=== PATIENT | male | born 1960 | race Hispanic/Latino ===

== ENCOUNTER 2023-10-28 08:37 | Outpatient (CLI) | payer MEDICARE, MEDICAID, SELFPAY ==
--- NOTE | 2023-10-28 09:09 | ECG_ITS ---
Test Date: 2023-10-28 09:46:30 Measurements Intervals [place] Rate: 78 P: 41 KS: 120 QRS: -21 QRSD: 79 T: 11 QT: 345 QTc: 394 Interpretive Statements SINUS RHYTHM BASELINE ARTIFACT- I, III, AVR, AVL, AVF, V1-V6 NORMAL ECG No previous ECG available for comparison Electronically Signed On 10-28-2023 10:49:25 CDT by Zay Stapleton D.O.
[2023-10-28 10:06] LABS: Basophils Percent Auto 0.4 % (0.2-1.2); Eosinophils Absolute Auto 0.1 K/mm3 (0-0.3); Eosinophils Percent Auto 1.7 % (0-4.4); Hemoglobin 12.3 g/dL (14.0-18.0); Immature Granulocyte Absolute 0.01 K/mm3 (0.00-0.031); Immature Granulocyte Percent A 0.2 % (0-0.5); Lymphocytes Absolute Auto 1.09 K/mm3 (0.9-3.2); Lymphocytes Percent Auto 23.2 % (18.3-44.2); Mean Corpuscular HGB Conc 34.2 g/dl (32-36); Mean Corpuscular Hemoglobin 30.4 pg (26-34); Mean Corpuscular Volume 89.1 fl (80-100); Monocytes Absolute Auto 0.5 K/mm3 (0.1-0.6); Monocytes Percent Auto 10.4 % (2.6-8.5); Neutrophils Percent Auto 64.1 % (45.5-73.1); Platelet Count Result 355 k/mm3 (150-375); Red Blood Count 4.04 M/mm3 (4.6-6.20); Red Cell Distribution Width 12.7 % (11.5-14.5); White Blood Count 4.7 K/mm3 (4.5-10.0)
[2023-10-28 10:26] LABS: Alanine Aminotransferase 17 U/L (6-50); Albumin Level 4.3 g/dL (3.5-5.1); Alkaline Phosphatase 93 U/L (38-126); Anion Gap 5 mmol/L (4-12); Aspartate Amino Transferase 23 U/L (17-59); Bilirubin,Total 0.7 mg/dL (0.2-1.3); Blood Urea Nitrogen 6 mg/dL (9-20); CRP < 0.5 mg/dL (<1.0); Calcium 9.5 mg/dL (8.4-10.2); Carbon Dioxide 27 mmol/L (22-30); Chloride 102 mmol/L (98-107); Estimated Glomerular Filt Rate > 60; Glucose 116 mg/dL (65-110); Potassium 4.4 mmol/L (3.4-5.0); Sodium 134 mmol/L (137-145)
[2023-10-28 10:33] LABS: Urine Cotinine NEGATIVE
[2023-10-28 10:36] LABS: Erythrocyte Sedimentation Rate 11 mm/hr (0-20)
[2023-10-28 11:03] LABS: Hemoglobin A1C 5.6 % (<5.7)
== END 2023-10-28 08:38 | disposition home or self-care (01) ==
LOC: ANHSURGERY 08:42
PROVIDERS: PCP Internal Medicine; Visit Provider Orthopaedic Surgery
DX: T84.84XA Pain due to internal orthopedic prosthetic devices, implants and grafts, initial encounter (principal); Z96.659 Presence of unspecified artificial knee joint
CPT/HCPCS: 36415; 80053; 80307; 83036; 85025; 85652; 86140; 86850; 86900; 86901; 87077; 87081; 87181; 93005

== ENCOUNTER 2023-11-10 07:00 | Inpatient (IN) | payer MEDICARE, MEDICAID, SELFPAY ==
[2023-11-03 09:24] VITALS: BMI 27.5
--- NOTE | 2023-11-03 11:55 | PC.NURSE ---
Report to the Outpatient Waiting Room, entrance under the green pavilion located off [facility], at time __6:00AM on date __11/10/23 . Planned Procedure Time: __7:30AM . Time changes happen often and if your time is changed the preop area will call you the afternoon before. - You and your visitor will be asked to self-screen and do not enter if you have any COVID symptoms. - A mask is optional within the hospital at this time. Patients may have clear liquids (water, carbonated beverages, clear teas, apple juice) until 3 hours prior to surgery with a maximum of 20 ounces. - No food from midnight until time of surgery. Take the following medications with a SIP of water the morning of surgery: ___BENZTROPINE, BUPROPION, LEVOTHYROXINE DO NOT STOP ANY OF YOUR OTHER PRESCRIPTION MEDICATIONS PRIOR TO SURGERY ?EXCEPT THE FOLLOWING Medications to discontinue per physician ___HOLD ASPIRIN, NAPROXEN & ALL VITAMINS/SUPPLEMENTS 7 DAYS PRE-OP PER DR LIM Date to take last dose____11/02/23 Please no make-up, nail upper sorbian, hairspray, perfume, deodorant, or body powder the day of surgery. No jewelry (including any body piercings) or valuables the day of surgery, leave them at home. Please take a shower or bath the night before, or the morning of, surgery with an antibacterial soap. Wear comfortable, loose fitting clothing. - Jewelry must be removed prior to entering the operating room. Rings and piercings that are not removed may be cut off. - The hospital will not accept responsibility for valuables. - Please leave all valuables, including medications, at home the day of surgery. If you are going home after surgery, a licensed drivers' cash clerk must drive you home. - NO public transportation without another adult if you receive anesthesia. - We recommend that an adult stay with you for 24 hours following discharge. - We also recommend that you do not drive, make important decision, drink alcoholic beverages, or take any drugs that were not prescribed by your health care provider for at least 24 hours after your discharge time. Follow any additional instructions given to you from your surgeon. HIBICLENS SHOWER PER DR LIM. DON'T REMOVE ANY HAIR FROM LEGS PRE-OP. If you or anyone in your household have experienced Covid symptoms in the past week, please notify your surgeon or the nurse liaison at the phone number below for possible testing. Telephone instructions given to ____PATIENT & CASE WORKER and asked if any additional questions and then verbalized understanding. Patient advised to call surgeon office or pre surgery nurse liaison [phone] if any additional questions.
--- NOTE | 2023-11-09 11:04 | P.HP_ITS ---
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 Barajas who presents today for revision of his left [place] partial knee replacement to total knee replacement. Patient underwent [place] partial knee replacement in October of 2017. He had uneventful recovery. Overall knee was doing well for him. Patient started experiencing pain in the knee that started earlier this year. At this point patient is having rather significant pain in the knee on a daily basis. He has been using a 4 wheeled walker because of the pain. He has developed severe lateral compartment osteoarthritis in the knee. At this point it is bone on bone. Patient has been taking naproxen 500 mg b.i.d. without improvement of his symptoms. Aspiration was done at [place] which was normal and cultures were negative.. He is had a sed rate and CRP blood work done which were both normal as well. This would rule out infection. Patient is having significant pain on a daily basis and feels he would like to proceed with revision his partial knee replacement to total knee replacement. Review of Systems Review of Systems: All systems reviewed & are unremarkable except as noted in HPI and below PMFSH Past Medical History Medical History Pure hypercholesterolemia, unspecified Type 2 diabetes mellitus with hyperglycemia Surgical History Surgical History History of cataract extraction History of hand surgery left History of knee surgery Left Uni- Dr Hinton Social History Social History Smoking packs per day: 1.5 Smoking cigarettes per day: 30.0 Years smoked: 30 Smoking pack-years: 45.00 Smoking status: Former smoker Tobacco type: cigarettes Smoking end date: 10/25/06 Alcohol intake: former Alcohol use details: QUIT 44 YRS AGO Substance use type: does not use Do You Feel Safe in your Home?: Yes Lack of Transportation: No Lack of Food: Never True Current Housing: I Have Housing Concerned About Future Housing: No Difficulty Paying Gas/Electric Bills: No Difficulty Paying for Meds: No Currently Unemployed: No Education: High School Diploma/GED Difficulty w/ Childcare or Family Care: No Living arrangements: alone Additional living arrangements comments: supervised housing Occupation/Education: unemployed Spiritual care concerns: No Meds Home Medications and Allergies Home Medications Medication Instructions Recorded Confirmed Type allopurinol 100 mg tablet 100 mg PO DAILY 05/03/19 11/03/23 History benztropine 1 mg tablet 1 mg PO BID 05/03/19 11/03/23 History bupropion HCl 150 mg 24 hr tablet, See Rx Instructions .Route .COMPLEX 05/03/19 11/03/23 History extended release ezetimibe 10 mg tablet (Zetia) 10 mg PO DAILY 05/03/19 11/03/23 History omeprazole 20 mg capsule,delayed 20 mg PO DAILY 05/03/19 11/03/23 History release risperidone 4 mg tablet 4 mg PO BID 05/03/19 11/03/23 History simvastatin 20 mg tablet 20 mg PO QPM 05/03/19 11/03/23 History mecobalamin (vitamin B12) 1,000 1,000 mcg PO DAILY 11/09/19 11/03/23 History mcg chewable tablet tamsulosin 0.4 mg capsule 0.4 mg PO HS 11/09/19 11/03/23 History vitamin E (dl, acetate) 180 mg 400 mg PO DAILY 11/09/19 11/03/23 History (400 unit) capsule pen needle, diabetic 31 gauge x See Rx Instructions .Route 05/21/21 11/03/23 Rx 5/16 (Easy Touch) .COMPLEX #100 ea blood sugar diagnostic #300 ea 07/02/21 10/28/23 Rx lancets 33 gauge (OneTouch Delica #300 ea 10/30/22 10/28/23 Rx Plus Lancet) acetaminophen 500 mg tablet 1,000 mg PO Q8-10H PRN Pain 11/03/23 11/03/23 History aspirin 81 mg tablet 81 mg PO DAILY 11/03/23 11/03/23 History insulin glargine 100 unit/mL (3 30 unit subcut QAM 11/03/23 11/03/23 History mL) subcutaneous pen (Lantus Solostar U-100 Insulin) levothyroxine 25 mcg tablet 25 mcg PO QAM 11/03/23 11/03/23 History lidocaine 5 % topical patch 1 patch topical BID PRN Pain 11/03/23 11/03/23 History metformin 500 mg tablet 1,000 mg PO QPM 11/03/23 11/03/23 History mupirocin 2 % topical ointment 1 applic topical BID #22 grams 11/03/23 Rx naproxen 500 mg tablet 500 mg PO BID PRN Pain 11/03/23 11/03/23 History Allergies Allergy/AdvReac Type Severity Reaction Status Date / Time sulfamethoxazole Allergy Severe Unknown Verified 11/03/23 09:18 [From Bactrim] trimethoprim [From Bactrim] Allergy Severe Unknown Verified 11/03/23 09:18 Exam Narrative: 63-year-old male alert. BMI is 27.5. H e has a moderate effusion in the left knee. Range of motion is from 0-135 degrees. Zzzi-ki-xumleabi lateral pseudolaxity to varus stress. No medial laxity. No tenderness over the medial aspect of the knee. Moderate pain with patellofemoral grind. Mild lateral joint line tenderness. Hip range of motion is full without discomfort, negative Stinchfield maneuver. He has extensive venous stasis skin changes in his calves. No edema in lower extremities. Resp: Auscultation: clear to auscultation bilaterally Cardio: Rate: regular rate Rhythm: regular rhythm Assessment and Plan Assessment and plan (1) Status post unicompartmental knee replacement, left: Code(s): Z96.652 - Presence of left artificial knee joint Status: Acute Assessment and Plan: 63-year-old male who has developed lateral compartment osteoarthritis in the left knee since his partial knee replacement in 2018. He is having significant symptoms on a daily basis. Anti-inflammatories are not improving his pain level. The option of revision of his left knee from partial knee replacement to total knee replacement was discussed and patient would like to proceed with that. Surgical procedure as well as the risks and complications were discussed in detail and all questions were answered and we will proceed. He will see his primary care doctor pre-surgical clearance. He will stop his naproxen and his baby aspirin 1 week prior to surgery. 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 Hemoglobin is 12.3 and platelets are 355. Chem panel was all within normal limits. Hemoglobin A1c is 5.6.
[2023-11-10] VITALS (14 sets, daily range): BP systolic 133–159; BP diastolic 67–85; PULSE 76–88; RESP 12–20; TEMP 36.1–36.9; O2SAT 94–99; BMI 22.5
--- NOTE | ~2023-11-10 | XR_ITS ---
EXAMINATION: [id number] DATE: 11/10/2023 12:10 CDT INDICATION: Left total knee arthroplasty TECHNIQUE: 2 views left knee FINDINGS: There is a left total knee arthroplasty in expected position. Subcutaneous gas with fluid and air in the joint and overlying skin sarbjit are consistent with recent surgery. No evidence of pe riprosthetic fracture. IMPRESSION: 1. Recent left total knee arthroplasty. Reviewed, dictated and finalized at location B.
[2023-11-10] MEDS: LACTATED RINGERS 1,000 ML 30 ML IV CONT ×2 (06:48→12:07)
[2023-11-10] MEDS: VANCOMYCIN 1,250 MG/NS 250 ML BAG 166.67 MG IVPB (06:49)
[2023-11-10 06:50] LABS: Glucose Point of Care 101 mg/dl (65-105)
[2023-11-10] MEDS: ACETAMINOPHEN 500 MG TABLET 1000 MG PO (06:50)
[2023-11-10] MEDS: TRANEXAMIC ACID 1,000MG/ISO100 1,000 MG/100 ML BAG 200 MG IVPB (06:55)
--- NOTE | 2023-11-10 07:10 | WPDHPUPDATE1 ---
History and Physical Update Update Date/Time: 11/10/23 07:10 History and Physical has been reviewed, including an updated exam of the patient. There are NO changes in the patient's condition. Risks, benefits, and alternatives have been discussed and questions answered. Patient agrees to proceed with procedure.
--- NOTE | 2023-11-10 07:17 | WPDANESEPPF ---
Anes - Initial Pre Proc Eval Procedure: Operation Date: 11/10/23 07:30 Proposed Procedures p Revision Left Total Knee Arthroplasty - Hitesh Hinton MD Date/Time: 11/10/23 07:17 Surgeon: Hitesh Hinton MD Pre Op Diagnosis: failed partial left total knee,valgus deformity Patient Data Age: 63 Gender: M Height: 1.65 m Weight: 73.6 kg Last Vital Signs Temp 98.1 F 11/10/23 06:30 Pulse 79 11/10/23 06:30 Resp 18 11/10/23 06:30 BP 144/76 H 11/10/23 06:30 Pulse Ox 99 11/10/23 06:30 O2 Del Method Room Air 11/10/23 06:30 Allergies Allergy/AdvReac Type Severity Reaction Status Date / Time sulfamethoxazole Allergy Severe Unknown Verified 11/10/23 06:27 [From Bactrim] trimethoprim [From Bactrim] Allergy Severe Unknown Verified 11/10/23 06:27 Home Medications Medication Instructions Recorded Confirmed Type allopurinol 100 mg tablet 100 mg PO DAILY 05/03/19 11/10/23 History benztropine 1 mg tablet 1 mg PO BID 05/03/19 11/10/23 History bupropion HCl 150 mg 24 hr tablet, See Rx Instructions .Route .COMPLEX 05/03/19 11/10/23 History extended release ezetimibe 10 mg tablet (Zetia) 10 mg PO DAILY 05/03/19 11/10/23 History omeprazole 20 mg capsule,delayed 20 mg PO DAILY 05/03/19 11/10/23 History release risperidone 4 mg tablet 4 mg PO BID 05/03/19 11/10/23 History simvastatin 20 mg tablet 20 mg PO QPM 05/03/19 11/10/23 History mecobalamin (vitamin B12) 1,000 1,000 mcg PO DAILY 11/09/19 11/10/23 History mcg chewable tablet tamsulosin 0.4 mg capsule 0.4 mg PO HS 11/09/19 11/10/23 History vitamin E (dl, acetate) 180 mg 400 mg PO DAILY 11/09/19 11/10/23 History (400 unit) capsule pen needle, diabetic 31 gauge x See Rx Instructions .Route 05/21/21 11/10/23 Rx 09/09 (Easy Touch) .COMPLEX #100 ea blood sugar diagnostic #300 ea 07/02/21 11/10/23 Rx lancets 33 gauge (OneTouch Delica #300 ea 10/30/22 11/10/23 Rx Plus Lancet) acetaminophen 500 mg tablet 1,000 mg PO Q8-10H PRN Pain 11/03/23 11/10/23 History aspirin 81 mg tablet 81 mg PO DAILY 11/03/23 11/10/23 History insulin glargine 100 unit/mL (3 30 unit subcut QAM 11/03/23 11/10/23 History mL) subcutaneous pen (Lantus Solostar U-100 Insulin) levothyroxine 25 mcg tablet 25 mcg PO QAM 11/03/23 11/10/23 History lidocaine 5 % topical patch 1 patch topical BID PRN Pain 11/03/23 11/10/23 History metformin 500 mg tablet 1,000 mg PO QPM 11/03/23 11/10/23 History mupirocin 2 % topical ointment 1 applic topical BID #22 grams 11/03/23 11/10/23 Rx naproxen 500 mg tablet 500 mg PO BID PRN Pain 11/03/23 11/10/23 History Laboratory Tests 11/10/23 06:47 POC Capillary Glucose 101 mg/dl (65-105) Patient hx anesthesia problems: none Family hx anesthesia problems: none Results Review: All pre-operative results and documents have been reviewed as part of the pre-operative evaluation. [facility] Past Medical History Medical History Pure hypercholesterolemia, unspecified Type 2 diabetes mellitus with hyperglycemia Surgical History Surgical History History of cataract extraction History of hand surgery left History of knee surgery Left Uni- Dr Hinton Social History Social History Smoking packs per day: 1.5 Smoking cigarettes per day: 30.0 Years smoked: 30 Smoking pack-years: 45.00 Smoking status: Former smoker Tobacco type: cigarettes Smoking end date: 10/25/06 Alcohol intake: former Alcohol use details: QUIT 44 YRS AGO Substance use type: does not use Do You Feel Safe in your Home?: Yes Lack of Transportation: No Lack of Food: Never True Current Housing: I Have Housing Concerned About Future Housing: No Difficulty Paying Gas/Electric Bills: No Difficulty Paying for Meds: No Currently Unemployed: No Education: High School Diploma/GED Difficulty w/ Childcare or Family Care: No Living arrangements: alone Additional living arrangements comments: supervised housing Occupation/Education: unemployed Spiritual care concerns: No Anes - Eval Final PreProcedure Day of Procedure 11/10/23 07:17 Patient weight: normal Heart: regular rate and rhythm Lungs: clear to auscultation Airway: Mallampati scale class III Neurological: alert and oriented Last oral intake: >/= 8 hours ASA classification: III Emergent: no Anesthetic plan: proceed Anesthesia type and monitoring: general ETT and standard monitoring Results Review: All pre-operative results and documents have been reviewed as part of the pre-operative evaluation. Informed Consent: The patient's anesthetic plan and its attendant risks and benefits were discussed with the patient/family/POA. Questions were solicited and answers provided to the satisfaction of the patient/family/POA.
[2023-11-10] MEDS: ceFAZolin 2 GM/D5W 50 ML 2 GM/50 ML BAG IVPB ×3 (07:34→22:16)
[2023-11-10] MEDS: SODIUM CHLORIDE 0.9% IV 37.7 ML, MORPHINE SULFATE INJ (*CRX) 2 MG, ROPivacaine HCL 1% 2... INFILTRATE (07:55)
[2023-11-10] MEDS: ceFAZolin SODIUM 1 GM VIAL 3 GM (08:08)
[2023-11-10] MEDS: KETOROLAC 15 MG/ML VIAL (*BKC) IV PUSH ×3 (11:07→22:15)
[2023-11-10] MEDS: TRANEXAMIC ACID 1,000 MG/10 ML AMPUL 1000 MG IV PUSH (11:09)
[2023-11-10] MEDS: ceFAZolin SODIUM 1 GM VIAL 2 GM IV PUSH (11:09)
--- NOTE | 2023-11-10 12:04 | W.PM.PROC2 ---
Procedure Note - Detailed Date of Procedure 11/10/23 Pre-op Diagnosis failed medial compartment partial knee replacement due to development of advanced lateral compartment osteoarthritis Post-op Diagnosis Same Procedure Performed Revision total knee arthroplasty Surgeon Hitesh Hinton MD Concrete Spreader Gema Anesthesia General Description of Procedure Patient was brought to the operating room and general anesthesia was administered. He received 2 g of Ancef weight based vancomycin 1 g of TXA preoperatively. The left knee was prepped draped usual fashion. He appeared to have full extension preoperatively. There was correct ability of his valgus deformity passively also. Limb was exsanguinated tourniquet elevated to 275 mmHg. The previous anteromedial incision from his [place] partial knee replacement was utilized. Standard parapatellar arthrotomy utilized. Partial excision of scarred infrapatellar fat pad was performed. The joint fluid was clear yellow. He did have quite a bit of hemosiderin stained synovium from previous hemarthrosis and synovectomy was performed. The mobile bearing was removed without difficulty. Which showed no signs of wear. A guide temo was inserted on the femoral canal after aspiration of canal contents using the 5 degree valgus cutting bushing, 9 mm of bone removed the distal femur referencing off the [place] femoral component on the medial femoral condyle. The lateral condyle was eburnated distally and posteriorly. This removed 6 mm laterally. The femoral component was then circumferentially undermined using narrow flexible osteotome circumferentially and the delicate slap hammer from the [place] set was applied and the component extracted cleanly the with the cement mantle still attached to the component for the most part except for in the keel holes in which the cement remained. I did note that the bone was very osteopenic distally. Posteriorly the posterior femoral condylar bone was in excellent condition. At this time we completed the distal femoral cut of the medial femoral condyle. Next the medial tibial plateau tibial component was removed by 1st using a microsagittal saw lateral to the keel till it was buried and freeing the bone away from the vertical wall in the intercondylar region and then using a flexible quarter-inch osteotome to free the cement mantle approximately 2[address] lateral to the keel. We could see this was starting to loosen and a persuader impactor easily tapped out the implant from the anterior edge and again no bone loss except for the central defect from the field and cement mantle. Again the bone was a bit osteoporotic. The rim was intact circumferentially. The tibial cutting guide was then applied. We referenced removal about a mm of bone from the medial tibial plateau as a very conservative clean-up cut and we made this perpendicular to the axis of tibia and the tibial cut was made and alignment confirmed the appropriate. The femoral sizing guide was applied to the tibia set at 5? of external rotation with the posterior footprint set 7 mm posterior to the remaining posterior medial femoral condyle and this matched [place] line exactly and the pin holes were placed. We applied the 67.5 cutting block. I could see it was a little too wide. AP and chamfer cuts were made. We confirmed that the 67.5 was a little too wide. A 14 mm CR trial was placed to assess the mediolateral balance at 90? of flexion and there is about 2.5 mm of play with a Reed elevator bilaterally so it seemed symmetric. Therefore we applied the 65 femoral cutting block additionally stabilized with the spring pins and downsized pre cutting the anterior cut and anterior chamfer and the 65 fit line to line distally. The tibial plateau was then prepared. The quality of the bone laterally was excellent. The lateral cut was just under the area of bone where posterior aspect of the lateral femoral condyle and a cancellous bone here was very dense but the bone medially was soft under the removed medial implant tray and I felt that augmentation with the cemented 80 mm stem would be necessary to prevent late varus collapse into the soft bone in the medial tibial plateau. The appropriate tibial trial was applied to the tibia set at proper rotation and pinned in place after which we applied the tower and reamed and punched for the 80 mm stem a thin. Alignment was confirmed. We then trialed with the 12 and the knee lacked just a few degrees of extension with 2 mm of medial and lateral play with the 12 but was too loose in flexion. We trialed with the 14 and there was appropriate stability at 90? of flexion with few mm of anterior drawer play and at deep flexion with the arthrotomy towel clip there was no anterior drawer play. However the knee lacked extension with a 14. Therefore an additional 2 mm of bone removed the distal femur and this got us down to normal bone medially. Chamfer cuts revisited and we confirmed there was no remaining posterior femoral bone proximal to the posterior aspect of the component and a conservative central posterior capsular release was performed and we trialed with the 10 . This had appropriate stability to anterior posterior wooden shade hardware installer all positions. At 90? there is about a mm or mm half of medial lateral opening with valgus and varus stress. It once again lacked a few degrees of extension with the barely positive bounce. The knee opened up 2-3 mm medially in extension 2 mm laterally. A more thorough posterior capsular release was performed and on read trialing the knee came to full extension with negative bounce even with the arthrotomy towel clipped and with the arthrotomy approximated medial opening was 2 mm and lateral opening 2 mm. Patellar tracking was central throughout range of motion. Lug holes were drilled in the femoral trial. This point the limb was re-exsanguinated and tourniquet elevated to 200 C5 mmHg. It had been put down earlier at 90 minutes. We thoroughly irrigated the bony surfaces. A step drill was used to make perforations in the distal femur and lateral tibial plateau which had good bone density. Bony surfaces were again thoroughly irrigated and dried. Two batches of methylmethacrylate were mixed from the gentamicin powder. Cement applied to the size 71 vanguard tibia with the 80 mm by 10 mm finned stem assembled to the tray. Cement applied to the 65 left CR femoral component. Cement applied the tibial plateau and in the canal pressurized tibial component fully seated cement applied the femur the femoral component fully seated the knee brought into extension with a 14 mm 5 and 1 insert and cement was pressurized. Tourniquet was released total tourniquet time 109 minutes. After cement hardening excess cement was sought for and removed and hemostasis was achieved. Estimated blood loss was 350 cc total. We trialed with a 14 insert which had the same stability findings as above and this was placed without difficulty locked the locking pin range of motion stability patellar tracking reconfirmed. Arthrotomy was closed with 2. Vicryl Plus and 1. Unidirectional barbed Stratafix suture. Skin closed with 2 subcutaneous Vicryl 3-0 subcuticular Monocryl and glue. Two additional g of Ancef and 1 g of TXA given time wound closure. He was transferred postop recovery room in stable condition. No known complications. Keflex Estimated Blood Loss 350 Tourniquet Time Total Tourniquet Time: 109 [facility]G Billing Surgery - Charge Forward: Surgery Billing (Revision left total knee arthroplasty femur and tibial components)
--- NOTE | 2023-11-10 12:25 | PM.OP ---
Procedure Note - Brief Procedure Note - Brief Date of procedure: 11/10/23 failed partial left total knee,valgus deformity Procedure performed: Revision left total knee arthroplasty Surgeon: JCARLOS Schwartz Description of procedure: 63-year-old male who underwent revision of his field partial knee replacement left knee to total knee replacement. I was involved in the procedure including positioning the patient on the OR table and 1st assisting through the time of surgery including wound closure. I assisted in getting patient to recovery room. Total time spent was 41/2 hours
[2023-11-10 12:55] LABS: Glucose Point of Care 174 mg/dl (65-105)
--- NOTE | 2023-11-10 13:40 | ADMGEN ---
This patient, Emiliano Lovelace, was admitted to [facility] Surg Room 328-01. Patient/family oriented to hospital policies and general routines including ID bracelet, bed and alarms, visiting hours, pain management, procedures, bathroom and other care routines, personal items, smoking policy, room service/diet, and visiting hours. Information on how to activate the Rapid Response Team has been discussed. Patient/Family are encouraged to report perceived risks to care and to ask questions if they do not understand what they are told or what they should do.
[2023-11-10] MEDS: oxyCODONE HCL (*CRX) 5 MG TAB IR PO ×3 (13:58→20:22)
[2023-11-10] MEDS: ACETAMINOPHEN 325 MG TABLET 650 MG PO ×3 (13:58→20:22)
[2023-11-10] MEDS: buPROPion HCL XL (24 HR) 150 MG TABCR 300 MG BY MOUTH (14:05)
--- NOTE | 2023-11-10 14:06 | P.CONS_ITS ---
Assessment and Plan Assessment and plan (1) Primary osteoarthritis of left knee: Code(s): M17.12 - Unilateral primary osteoarthritis, left knee Status: Acute Assessment and Plan: Postoperative day 0, status post revision total knee arthroplasty. Wound care, pain control, and DVT prophylaxis deferred to Dr. Hinton. 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 Initiate sliding scale insulin, Accu-Cheks, and hypoglycemic protocol. (3) Hypothyroidism: Code(s): E03.9 - Hypothyroidism, unspecified Status: Acute Assessment and Plan: Continue levothyroxine and check TSH. (4) Dyslipidemia: Code(s): E78.5 - Hyperlipidemia, unspecified Status: Acute Assessment and Plan: Resume ezetimibe and simvastatin. (5) Benign prostatic hyperplasia: Code(s): N40.0 - Benign prostatic hyperplasia without lower urinary tract symptoms Status: Acute Assessment and Plan: No current issues, he reports he is urinating without problems. Continue tamsulosin and bladder scan p.r.n. (6) Schizophrenia: Code(s): F20.9 - Schizophrenia, unspecified Status: Acute Assessment and Plan: Continue risperidone and benztropine. (7) Gastroesophageal reflux disease: Code(s): K21.9 - Gastro-esophageal reflux disease without esophagitis Status: Acute Assessment and Plan: Continue PPI. (8) Gout: Code(s): M10.9 - Gout, unspecified Status: Acute Assessment and Plan: No current issues, continue allopurinol. Plan Thank you for allowing us to participate in this patient's care. Please do not hesitate to contact us with any questions. HPI Data of Consult Date/Time: 11/10/23 14:45 Requesting Physician: Hitesh Hinton MD Consult Narrative Reason for consult: Medical management. Narrative: This is a pleasant 63-year-old male with osteoarthritis, insulin-dependent diabetes, hypothyroidism, dyslipidemia, gastroesophageal reflux disease, benign prostatic hyperplasia, and schizophrenia whom the hospitalist service has been consulted for help managing his medical problems postoperatively. He presented today for revision of left total knee arthroplasty. Surgery was performed under general anesthesia with no immediate complications documented and an estimated blood loss of 350 mL. At the time my evaluation he is resting comfortably and reports that his pain is well controlled. He denies fever, chills, sweats, chest pain, shortness of breath, nausea, and vomiting. He also denies paresthesias, skin color, temperature changes distal to the surgical site. Regarding his chronic medical conditions, he believes they are well controlled on home medications. Upon discharge he will return to his own apartment at [place] and he reports that staff has previously been very helpful when he has had surgery. Review of Systems Review of Systems: 12 systems were reviewed and are negativ e except for as per HPI. [facility] Past Medical History Medical History (Updated 11/10/23 @ 14:14 by Tamie Pagan PA-C) Benign prostatic hyperplasia Dyslipidemia Gastroesophageal reflux disease Gout Hypothyroidism Insulin dependent type 2 diabetes mellitus Schizophrenia Surgical History Surgical History (Updated 11/10/23 @ 14:11 by Tamie Pagan PA-C) History of cataract extraction History of hand surgery left History of left knee replacement Left [place] partial knee replacement per Dr. Hinton with revision on 11/10/2023. Family History Family History (Updated 11/10/23 @ 14:09 by Tamie Pagan PA-C) Other Family history unknown Social History Social History (Updated 11/10/23 @ 14:10 by Tamie Pagan PA-C) Social History: Surrogate medical decision maker: Elisejulia Arias, friend. Code status: Full code. Smoking packs per day: 1.5 Smoking cigarettes per day: 30.0 Years smoked: 30 Smoking pack-years: 45.00 Smoking status: Former smoker Alcohol intake: former Substance use type: does not use Do You Feel Safe in your Home?: Yes Lack of Transportation: No Lack of Food: Never True Current Housing: I Have Housing Concerned About Future Housing: No Difficulty Paying Gas/Electric Bills: No Difficulty Paying for Meds: No Currently Unemployed: No Education: High School Diploma/GED Difficulty w/ Childcare or Family Care: No Living arrangements: alone Additional living arrangements comments: supervised housing Occupation/Education: unemployed Spiritual care concerns: No Meds Home Medications and Allergies Home Medications Medication Instructions Recorded Confirmed Type allopurinol 100 mg tablet 100 mg PO DAILY 05/03/19 11/10/23 History benztropine 1 mg tablet 1 mg PO BID 05/03/19 11/10/23 History bupropion HCl 150 mg 24 hr tablet, See Rx Instructions .Route .COMPLEX 05/03/19 11/10/23 History extended release ezetimibe 10 mg tablet (Zetia) 10 mg PO DAILY 05/03/19 11/10/23 History omeprazole 20 mg capsule,delayed 20 mg PO DAILY 05/03/19 11/10/23 History release risperidone 4 mg tablet 4 mg PO BID 05/03/19 11/10/23 History simvastatin 20 mg tablet 20 mg PO QPM 05/03/19 11/10/23 History mecobalamin (vitamin B12) 1,000 1,000 mcg PO DAILY 11/09/19 11/10/23 History mcg chewable tablet tamsulosin 0.4 mg capsule 0.4 mg PO HS 11/09/19 11/10/23 History vitamin E (dl, acetate) 180 mg 400 mg PO DAILY 11/09/19 11/10/23 History (400 unit) capsule pen needle, diabetic 31 gauge x See Rx Instructions .Route 05/21/21 11/10/23 Rx 16 (Easy Touch) .COMPLEX #100 ea blood sugar diagnostic #300 ea 07/02/21 11/10/23 Rx lancets 33 gauge (OneTouch Delica #300 ea 10/30/22 11/10/23 Rx Plus Lancet) acetaminophen 500 mg tablet 1,000 mg PO Q8-10H PRN Pain 11/03/23 11/10/23 History aspirin 81 mg tablet 81 mg PO DAILY 11/03/23 11/10/23 History insulin glargine 100 unit/mL (3 30 unit subcut QAM 11/03/23 11/10/23 History mL) subcutaneous pen (Lantus Solostar U-100 Insulin) levothyroxine 25 mcg tablet 25 mcg PO QAM 11/03/23 11/10/23 History lidocaine 5 % topical patch 1 patch topical BID PRN Pain 11/03/23 11/10/23 History metformin 500 mg tablet 1,000 mg PO QPM 11/03/23 11/10/23 History mupirocin 2 % topical ointment 1 applic topical BID #22 grams 11/03/23 11/10/23 Rx naproxen 500 mg tablet 500 mg PO BID PRN Pain 11/03/23 11/10/23 History Allergies Allergy/AdvReac Type Severity Reaction Status Date / Time sulfamethoxazole Allergy Severe Unknown Verified 11/10/23 06:27 [From Bactrim] trimethoprim [From Bactrim] Allergy Severe Unknown Verified 11/10/23 06:27 Vital Signs Vital Signs - 24 hr 11/10/23 06:30 11/10/23 12:07 11/10/23 12:20 Temperature 98.1 F 98.3 F Pulse Rate 79 87 82 Respiratory Rate 18 12 12 Blood Pressure 144/76 H 133/68 138/69 Pulse Oximetry 99 97 98 Oxygen Delivery Room Air Simple Face Mask Simple Face Mask Oxygen Flow Rate 6 6 11/10/23 12:50 11/10/23 13:03 11/10/23 13:05 Temperature Pulse Rate 83 85 Respiratory Rate 12 12 Blood Pressure 149/75 H 151/76 H Pulse Oximetry 99 95 Oxygen Delivery Simple Face Mask Room Air Room Air Oxygen Flow Rate 11/10/23 13:20 11/10/23 12:35 11/10/23 13:40 Temperature 97.8 F 97.0 F L Pulse Rate 86 80 85 Respiratory Rate 12 12 18 Blood Pressure 144/81 H 145/71 H 151/77 H Pulse Oximetry 94 98 97 Oxygen Delivery Room Air Simple Face Mask Oxygen Flow Rate 11/10/23 13:55 Temperature 97.0 F L Pulse Rate 80 Respiratory Rate 18 Blood Pressure 150/85 H Pulse Oximetry 98 Oxygen Delivery Oxygen Flow Rate Exam Narrative: General: Well-developed, nontoxic-appearing male in the semi-Collins position in bed. Weight: 79.6 kg. BMI: 22.5. HEENT: Wearing corrective lenses. PERRL, EOMI. Sclera anicteric. Oral mucosa moist. Neck: Supple. Respiratory: Lungs are clear to auscultation bilaterally. Cardiovascular: Regular rate and rhythm with S1-S2. Gastrointestinal: Abdomen is soft, nontender, and nondistended with positive bowel sounds. Skin: Warm and dry. No rash or lesions on limited exam. Extremities: No cyanosis, clubbing, or edema. Radial and pedal pulses intact. Musculoskeletal: Left knee dressing is clean, dry, and intact. He is neurovascularly intact distal to the surgical site. Mild swelling about the upper part of the knee. No bruising or hematoma noted. Neurological: Alert. Cranial nerves 2-12 grossly intact. No gross focal deficits to casual conversation. Psychiatric: Pleasant and cooperative with appropriate mood. He is in good spirits.
[2023-11-10 14:27] LABS: Glucose Point of Care 169 mg/dl (65-105)
[2023-11-10] MEDS: BENZTROPINE MESYLATE 1 MG TABLET PO (16:04)
[2023-11-10] MEDS: SENNA/DOCUSATE SODIUM TABLET 2 TAB PO (16:05)
--- NOTE | 2023-11-10 16:05 | PCPTNOTE ---
On 11/10/23, the student, [Connie Hoyos], provided care and completed [facility] documentation on this patient. I have reviewed the student's documentation and agree with the findings.
[2023-11-10 16:28] LABS: Glucose Point of Care 197 mg/dl (65-105)
[2023-11-10] MEDS: VANCOMYCIN 1,000 MG/NS 250 ML 1,000 MG/250 ML BAG 250 MG IVPB (16:55)
[2023-11-10] MEDS: metFORMIN HCL 500 MG TABLET 1000 MG PO (16:55)
[2023-11-10] MEDS: SIMVASTATIN 20 MG TABLET PO (16:55)
[2023-11-10] MEDS: risperiDONE 1 MG TABLET 4 MG PO (20:21)
[2023-11-10] MEDS: FAMOTIDINE 20 MG TABLET PO (20:22)
[2023-11-10] MEDS: INSULIN ASPART (*BKC) 100 UNITS/ML SUB-Q (20:22)
[2023-11-10] MEDS: TAMSULOSIN HCL 0.4 MG CAPSULE PO (20:22)
[2023-11-10 21:06] LABS: Glucose Point of Care 229 mg/dl (65-105)
[2023-11-11] MEDS: ACETAMINOPHEN 325 MG TABLET 650 MG PO ×4 (01:00→17:11)
[2023-11-11] MEDS: oxyCODONE HCL (*CRX) 5 MG TAB IR PO ×7 (01:00→20:32)
[2023-11-11 03:07] VITALS: BP 139/64; PULSE 80; RESP 18; TEMP 36.7; O2SAT 98
[2023-11-11] MEDS: LEVOTHYROXINE SODIUM 25 MCG TABLET PO (05:24)
[2023-11-11] MEDS: VANCOMYCIN 1,000 MG/NS 250 ML 1,000 MG/250 ML BAG 250 MG IVPB (05:25)
[2023-11-11] MEDS: ceFAZolin 2 GM/D5W 50 ML 2 GM/50 ML BAG IVPB (06:30)
[2023-11-11 06:32] LABS: Basophils Percent Auto 0.2 % (0.2-1.2); Eosinophils Percent Auto 0.4 % (0-4.4); Hematocrit 28.3 % (42.0-52.0); Hemoglobin 9.1 g/dL (14.0-18.0); Immature Granulocyte Absolute 0.05 K/mm3 (0.00-0.031); Immature Granulocyte Percent A 0.6 % (0-0.5); Lymphocytes Absolute Auto 1.38 K/mm3 (0.9-3.2); Lymphocytes Percent Auto 16.4 % (18.3-44.2); Mean Corpuscular HGB Conc 32.2 g/dl (32-36); Mean Corpuscular Hemoglobin 30.3 pg (26-34); Mean Corpuscular Volume 94.3 fl (80-100); Mean Platelet Volume 8.2 fl (7.4-10.4); Monocytes Absolute Auto 1.2 K/mm3 (0.1-0.6); Monocytes Percent Auto 14.5 % (2.6-8.5); Neutrophils Absolute Auto 5.7 K/mm3 (1.3-6.7); Neutrophils Percent Auto 67.9 % (45.5-73.1); Platelet Count Result 297 k/mm3 (150-375); Red Cell Distribution Width 12.9 % (11.5-14.5); White Blood Count 8.4 K/mm3 (4.5-10.0)
[2023-11-11 06:38] LABS: Alanine Aminotransferase 14 U/L (6-50); Albumin Level 3.1 g/dL (3.5-5.1); Alkaline Phosphatase 68 U/L (38-126); Anion Gap 9 mmol/L (4-12); Aspartate Amino Transferase 20 U/L (17-59); Bilirubin,Total 0.6 mg/dL (0.2-1.3); Blood Urea Nitrogen 11 mg/dL (9-20); Calcium 8.2 mg/dL (8.4-10.2); Carbon Dioxide 25 mmol/L (22-30); Chloride 98 mmol/L (98-107); Estimated CRCL calculation 103 ml/min; Estimated Glomerular Filt Rate > 60; Glucose 105 mg/dL (65-110); Magnesium 1.7 mg/dL (1.6-2.3); Potassium 3.6 mmol/L (3.4-5.0); Sodium 132 mmol/L (137-145)
--- NOTE | 2023-11-11 06:55 | P.PNOP_ITS ---
Subjective Subjective Date/Time Seen: 11/11/23 06:55 Interval history: Postop day 1 patient is alert. He is afebrile vital signs are stable. Morning labs are noted. Hemoglobin is that 9.1. His dressing is dry and intact. Neurovascularly he is intact. He has only been up to the restroom for ambulation so far. Pain is well controlled. Care coordination has been consulted for acute rehab placement. Patient has a history of schizophrenia as well as drug abuse. He lives in a fpc house the other people with similar problems. He has lived there for over [address] Hinton does not feel this is a safe environment for the patient to return to at this point. He is going to need care readily available for him. His deputy general counsel who has been with him for over 10 year people to be able to do this for him. Also his medication is going to need to be monitored and administered to him on a regular basis. It is not felt that patient is going to be capable to do this if he goes home. Patient would benefit greatly from a rehab at least for a couple of weeks, this way he will have therapy on says and also have nursing care 24 hours a day. His medications get monitored properly as well. His admit status to admit to rather than 23 hour observation Objective Data Vital Signs Vital Signs: Vital Signs - 24 hr 11/10/23 12:07 11/10/23 12:20 11/10/23 12:50 Temperature 98.3 F Pulse Rate 87 82 83 Respiratory Rate 12 12 12 Blood Pressure 133/68 138/69 149/75 H Pulse Oximetry 97 98 99 Oxygen Delivery Simple Face Mask Simple Face Mask Simple Face Mask Oxygen Flow Rate 6 6 6 11/10/23 13:03 11/10/23 13:05 11/10/23 13:20 Temperature 97.8 F Pulse Rate 85 86 Respiratory Rate 12 12 Blood Pressure 151/76 H 144/81 H Pulse Oximetry 95 94 Oxygen Delivery Room Air Room Air Room Air Oxygen Flow Rate 11/10/23 12:35 11/10/23 14:00 11/10/23 13:40 Temperature 97.0 F L Pulse Rate 80 85 Respiratory Rate 12 18 Blood Pressure 145/71 H 151/77 H Pulse Oximetry 98 98 97 Oxygen Delivery Simple Face Mask Room Air Oxygen Flow Rate 6 11/10/23 13:55 11/10/23 14:25 11/10/23 15:14 Temperature 97.0 F L 97.0 F L Pulse Rate 80 88 Respiratory Rate 18 18 Blood Pressure 150/85 H 159/81 H Pulse Oximetry 98 98 Oxygen Delivery Room Air Oxygen Flow Rate 11/10/23 15:25 11/10/23 19:10 11/10/23 23:00 Temperature 97.0 F L 98.4 F 97.7 F Pulse Rate 84 83 76 Respiratory Rate 18 20 18 Blood Pressure 152/72 H 141/68 H 136/67 Pulse Oximetry 99 98 98 Oxygen Delivery Oxygen Flow Rate 11/11/23 03:07 Temperature 98.1 F Pulse Rate 80 Respiratory Rate 18 Blood Pressure 139/64 Pulse Oximetry 98 Oxygen Delivery Oxygen Flow Rate Intake/Output Intake/Output: Intake & Output 11/08/23 11/09/23 11/10/23 11/11/23 23:59 23:59 23:59 23:59 Intake Total 940 100 Output Total 600 Balance 940 -500 Meds/Results Medications: Active Medications Generic Name Dose Route Start Last Admin Trade Name Freq PRN Reason Stop Dose Admin Acetaminophen 650 mg 11/10/23 14:00 11/11/23 05:24 Acetaminophen 325 Mg Tablet PO 650 mg Q4H [facility]KA Administration Allopurinol 100 mg 11/11/23 09:00 Allopurinol 100 Mg Tablet PO DAILY [facility] Apixaban 2.5 mg 11/11/23 09:00 Apixaban 2.5 Mg Tablet PO 11/22/23 21:01 Q12HR [facility] Benztropine Mesylate 1 mg 11/10/23 17:00 11/10/23 16:04 Benztropine Mesylate 1 Mg Tablet PO 1 mg BID [facility]KA Administration Bupropion HCl 300 mg 11/10/23 09:00 11/10/23 14:05 Bupropion Hcl Xl (24 Hr) 150 Mg Tabcr BY MOUTH 300 mg QAM [facility]USKA Administration Bupropion HCl 150 mg 11/11/23 12:00 Bupropion Hcl Xl (24 Hr) 150 Mg Tabcr BY MOUTH DAILY@1200 [facility] Cephalexin HCl 500 mg 11/11/23 12:00 Cephalexin 500 Mg Capsule PO Q6HR [facility] Dextrose 12.5 gm 11/10/23 14:16 Dextrose 50% 25 Gm/50 Ml Syringe IV PUSH PRN PRN Hypoglycemia Protocol Diphenhydramine HCl 25 mg 11/10/23 13:25 Diphenhydramine Hcl Inj 50 Mg/Ml Vial IV PUSH Q6H PRN Itching Ezetimibe 10 mg 11/11/23 09:00 Ezetimibe 10 Mg Tablet PO DAILY [facility] Famotidine 20 mg 11/10/23 21:00 11/10/23 20:22 Famotidine 20 Mg Tablet PO 20 mg Q12HR [facility] Administration Glucagon 1 mg 11/10/23 14:16 Glucagon For Inj 1 Mg Vial IM PRN PRN Hypoglycemia Protocol Glucose 15 gm 11/10/23 14:16 Glucose Oral Gel 15 Gm Of Glucse In 37.5 Gm Tube PO PRN PRN Hypoglycemia Protocol Cefazolin Sodium 2 gm in 50 mls @ 100 mls/hr 11/10/23 15:00 11/11/23 06:30 Ancef 2 Gm/D5w 50 Ml IVPB 11/11/23 07:29 100 mls/hr Q8H [facility]USKA Administration Vancomycin HCl 1,000 mg in 250 mls @ 250 mls/hr 11/10/23 18:00 11/11/23 05:25 Vancomycin 1,000 Mg/Ns 250 Ml IVPB 11/11/23 06:59 250 mls/hr Q12H [facility] Administration Dextrose 1,000 mls @ 100 mls/hr 11/10/23 14:16 Dextrose 5% 1,000 Ml IVPB PRN PRN Hypoglycemia Protocol Insulin Aspart 3 - 6 units 11/10/23 17:00 11/10/23 16:29 Insulin Aspart (*Bkc) 100 Units/Ml SUB-Q Not Given TIDWM [facility] Protocol Insulin Aspart 1 - 3 units 11/10/23 21:00 11/10/23 20:22 Insulin Aspart (*Bkc) 100 Units/Ml SUB-Q 1 units HS [facility] Administration Protocol Insulin Glargine 30 units 11/11/23 09:00 Insulin Glargine (*Bkc) 100 Units/Ml SUB-Q QAM [facility] Levothyroxine Sodium 25 mcg 11/11/23 06:30 11/11/23 05:24 Levothyroxine Sodium 25 Mcg Tablet PO 25 mcg DAILY@0630 [facility] Administration Meloxicam 7.5 mg 11/11/23 08:00 Meloxicam 7.5 Mg Tablet PO DAILY@0800 [facility] Metformin HCl 1,000 mg 11/10/23 18:00 11/10/23 16:55 Metformin Hcl 500 Mg Tablet PO 1,000 mg QPM [facility] Administration Morphine Sulfate 2 mg 11/10/23 13:25 Morphine Sulfate (*Crx) 2 Mg/Ml Inj IV PUSH Q2H PRN Breakthrough Pain Rated 4-6 or NPO Naloxone HCl 0.1 mg 11/10/23 13:25 Naloxone Hcl 0.4 Mg/Ml Vial IV PUSH Q2M PRN Opiate Reversal Non-Formulary Medication 1,000 mcg 11/11/23 09:00 Mecobalamin (Vitamin B12) PO 12/11/23 08:59 DAILY [facility] Ondansetron HCl 4 mg 11/10/23 13:25 Ondansetron Inj 4 Mg/2 Ml Vial IV PUSH Q4H PRN Nausea And Vomiting Oxycodone HCl 5 mg 11/10/23 13:25 11/11/23 05:25 Oxycodone Hcl (*Crx) 5 Mg Tab Ir PO 5 mg Q4H [facility] Administration Oxycodone HCl 5 mg 11/10/23 13:25 Oxycodone Hcl (*Crx) 5 Mg Tab Ir PO Q4H PRN Pain Rated 7-10 Pantoprazole Sodium 40 mg 11/11/23 09:00 Pantoprazole 40 Mg Tablet PO QAM [facility] Polyethylene Glycol 17 gm 11/11/23 09:00 Polyethylene Glycol 3350 17 Gm Powd.Pack PO QAM [facility] Risperidone 4 mg 11/10/23 21:00 11/10/23 20:21 Risperidone 1 Mg Tablet PO 4 mg Q12HR [facility] Administration Senna/Docusate Sodium 2 tab 11/10/23 17:00 11/10/23 16:05 Senna/Docusate Sodium Tablet PO 2 tab BID [facility] Administration Simvastatin 20 mg 11/10/23 18:00 11/10/23 16:55 Simvastatin 20 Mg Tablet PO 20 mg QPM [facility] Administration Tamsulosin HCl 0.4 mg 11/10/23 21:00 11/10/23 20:22 Tamsulosin Hcl 0.4 Mg Capsule PO 0.4 mg HS [facility] Administration Radiology Results: ITS Impressions Knee X-Ray 11/10/23 12:10 IMPRESSION: 1. Recent left total knee arthroplasty. Labs Labs: Laboratory Results - last 24 hr 11/10/23 11/10/23 11/10/23 12:52 14:22 16:16 WBC RBC Hgb Hct MCV MCH MCHC RDW Plt Count MPV Immature Gran % (Auto) Neut % (Auto) Lymph % (Auto) [place] % (Auto) Eos % (Auto) Baso % (Auto) Lymph # (Auto) [place] # (Auto) Eos # (Auto) Baso # (Auto) Abs Immat Gran (auto) Absolute Neuts (auto) Absolute Nucleated RBC Nucleated RBC % Sodium Potassium Chloride Carbon Dioxide Anion Gap BUN Creatinine Estim Creat Clear Calc Estimated GFR Glucose POC Capillary Glucose 174 H 169 H 197 H Calcium Magnesium Total Bilirubin Direct Bilirubin AST ALT Alkaline Phosphatase Total Protein Albumin 11/10/23 11/11/23 20:13 06:01 WBC 8.4 RBC 3.00 L Hgb 9.1 L D Hct 28.3 L MCV 94.3 MCH 30.3 MCHC 32.2 RDW 12.9 Plt Count 297 MPV 8.2 Immature Gran % (Auto) 0.6 H Neut % (Auto) 67.9 Lymph % (Auto) 16.4 L [place] % (Auto) 14.5 H Eos % (Auto) 0.4 Baso % (Auto) 0.2 Lymph # (Auto) 1.38 [place] # (Auto) 1.2 H Eos # (Auto) 0.0 Baso # (Auto) 0.0 Abs Immat Gran (auto) 0.05 H Absolute Neuts (auto) 5.7 Absolute Nucleated RBC 0.000 Nucleated RBC % 0.0 Sodium 132 L Potassium 3.6 Chloride 98 Carbon Dioxide 25 Anion Gap 9 BUN 11 D Creatinine 0.70 Estim Creat Clear Calc 103 Estimated GFR > 60 Glucose 105 POC Capillary Glucose 229 H Calcium 8.2 L Magnesium 1.7 Total Bilirubin 0.6 Direct Bilirubin 0.0 AST 20 ALT 14 Alkaline Phosphatase 68 Total Protein 5.0 L Albumin 3.1 L
[2023-11-11 07:10] VITALS: BP 108/54; PULSE 82; RESP 20; TEMP 36.5; O2SAT 95
[2023-11-11 07:49] LABS: Glucose Point of Care 108 mg/dl (65-105)
[2023-11-11] MEDS: polyethylene glycoL 3350 17 GM POWD.PACK PO (08:57)
[2023-11-11] MEDS: SENNA/DOCUSATE SODIUM TABLET 2 TAB PO ×2 (08:57→17:06)
[2023-11-11] MEDS: buPROPion HCL XL (24 HR) 150 MG TABCR 300 MG BY MOUTH (08:57)
[2023-11-11] MEDS: EZETIMIBE 10 MG TABLET PO (08:57)
[2023-11-11] MEDS: PANTOPRAZOLE 40 MG TABLET PO (08:57)
[2023-11-11] MEDS: risperiDONE 1 MG TABLET 4 MG PO ×2 (08:57→20:31)
[2023-11-11] MEDS: allopurinoL 100 MG TABLET PO (08:58)
[2023-11-11] MEDS: MELOXICAM 7.5 MG TABLET PO (08:58)
[2023-11-11] MEDS: BENZTROPINE MESYLATE 1 MG TABLET PO ×2 (08:58→17:07)
[2023-11-11] MEDS: APIXABAN 2.5 MG TABLET PO ×2 (08:58→20:32)
[2023-11-11] MEDS: FAMOTIDINE 20 MG TABLET PO ×2 (08:58→20:32)
[2023-11-11] MEDS: INSULIN GLARGINE (*BKC) 100 UNITS/ML 24 UNITS SUB-Q (08:59)
[2023-11-11 09:46] LABS: Total Triiodothyronine (T3) 0.88 NG/ML (0.97-1.69)
[2023-11-11 10:08] VITALS: O2SAT 93
[2023-11-11 11:10] VITALS: BP 131/68; PULSE 81; RESP 18; TEMP 36.7; O2SAT 98
[2023-11-11 11:44] LABS: Glucose Point of Care 115 mg/dl (65-105)
[2023-11-11] MEDS: CEPHALEXIN 500 MG CAPSULE PO ×2 (12:24→17:11)
[2023-11-11] MEDS: CYANOCOBALAMIN 1,000 MCG TABLET 1000 MCG PO (12:24)
[2023-11-11] MEDS: buPROPion HCL XL (24 HR) 150 MG TABCR BY MOUTH (12:25)
--- NOTE | 2023-11-11 14:42 | WPDANESPN ---
Anes - Prog Note Post-Op Date/Time: 11/11/23 14:42 Cardiovascular status: normal Respiratory status: normal Airway patency: baseline Mental status: baseline Post-Op hydration status: normal Vital Signs: Last Vital Signs Temp 36.7 C 11/11/23 11:10 Pulse 81 11/11/23 11:10 Resp 18 11/11/23 11:10 BP 131/68 11/11/23 11:10 Pulse Ox 98 11/11/23 11:10 O2 Del Method Room Air 11/11/23 10:08 O2 Flow Rate 6 11/10/23 12:50 Pain Score (VAS): 06/06 I/O: Intake & Output 11/10/23 11/11/23 11/11/23 23:59 07:59 15:59 Intake Total 540 100 120 Output Total 600 Balance 540 -500 120 Laboratory Tests 11/11/23 06:01 11/11/23 06:01 11/10/23 11/10/23 11/11/23 16:16 20:13 06:01 WBC 8.4 RBC 3.00 L Hgb 9.1 L D Hct 28.3 L MCV 94.3 MCH 30.3 MCHC 32.2 RDW 12.9 Plt Count 297 MPV 8.2 Immature Gran % (Auto) 0.6 H Neut % (Auto) 67.9 Lymph % (Auto) 16.4 L [place] % (Auto) 14.5 H Eos % (Auto) 0.4 Baso % (Auto) 0.2 Lymph # (Auto) 1.38 [place] # (Auto) 1.2 H Eos # (Auto) 0.0 Baso # (Auto) 0.0 Abs Immat Gran (auto) 0.05 H Absolute Neuts (auto) 5.7 Absolute Nucleated RBC 0.000 Nucleated RBC % 0.0 Sodium 132 L Potassium 3.6 Chloride 98 Carbon Dioxide 25 Anion Gap 9 BUN 11 D Creatinine 0.70 Estim Creat Clear Calc 103 Estimated GFR > 60 Glucose 105 POC Capillary Glucose 197 H 229 H Calcium 8.2 L Magnesium 1.7 Total Bilirubin 0.6 Direct Bilirubin 0.0 AST 20 ALT 14 Alkaline Phosphatase 68 Total Protein 5.0 L Albumin 3.1 L TSH (Reflex) 4.360 Free T4 1.30 Total T3 0.88 L 11/11/23 11/11/23 07:44 11:23 WBC RBC Hgb Hct MCV MCH MCHC RDW Plt Count MPV Immature Gran % (Auto) Neut % (Auto) Lymph % (Auto) [place] % (Auto) Eos % (Auto) Baso % (Auto) Lymph # (Auto) [place] # (Auto) Eos # (Auto) Baso # (Auto) Abs Immat Gran (auto) Absolute Neuts (auto) Absolute Nucleated RBC Nucleated RBC % Sodium Potassium Chloride Carbon Dioxide Anion Gap BUN Creatinine Estim Creat Clear Calc Estimated GFR Glucose POC Capillary Glucose 108 H 115 H Calcium Magnesium Total Bilirubin Direct Bilirubin AST ALT Alkaline Phosphatase Total Protein Albumin TSH (Reflex) Free T4 Total T3 Post-procedural complaints: none Patient Feedback: Patient satisfied with anesthetic care. Other Findings: resting quietly
[2023-11-11 16:00] VITALS: BP 114/57; PULSE 95; RESP 20; TEMP 36.8; O2SAT 95
[2023-11-11 16:39] LABS: Glucose Point of Care 114 mg/dl (65-105)
[2023-11-11] MEDS: metFORMIN HCL 500 MG TABLET 1000 MG PO (17:10)
[2023-11-11] MEDS: SIMVASTATIN 20 MG TABLET PO (17:10)
[2023-11-11] MEDS: TAMSULOSIN HCL 0.4 MG CAPSULE PO (20:32)
--- NOTE | 2023-11-11 20:44 | P.PNIM_ITS ---
Progress Note: A&P Assessment and Plan (1) Primary osteoarthritis of left knee: Code(s): M17.12 - Unilateral primary osteoarthritis, left knee Status: Acute Assessment and Plan: Postoperative day 1, status post revision total knee arthroplasty. Patient recovering as expected. Wound care, pain control, and DVT prophylaxis deferred to Dr. Hinton. 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 Continue sliding scale insulin, Accu-Cheks, and hypoglycemic protocol. (3) Hypothyroidism: Code(s): E03.9 - Hypothyroidism, unspecified Status: Acute Assessment and Plan: TSH normal. Continue levothyroxine. (4) Dyslipidemia: Code(s): E78.5 - Hyperlipidemia, unspecified Status: Acute Assessment and Plan: Stable. Continue ezetimibe and simvastatin. (5) Benign prostatic hyperplasia: Code(s): N40.0 - Benign prostatic hyperplasia without lower urinary tract symptoms Status: Acute Assessment and Plan: No current issues. Continue tamsulosin and bladder scan p.r.n. (6) Schizophrenia: Code(s): F20.9 - Schizophrenia, unspecified Status: Acute Assessment and Plan: Mood stable. Continue risperidone and benztropine. (7) Gastroesophageal reflux disease: Code(s): K21.9 - Gastro-esophageal reflux disease without esophagitis Status: Acute Assessment and Plan: Continue PPI. (8) Gout: Code(s): M10.9 - Gout, unspecified Status: Acute Assessment and Plan: No current issues, continue allopurinol. Subjective Date/time seen: 11/11/23 20:44 Interval history: 63yo male with osteoarthritis, insulin-dependent diabetes, hypothyroidism, dyslipidemia, gastroesophageal reflux disease, benign prostatic hyperplasia, and schizophrenia whom the hospitalist service has been consulted for help managing his medical problems postoperatively. Assuming care. Chart reviewed. No issues overnight. He slept well. No chest pain. No shortness of breath. Pain is well tolerated. Exam Narrative: AF 98.3 114/57 95 20 95% ra Gen - NARD Chest - CTA bilaterally, nml RR CV - RRR S1/S2 Abd - Soft, NT/ND, Positive BS Ext - No pedal edema. Left knee dressing is clean, dry and intact. 2+ PT pulses bilaterally Psych - Nml mood and affect Skin - Warm and dry Objective Data Vital Signs Vital Signs: Vital Signs - 24 hr 11/10/23 23:00 11/11/23 03:07 11/11/23 07:10 Temperature 97.7 F 98.1 F 97.7 F Pulse Rate 76 80 82 Respiratory Rate 18 18 20 Blood Pressure 136/67 139/64 108/54 L Pulse Oximetry 98 98 95 Oxygen Delivery 11/11/23 10:08 11/11/23 11:10 11/11/23 16:00 Temperature 98.1 F 98.3 F Pulse Rate 81 95 Respiratory Rate 18 20 Blood Pressure 131/68 114/57 L Pulse Oximetry 93 98 95 Oxygen Delivery Room Air Intake/Output Intake/Output: Intake & Output 11/08/23 11/09/23 11/10/23 11/11/23 23:59 23:59 23:59 23:59 Intake Total 940 740 Output Total 600 Balance 940 140 Meds/Results Medications: Active Medications Generic Name Dose Route Start Last Admin Trade Name Freq PRN Reason Stop Dose Admin Acetaminophen 650 mg 11/10/23 14:00 11/11/23 17:11 Acetaminophen 325 Mg Tablet PO 650 mg Q4H KATIUSKA Administration Allopurinol 100 mg 11/11/23 09:00 11/11/23 08:58 Allopurinol 100 Mg Tablet PO 100 mg DAILY [facility] Administration Apixaban 2.5 mg 11/11/23 09:00 11/11/23 20:32 Apixaban 2.5 Mg Tablet PO 11/22/23 21:01 2.5 mg Q12HR [facility] Administration Benztropine Mesylate 1 mg 11/10/23 17:00 11/11/23 17:07 Benztropine Mesylate 1 Mg Tablet PO 1 mg BID [facility]KA Administration Bupropion HCl 300 mg 11/10/23 09:00 11/11/23 08:57 Bupropion Hcl Xl (24 Hr) 150 Mg Tabcr BY MOUTH 300 mg QAM [facility]KA Administration Bupropion HCl 150 mg 11/11/23 12:00 11/11/23 12:25 Bupropion Hcl Xl (24 Hr) 150 Mg Tabcr BY MOUTH 150 mg DAILY@1200 [facility]KA Administration Cephalexin HCl 500 mg 11/11/23 12:00 11/11/23 17:11 Cephalexin 500 Mg Capsule PO 500 mg Q6HR [facility] Administration Cyanocobalamin 1,000 mcg 11/11/23 09:35 11/11/23 12:24 Cyanocobalamin 1,000 Mcg Tablet PO 12/12/23 09:34 1,000 mcg DAILY [facility] Administration Dextrose 12.5 gm 11/10/23 14:16 Dextrose 50% 25 Gm/50 Ml Syringe IV PUSH PRN PRN Hypoglycemia Protocol Diphenhydramine HCl 25 mg 11/10/23 13:25 Diphenhydramine Hcl Inj 50 Mg/Ml Vial IV PUSH Q6H PRN Itching Ezetimibe 10 mg 11/11/23 09:00 11/11/23 08:57 Ezetimibe 10 Mg Tablet PO 10 mg DAILY [facility] Administration Famotidine 20 mg 11/10/23 21:00 11/11/23 20:32 Famotidine 20 Mg Tablet PO 20 mg Q12HR [facility] Administration Glucagon 1 mg 11/10/23 14:16 Glucagon For Inj 1 Mg Vial IM PRN PRN Hypoglycemia Protocol Glucose 15 gm 11/10/23 14:16 Glucose Oral Gel 15 Gm Of Glucse In 37.5 Gm Tube PO PRN PRN Hypoglycemia Protocol Dextrose 1,000 mls @ 100 mls/hr 11/10/23 14:16 Dextrose 5% 1,000 Ml IVPB PRN PRN Hypoglycemia Protocol Insulin Aspart 3 - 6 units 11/10/23 17:00 11/11/23 18:00 Insulin Aspart (*Bkc) 100 Units/Ml SUB-Q Not Given TIDWM [facility] Protocol Insulin Aspart 1 - 3 units 11/10/23 21:00 11/11/23 20:34 Insulin Aspart (*Bkc) 100 Units/Ml SUB-Q Not Given HS [facility] Protocol Insulin Glargine 24 units 11/11/23 09:00 11/11/23 08:59 Insulin Glargine (*Bkc) 100 Units/Ml SUB-Q 24 units QAM [facility]KA Administration Levothyroxine Sodium 25 mcg 11/11/23 06:30 11/11/23 05:24 Levothyroxine Sodium 25 Mcg Tablet PO 25 mcg DAILY@0630 [facility] Administration Meloxicam 7.5 mg 11/11/23 08:00 11/11/23 08:58 Meloxicam 7.5 Mg Tablet PO 7.5 mg DAILY@0800 [facility] Administration Metformin HCl 1,000 mg 11/10/23 18:00 11/11/23 17:10 Metformin Hcl 500 Mg Tablet PO 1,000 mg QPM [facility] Administration Morphine Sulfate 2 mg 11/10/23 13:25 Morphine Sulfate (*Crx) 2 Mg/Ml Inj IV PUSH Q2H PRN Breakthrough Pain Rated 4-6 or NPO Naloxone HCl 0.1 mg 11/10/23 13:25 Naloxone Hcl 0.4 Mg/Ml Vial IV PUSH Q2M PRN Opiate Reversal Non-Formulary Medication 1,000 mcg 11/11/23 09:00 11/11/23 17:10 Mecobalamin (Vitamin B12) PO 12/11/23 08:59 1,000 mcg DAILY [facility] Administration Ondansetron HCl 4 mg 11/10/23 13:25 Ondansetron Inj 4 Mg/2 Ml Vial IV PUSH Q4H PRN Nausea And Vomiting Oxycodone HCl 5 mg 11/10/23 13:25 11/11/23 20:32 Oxycodone Hcl (*Crx) 5 Mg Tab Ir PO 5 mg Q4H [facility] Administration Oxycodone HCl 5 mg 11/10/23 13:25 11/11/23 08:56 Oxycodone Hcl (*Crx) 5 Mg Tab Ir PO 5 mg Q4H PRN Administration Pain Rated 7-10 Pantoprazole Sodium 40 mg 11/11/23 09:00 11/11/23 08:57 Pantoprazole 40 Mg Tablet PO 40 mg QAM [facility] Administration Polyethylene Glycol 17 gm 11/11/23 09:00 11/11/23 08:57 Polyethylene Glycol 3350 17 Gm Powd.Pack PO 17 gm QAM [facility]KA Administration Risperidone 4 mg 11/10/23 21:00 11/11/23 20:31 Risperidone 1 Mg Tablet PO 4 mg Q12HR [facility] Administration Senna/Docusate Sodium 2 tab 11/10/23 17:00 11/11/23 17:06 Senna/Docusate Sodium Tablet PO 2 tab BID [facility] Administration Simvastatin 20 mg 11/10/23 18:00 11/11/23 17:10 Simvastatin 20 Mg Tablet PO 20 mg QPM [facility] Administration Tamsulosin HCl 0.4 mg 11/10/23 21:00 11/11/23 20:32 Tamsulosin Hcl 0.4 Mg Capsule PO 0.4 mg HS [facility]KA Administration Radiology Results: ITS Impressions Knee X-Ray 11/10/23 12:10 IMPRESSION: 1. Recent left total knee arthroplasty. Labs Labs: Laboratory Results - last 24 hr 11/10/23 11/11/23 11/11/23 20:13 06:01 07:44 WBC 8.4 RBC 3.00 L Hgb 9.1 L D Hct 28.3 L MCV 94.3 MCH 30.3 MCHC 32.2 RDW 12.9 Plt Count 297 MPV 8.2 Immature Gran % (Auto) 0.6 H Neut % (Auto) 67.9 Lymph % (Auto) 16.4 L [place] % (Auto) 14.5 H Eos % (Auto) 0.4 Baso % (Auto) 0.2 Lymph # (Auto) 1.38 [place] # (Auto) 1.2 H Eos # (Auto) 0.0 Baso # (Auto) 0.0 Abs Immat Gran (auto) 0.05 H Absolute Neuts (auto) 5.7 Absolute Nucleated RBC 0.000 Nucleated RBC % 0.0 Sodium 132 L Potassium 3.6 Chloride 98 Carbon Dioxide 25 Anion Gap 9 BUN 11 D Creatinine 0.70 Estim Creat Clear Calc 103 Estimated GFR > 60 Glucose 105 POC Capillary Glucose 229 H 108 H Calcium 8.2 L Magnesium 1.7 Total Bilirubin 0.6 Direct Bilirubin 0.0 AST 20 ALT 14 Alkaline Phosphatase 68 Total Protein 5.0 L Albumin 3.1 L TSH (Reflex) 4.360 Free T4 1.30 Total T3 0.88 L 11/11/23 11/11/23 11:23 16:27 WBC RBC Hgb Hct MCV MCH MCHC RDW Plt Count MPV Immature Gran % (Auto) Neut % (Auto) Lymph % (Auto) [place] % (Auto) Eos % (Auto) Baso % (Auto) Lymph # (Auto) [place] # (Auto) Eos # (Auto) Baso # (Auto) Abs Immat Gran (auto) Absolute Neuts (auto) Absolute Nucleated RBC Nucleated RBC % Sodium Potassium Chloride Carbon Dioxide Anion Gap BUN Creatinine Estim Creat Clear Calc Estimated GFR Glucose POC Capillary Glucose 115 H 114 H Calcium Magnesium Total Bilirubin Direct Bilirubin AST ALT Alkaline Phosphatase Total Protein Albumin TSH (Reflex) Free T4 Total T3
[2023-11-11 21:31] LABS: Glucose Point of Care 131 mg/dl (65-105)
[2023-11-11 21:59] VITALS: BP 141/68; PULSE 92; RESP 18; TEMP 37.1; O2SAT 96
[2023-11-12] MEDS: CEPHALEXIN 500 MG CAPSULE PO ×3 (01:09→11:36)
[2023-11-12] MEDS: oxyCODONE HCL (*CRX) 5 MG TAB IR PO ×4 (01:09→16:23)
[2023-11-12] MEDS: ACETAMINOPHEN 325 MG TABLET 650 MG PO ×3 (01:14→11:36)
[2023-11-12 05:17] LABS: Glucose Point of Care 87 mg/dl (65-105)
[2023-11-12 05:35] VITALS: BP 139/69; PULSE 89; RESP 18; TEMP 36.6; O2SAT 93
[2023-11-12] MEDS: LEVOTHYROXINE SODIUM 25 MCG TABLET PO (05:38)
--- NOTE | 2023-11-12 06:48 | PM.PNORT ---
Subjective Subjective Date/Time Seen: 11/12/23 06:48 Interval history: POD 2 pt is alert, AVSS dressing is dry and intact, pain is well controlled, pt has been up walking with PT, morning labs are not yet done. CC is working on rehab placement- pt will be transferred when accepted to rehab Objective Data Vital Signs Vital Signs: Vital Signs - 24 hr 11/11/23 07:10 11/11/23 10:08 11/11/23 11:10 Temperature 97.7 F 98.1 F Pulse Rate 82 81 Respiratory Rate 20 18 Blood Pressure 108/54 L 131/68 Pulse Oximetry 95 93 98 Oxygen Delivery Room Air 11/11/23 16:00 11/11/23 21:59 11/11/23 20:00 Temperature 98.3 F 98.8 F Pulse Rate 95 92 Respiratory Rate 20 18 Blood Pressure 114/57 L 141/68 H Pulse Oximetry 95 96 Oxygen Delivery Room Air 11/12/23 05:35 Temperature 97.9 F Pulse Rate 89 Respiratory Rate 18 Blood Pressure 139/69 Pulse Oximetry 93 Oxygen Delivery Intake/Output Intake/Output: Intake & Output 11/09/23 11/10/23 11/11/23 11/12/23 23:59 23:59 23:59 23:59 Intake Total 940 740 260 Output Total 600 500 Balance 940 140 -240 Meds/Results Medications: Active Medications Generic Name Dose Route Start Last Admin Trade Name Rafaq PRN Reason Stop Dose Admin Acetaminophen 650 mg 11/10/23 14:00 11/12/23 05:37 Acetaminophen 325 Mg Tablet PO 650 mg Q4H KATIUSKA Administration Allopurinol 100 mg 11/11/23 09:00 11/11/23 08:58 Allopurinol 100 Mg Tablet PO 100 mg DAILY KATIUSKA Administration Apixaban 2.5 mg 11/11/23 09:00 11/11/23 20:32 Apixaban 2.5 Mg Tablet PO 11/22/23 21:01 2.5 mg Q12HR KATIUSKA Administration Benztropine Mesylate 1 mg 11/10/23 17:00 11/11/23 17:07 Benztropine Mesylate 1 Mg Tablet PO 1 mg BID KATIUSKA Administration Bupropion HCl 300 mg 11/10/23 09:00 11/11/23 08:57 Bupropion Hcl Xl (24 Hr) 150 Mg Tabcr BY MOUTH 300 mg QAM KATIUSKA Administration Bupropion HCl 150 mg 11/11/23 12:00 11/11/23 12:25 Bupropion Hcl Xl (24 Hr) 150 Mg Tabcr BY MOUTH 150 mg DAILY@1200 KATIUSKA Administration Cephalexin HCl 500 mg 11/11/23 12:00 11/12/23 05:38 Cephalexin 500 Mg Capsule PO 500 mg Q6HR KATIUSKA Administration Cyanocobalamin 1,000 mcg 11/11/23 09:35 11/11/23 12:24 Cyanocobalamin 1,000 Mcg Tablet PO 12/12/23 09:34 1,000 mcg DAILY KATIUSKA Administration Dextrose 12.5 gm 11/10/23 14:16 Dextrose 50% 25 Gm/50 Ml Syringe IV PUSH PRN PRN Hypoglycemia Protocol Diphenhydramine HCl 25 mg 11/10/23 13:25 Diphenhydramine Hcl Inj 50 Mg/Ml Vial IV PUSH Q6H PRN Itching Ezetimibe 10 mg 11/11/23 09:00 11/11/23 08:57 Ezetimibe 10 Mg Tablet PO 10 mg DAILY KATIUSKA Administration Famotidine 20 mg 11/10/23 21:00 11/11/23 20:32 Famotidine 20 Mg Tablet PO 20 mg Q12HR KATIUSKA Administration Glucagon 1 mg 11/10/23 14:16 Glucagon For Inj 1 Mg Vial IM PRN PRN Hypoglycemia Protocol Glucose 15 gm 11/10/23 14:16 Glucose Oral Gel 15 Gm Of Glucse In 37.5 Gm Tube PO PRN PRN Hypoglycemia Protocol Dextrose 1,000 mls @ 100 mls/hr 11/10/23 14:16 Dextrose 5% 1,000 Ml IVPB PRN PRN Hypoglycemia Protocol Insulin Aspart 3 - 6 units 11/10/23 17:00 11/11/23 18:00 Insulin Aspart (*Bkc) 100 Units/Ml SUB-Q Not Given TIDWM [facility] Protocol Insulin Aspart 1 - 3 units 11/10/23 21:00 11/11/23 20:34 Insulin Aspart (*Bkc) 100 Units/Ml SUB-Q Not Given HS [facility] Protocol Insulin Glargine 24 units 11/11/23 09:00 11/11/23 08:59 Insulin Glargine (*Bkc) 100 Units/Ml SUB-Q 24 units QAM KATIUSKA Administration Levothyroxine Sodium 25 mcg 11/11/23 06:30 11/12/23 05:38 Levothyroxine Sodium 25 Mcg Tablet PO 25 mcg DAILY@0630 KATIUSKA Administration Meloxicam 7.5 mg 11/11/23 08:00 11/11/23 08:58 Meloxicam 7.5 Mg Tablet PO 7.5 mg DAILY@0800 KATIUSKA Administration Metformin HCl 1,000 mg 11/10/23 18:00 11/11/23 17:10 Metformin Hcl 500 Mg Tablet PO 1,000 mg QPM KATIUSKA Administration Morphine Sulfate 2 mg 11/10/23 13:25 Morphine Sulfate (*Crx) 2 Mg/Ml Inj IV PUSH Q2H PRN Breakthrough Pain Rated 4-6 or NPO Naloxone HCl 0.1 mg 11/10/23 13:25 Naloxone Hcl 0.4 Mg/Ml Vial IV PUSH Q2M PRN Opiate Reversal Non-Formulary Medication 1,000 mcg 11/11/23 09:00 11/11/23 17:10 Mecobalamin (Vitamin B12) PO 12/11/23 08:59 1,000 mcg DAILY KATIUSKA Administration Ondansetron HCl 4 mg 11/10/23 13:25 Ondansetron Inj 4 Mg/2 Ml Vial IV PUSH Q4H PRN Nausea And Vomiting Oxycodone HCl 5 mg 11/10/23 13:25 11/12/23 05:38 Oxycodone Hcl (*Crx) 5 Mg Tab Ir PO 5 mg Q4H KATIUSKA Administration Oxycodone HCl 5 mg 11/10/23 13:25 11/11/23 08:56 Oxycodone Hcl (*Crx) 5 Mg Tab Ir PO 5 mg Q4H PRN Administration Pain Rated 7-10 Pantoprazole Sodium 40 mg 11/11/23 09:00 11/11/23 08:57 Pantoprazole 40 Mg Tablet PO 40 mg QAM KATIUSKA Administration Polyethylene Glycol 17 gm 11/11/23 09:00 11/11/23 08:57 Polyethylene Glycol 3350 17 Gm Powd.Pack PO 17 gm QAM KATIUSKA Administration Risperidone 4 mg 11/10/23 21:00 11/11/23 20:31 Risperidone 1 Mg Tablet PO 4 mg Q12HR KATIUSKA Administration Senna/Docusate Sodium 2 tab 11/10/23 17:00 11/11/23 17:06 Senna/Docusate Sodium Tablet PO 2 tab BID KATIUSKA Administration Simvastatin 20 mg 11/10/23 18:00 11/11/23 17:10 Simvastatin 20 Mg Tablet PO 20 mg QPM KATIUSKA Administration Tamsulosin HCl 0.4 mg 11/10/23 21:00 11/11/23 20:32 Tamsulosin Hcl 0.4 Mg Capsule PO 0.4 mg HS KATIUSKA Administration Radiology Results: ITS Impressions Knee X-Ray 11/10/23 12:10 IMPRESSION: 1. Recent left total knee arthroplasty. Labs Labs: Laboratory Results - last 24 hr 11/11/23 11/11/23 11/11/23 06:01 07:44 11:23 POC Capillary Glucose 108 H 115 H TSH (Reflex) 4.360 Free T4 1.30 Total T3 0.88 L 11/11/23 11/11/23 11/12/23 16:27 20:34 05:12 POC Capillary Glucose 114 H 131 H 87 TSH (Reflex) Free T4 Total T3
[2023-11-12 07:34] LABS: Glucose Point of Care 98 mg/dl (65-105)
[2023-11-12 08:03] LABS: Hematocrit 27.5 % (42.0-52.0); Hemoglobin 9.3 g/dL (14.0-18.0); Mean Corpuscular HGB Conc 33.8 g/dl (32-36); Mean Corpuscular Hemoglobin 31.5 pg (26-34); Mean Corpuscular Volume 93.2 fl (80-100); Platelet Count Result 269 k/mm3 (150-375); Red Blood Count 2.95 M/mm3 (4.6-6.20); Red Cell Distribution Width 13.2 % (11.5-14.5); White Blood Count 5.5 K/mm3 (4.5-10.0)
[2023-11-12 08:11] LABS: Anion Gap 7 mmol/L (4-12); Blood Urea Nitrogen 11 mg/dL (9-20); Calcium 8.4 mg/dL (8.4-10.2); Carbon Dioxide 27 mmol/L (22-30); Chloride 98 mmol/L (98-107); Estimated CRCL calculation 123 ml/min; Estimated Glomerular Filt Rate > 60; Glucose 116 mg/dL (65-110); Potassium 3.6 mmol/L (3.4-5.0); Sodium 132 mmol/L (137-145)
[2023-11-12] MEDS: SENNA/DOCUSATE SODIUM TABLET 2 TAB PO (08:44)
[2023-11-12] MEDS: EZETIMIBE 10 MG TABLET PO (08:45)
[2023-11-12] MEDS: INSULIN GLARGINE (*BKC) 100 UNITS/ML 24 UNITS SUB-Q (08:45)
[2023-11-12] MEDS: risperiDONE 1 MG TABLET 4 MG PO (08:45)
[2023-11-12] MEDS: APIXABAN 2.5 MG TABLET PO (08:45)
[2023-11-12] MEDS: MELOXICAM 7.5 MG TABLET PO (08:45)
[2023-11-12] MEDS: buPROPion HCL XL (24 HR) 150 MG TABCR 300 MG BY MOUTH (08:45)
[2023-11-12] MEDS: PANTOPRAZOLE 40 MG TABLET PO (08:45)
[2023-11-12] MEDS: allopurinoL 100 MG TABLET PO (08:46)
[2023-11-12] MEDS: polyethylene glycoL 3350 17 GM POWD.PACK PO (08:46)
[2023-11-12] MEDS: BENZTROPINE MESYLATE 1 MG TABLET PO (08:46)
[2023-11-12] MEDS: FAMOTIDINE 20 MG TABLET PO (08:46)
--- NOTE | 2023-11-12 10:59 | PCOTNOTE ---
Therapist attempted to see Patient for A.M. treatment session at this time. Patient declined all activities until his ex- is sitting in the chair next to him. Patient educated on the importance of practicing increased movement and self abilities. Therapist educated Patient on teaching of some additional AE that can help him with task completion. Patient aggravated, stating, I will do nothing, until she arrives . Will check back at a later time.
[2023-11-12] MEDS: buPROPion HCL XL (24 HR) 150 MG TABCR BY MOUTH (11:36)
--- NOTE | 2023-11-12 11:36 | P.DS_ITS ---
DS: Admitting Diagnosis Discharge Date 11/11 Admitting Diagnosis left knee DJD DS: Discharge Diagnosis Discharge Diagnosis (1) History of total left knee replacement: Code(s): Z96.652 - Presence of left artificial knee joint Status: Acute DS: Summary Hospital Course Hospital Course: 63-year-old male who underwent left total knee arthroplasty on 11/09. Underwent the procedure without complications. Postoperatively he has been afebrile vital signs are stable. He is weight-bearing as tolerated. He is on Eliquis for 2 weeks for DVT prophylaxis. He is also on meloxicam 7.5 mg daily while he is on the Eliquis. This pain is well controlled with scheduled Tylenol every 4 hours as well as oxycodone 5 mg. Patient is going to be transferred to rehab facility. He lives and a half way of it was felt that he would not be a safe situation for him to go home at this point. Patient has been accepted to rehab facility and will continue to stay there until he is improving. He is on Keflex 500 mg q.6 hours for 2 weeks. He had MEHDI on his nasal swab. Patient's dressing has been dry intact postoperatively. He has been neurovascularly intact well. Patient will follow-up in the office week and a half Time Spent with Patient Time attestation: Total time spent providing and/or coordinating discharge services: DS: Data Data Completed and Pending Labs on day of discharge: Labs from last 24 hours 11/12/23 11/12/23 11/12/23 07:57 07:20 05:12 WBC 5.5 RBC 2.95 L Hgb 9.3 L Hct 27.5 L MCV 93.2 MCH 31.5 MCHC 33.8 RDW 13.2 Plt Count 269 MPV 8.0 Sodium 132 L Potassium 3.6 Chloride 98 Carbon Dioxide 27 Anion Gap 7 BUN 11 Creatinine 0.60 L Estim Creat Clear Calc 123 Estimated GFR > 60 Glucose 116 H POC Capillary Glucose 98 87 Calcium 8.4 11/11/23 11/11/23 11/11/23 20:34 16:27 11:23 WBC RBC Hgb Hct MCV MCH MCHC RDW Plt Count MPV Sodium Potassium Chloride Carbon Dioxide Anion Gap BUN Creatinine Estim Creat Clear Calc Estimated GFR Glucose POC Capillary Glucose 131 H 114 H 115 H Calcium Discharge Plan Discharge Attending physician on discharge: Hitesh Lim Consulting providers: Héctor Weaver Discharging Clinician: Abhi Ribeiro Patient Disposition: Inpatient Rehab Facility Activity: may shower Diet: as tolerated Wound Care Instructions: follow printed instructions Discharge Instructions: HITESH LIM M.D [facility] [address] [place] [address] POST-OPERATIVE DISCHARGE INSTRUCTIONS TOTAL KNEE ARTHROPLASTY 1. When resting, do not rest in the chair.When resting, lie on your back, with back flat on the couch or bed, with leg elevated above heart to minimize swelling. You may put a pillow under your head. . Significant swelling could indicate a blood clot and if this occurs call the office (or go to the ER) to have a venous ultrasound. Therefore, do not rest in a chair. 2. At least five times a day spend several minutes stretching your knee into flexion while sitting in the chair and also stretching your knee out straight The abilities to bend your knee fully and straighten your knee fully are two most important knee functions to focus on during your recovery. 3. It is ok to sit in chair to eat, use the toilet and receive a guest and to do your stretching exercises, but, sitting in a chair will cause your leg to swell. Therefore, avoid additional time sitting in the chair. and don't rest in the chair. 4. Wound Care: Nursing will give you an additional Mepilex dressing at the time of discharge. Patient to remove the dressing and apply a new Mepilex dressing at home 7 days after surgery and leave the dressing on until seen in office. It is normal to see a small amount of blood on the silver pad of the Mepilex dressing. Its designed to hold small spots of blood. However, if the blood reaches the edge of the pad up to the boarder of the clear membrane that surrounds the pad, the pad is saturated and the Mepilex dressing should be removed and a new Mepilex dressing should be applied. 5. May shower with a Mepilex dressing in place.The water will run off the dressing. 6. Unless you are told otherwise, you may put full weight on your operated leg. Use a walker for balance and practice walking as normally as you can, ideally for a few minutes every hour while you are awake. 7. I would advise against putting ice packs on your knee incision. Ice constricts blood flow which can impar healing of the knee incision. IMPORTANT: Remember not to sit in the chair for more than 30 minutes at a time. As a rule, during the first 14 days after surgery, only sit in the chair to work on the chair knee bending stretch exercise, for meals or for use of the restroom. Sitting in the chair promotes significant swelling in the knee and leg which will make your knee stiff and more painful and which simulates having a blood clot in the veins of the leg. If this type of significant diffuse swelling occurs, an ultrasound at the hospital will be necessary to rule out a blood clot. Be up walking around with the walker for a few minutes every hour while awake and then rest laying on your back on the couch or in bed with your leg elevated on cushions or pillows. Do not rest in the chair. Patient Instructions: Apixaban (By mouth) Stand Alone Forms: General Discharge Information Follow-up/Referrals: Hitesh Lim MD [Physician] - Keep Reg. Scheduled Appt. Discharge Medications: New oxycodone 5 mg Tablet 5 mg PO Q4H Qty: 40 0RF acetaminophen 325 mg Tablet 650 mg PO Q4H Qty: 90 0RF Eliquis 2.5 mg Tablet 2.5 mg PO Q12HR Qty: 26 0RF cephalexin 500 mg Capsule 500 mg PO Q6HR Qty: 50 0RF sennosides-docusate sodium [Senokot-S] 8.6-50 mg Tablet 2 tab-cap PO BID Qty: 60 0RF polyethylene glycol 3350 [Miralax] 17 gram Powder In Packet 17 g PO QAM Qty: 30 0RF meloxicam 7.5 mg tablet 7.5 mg PO DAILY Qty: 60 0RF Continued benztropine 1 mg tablet 1 mg PO BID risperidone 4 mg tablet 4 mg PO BID omeprazole 20 mg capsule,delayed release(DR/EC) 20 mg PO DAILY simvastatin 20 mg tablet 20 mg PO QPM bupropion HCl 150 mg tablet extended release 24 hr See Rx Instructions .ROUTE .COMPLEX Rx Instructions: 300mg in am and 150mg at noon allopurinol 100 mg tablet 100 mg PO DAILY ezetimibe [Zetia] 10 mg tablet 10 mg PO DAILY mecobalamin (vitamin B12) 1,000 mcg tablet,chewable 1,000 mcg PO DAILY tamsulosin 0.4 mg capsule 0.4 mg PO HS metformin 500 mg tablet 1,000 mg PO QPM levothyroxine 25 mcg tablet 25 mcg PO QAM insulin glargine [Lantus Solostar U-100 Insulin] 100 unit/mL (3 mL) insulin pen 30 unit SUBCUT QAM Discontinued vitamin E (dl, acetate) 400 unit capsule 400 mg PO DAILY Adult Low Dose Aspirin 81 mg Tablet 81 mg PO DAILY acetaminophen 500 mg Tablet 1,000 mg PO Q8-10H PRN (Reason: Pain) naproxen 500 mg tablet 500 mg PO BID PRN (Reason: Pain) lidocaine 5 % adhesive patch,medicated 1 patch topical BID PRN (Reason: Pain) pen needle, diabetic [Easy Touch] 31 gauge x 5/16 needle See Rx Instructions .ROUTE .COMPLEX Qty: 100 0RF Dose Instruction: USE WITH INSULIN INJECTIONS DAILY Rx Instructions: USE WITH INSULIN INJECTIONS DAILY mupirocin 2 % ointment 1 applic topical BID Qty: 22 0RF Rx Instructions: apply to both nares (nostrils) twice daily starting 11-05-23 No Action (DME) OneTouch Ultra Blue Test Strip Strip See Rx Instructions .ROUTE .MEDSUPPLY Qty: 300 3RF Rx Instructions: Use to check BS 3 times daily (DME) lancets [OneTouch Delica Plus Lancet] 33 gauge misc See Rx Instructions .ROUTE .MEDSUPPLY Qty: 300 3RF Rx Instructions: Use to check BS 3 times daily Date of admission: 11/10/23 07:00 Primary Care Provider: Carlin Barajas Admitting Provider: Hitesh Lim Attending physician on admission: Hitesh Lim Condition: Stable
[2023-11-12 11:39] LABS: Glucose Point of Care 171 mg/dl (65-105)
--- NOTE | 2023-11-12 13:37 | PM.IMPN ---
Progress Note: A&P Assessment and Plan (1) Primary osteoarthritis of left knee: Code(s): M17.12 - Unilateral primary osteoarthritis, left knee Status: Acute Assessment and Plan: Postoperative day 2, status post revision total knee arthroplasty. Patient recovering as expected. hgb stable. Wound care, pain control, and DVT prophylaxis deferred to Dr. Hinton. (2) Insulin dependent type 2 diabetes mellitus: Code(s): E11.9 - Type 2 diabetes mellitus without complications; Z79.4 - senior living (current) use of insulin Status: Acute Assessment and Plan: Continue basal insulin; recent hemoglobin A1c was 5.6%. Continue sliding scale insulin, Accu-Cheks, and hypoglycemic protocol. (3) Hypothyroidism: Code(s): E03.9 - Hypothyroidism, unspecified Status: Acute Assessment and Plan: TSH normal. Continue levothyroxine. (4) Dyslipidemia: Code(s): E78.5 - Hyperlipidemia, unspecified Status: Acute Assessment and Plan: Stable. Continue ezetimibe and simvastatin. (5) Benign prostatic hyperplasia: Code(s): N40.0 - Benign prostatic hyperplasia without lower urinary tract symptoms Status: Acute Assessment and Plan: No current issues. Continue tamsulosin and bladder scan p.r.n. (6) Schizophrenia: Code(s): F20.9 - Schizophrenia, unspecified Status: Acute Assessment and Plan: Mood stable. Continue risperidone and benztropine. (7) Gastroesophageal reflux disease: Code(s): K21.9 - Gastro-esophageal reflux disease without esophagitis Status: Acute Assessment and Plan: Continue PPI. (8) Gout: Code(s): M10.9 - Gout, unspecified Status: Acute Assessment and Plan: No current issues, continue allopurinol. Subjective Date/time seen: 11/12/23 13:37 Interval history: 63yo male with osteoarthritis, insulin-dependent diabetes, hypothyroidism, dyslipidemia, gastroesophageal reflux disease, benign prostatic hyperplasia, and schizophrenia whom the hospitalist service has been consulted for help managing his medical problems postoperatively. No problems overnight. Pain controlled. Exam Narrative: AF 97.9 139/69 89 18 93% ra Gen - NARD Chest - CTA bilaterally, nml RR CV - RRR S1/S2 Abd - Soft, NT/ND, Positive BS Ext - No pedal edema. Left knee dressing is clean, dry and intact Psych - Nml mood and affect. Aox4 Skin - Warm and dry Objective Data Vital Signs Vital Signs: Vital Signs - 24 hr 11/11/23 16:00 11/11/23 21:59 11/11/23 20:00 Temperature 98.3 F 98.8 F Pulse Rate 95 92 Respiratory Rate 20 18 Blood Pressure 114/57 L 141/68 H Pulse Oximetry 95 96 Oxygen Delivery Room Air 11/12/23 05:35 Temperature 97.9 F Pulse Rate 89 Respiratory Rate 18 Blood Pressure 139/69 Pulse Oximetry 93 Oxygen Delivery Intake/Output Intake/Output: Intake & Output 11/09/23 11/10/23 11/11/23 11/12/23 23:59 23:59 23:59 23:59 Intake Total 940 740 620 Output Total 600 500 Balance 940 140 120 Meds/Results Medications: Active Medications Generic Name Dose Route Start Last Admin Trade Name Freq PRN Reason Stop Dose Admin Acetaminophen 650 mg 11/10/23 14:00 11/12/23 11:36 Acetaminophen 325 Mg Tablet PO 650 mg Q4H KATIUSKA Administration Allopurinol 100 mg 11/11/23 09:00 11/12/23 08:46 Allopurinol 100 Mg Tablet PO 100 mg DAILY KATIUSKA Administration Apixaban 2.5 mg 11/11/23 09:00 11/12/23 08:45 Apixaban 2.5 Mg Tablet PO 11/22/23 21:01 2.5 mg Q12HR KATIUSKA Administration Benztropine Mesylate 1 mg 11/10/23 17:00 11/12/23 08:46 Benztropine Mesylate 1 Mg Tablet PO 1 mg BID KATIUSKA Administration Bupropion HCl 300 mg 11/10/23 09:00 11/12/23 08:45 Bupropion Hcl Xl (24 Hr) 150 Mg Tabcr BY MOUTH 300 mg QAM KATIUSKA Administration Bupropion HCl 150 mg 11/11/23 12:00 11/12/23 11:36 Bupropion Hcl Xl (24 Hr) 150 Mg Tabcr BY MOUTH 150 mg DAILY@1200 KATIUSKA Administration Cephalexin HCl 500 mg 11/11/23 12:00 11/12/23 11:36 Cephalexin 500 Mg Capsule PO 500 mg Q6HR KATIUSKA Administration Cyanocobalamin 1,000 mcg 11/11/23 09:35 11/11/23 12:24 Cyanocobalamin 1,000 Mcg Tablet PO 12/12/23 09:34 1,000 mcg DAILY KATIUSKA Administration Dextrose 12.5 gm 11/10/23 14:16 Dextrose 50% 25 Gm/50 Ml Syringe IV PUSH PRN PRN Hypoglycemia Protocol Diphenhydramine HCl 25 mg 11/10/23 13:25 Diphenhydramine Hcl Inj 50 Mg/Ml Vial IV PUSH Q6H PRN Itching Ezetimibe 10 mg 11/11/23 09:00 11/12/23 08:45 Ezetimibe 10 Mg Tablet PO 10 mg DAILY KATIUSKA Administration Famotidine 20 mg 11/10/23 21:00 11/12/23 08:46 Famotidine 20 Mg Tablet PO 20 mg Q12HR KATIUSKA Administration Glucagon 1 mg 11/10/23 14:16 Glucagon For Inj 1 Mg Vial IM PRN PRN Hypoglycemia Protocol Glucose 15 gm 11/10/23 14:16 Glucose Oral Gel 15 Gm Of Glucse In 37.5 Gm Tube PO PRN PRN Hypoglycemia Protocol Dextrose 1,000 mls @ 100 mls/hr 11/10/23 14:16 Dextrose 5% 1,000 Ml IVPB PRN PRN Hypoglycemia Protocol Insulin Aspart 3 - 6 units 11/10/23 17:00 11/11/23 18:00 Insulin Aspart (*Bkc) 100 Units/Ml SUB-Q Not Given TIDWM [facility] Protocol Insulin Aspart 1 - 3 units 11/10/23 21:00 11/11/23 20:34 Insulin Aspart (*Bkc) 100 Units/Ml SUB-Q Not Given HS [facility] Protocol Insulin Glargine 24 units 11/11/23 09:00 11/12/23 08:45 Insulin Glargine (*Bkc) 100 Units/Ml SUB-Q 24 units QAM KATIUSKA Administration Levothyroxine Sodium 25 mcg 11/11/23 06:30 11/12/23 05:38 Levothyroxine Sodium 25 Mcg Tablet PO 25 mcg DAILY@0630 KATIUSKA Administration Meloxicam 7.5 mg 11/11/23 08:00 11/12/23 08:45 Meloxicam 7.5 Mg Tablet PO 7.5 mg DAILY@0800 KATIUSKA Administration Metformin HCl 1,000 mg 11/10/23 18:00 11/11/23 17:10 Metformin Hcl 500 Mg Tablet PO 1,000 mg QPM KATIUSKA Administration Morphine Sulfate 2 mg 11/10/23 13:25 Morphine Sulfate (*Crx) 2 Mg/Ml Inj IV PUSH Q2H PRN Breakthrough Pain Rated 4-6 or NPO Naloxone HCl 0.1 mg 11/10/23 13:25 Naloxone Hcl 0.4 Mg/Ml Vial IV PUSH Q2M PRN Opiate Reversal Ondansetron HCl 4 mg 11/10/23 13:25 Ondansetron Inj 4 Mg/2 Ml Vial IV PUSH Q4H PRN Nausea And Vomiting Oxycodone HCl 5 mg 11/10/23 13:25 11/12/23 11:36 Oxycodone Hcl (*Crx) 5 Mg Tab Ir PO 5 mg Q4H KATIUSKA Administration Oxycodone HCl 5 mg 11/10/23 13:25 11/11/23 08:56 Oxycodone Hcl (*Crx) 5 Mg Tab Ir PO 5 mg Q4H PRN Administration Pain Rated 7-10 Pantoprazole Sodium 40 mg 11/11/23 09:00 11/12/23 08:45 Pantoprazole 40 Mg Tablet PO 40 mg QAM KATIUSKA Administration Polyethylene Glycol 17 gm 11/11/23 09:00 11/12/23 08:46 Polyethylene Glycol 3350 17 Gm Powd.Pack PO 17 gm QAM KATIUSKA Administration Risperidone 4 mg 11/10/23 21:00 11/12/23 08:45 Risperidone 1 Mg Tablet PO 4 mg Q12HR KATIUSKA Administration Senna/Docusate Sodium 2 tab 11/10/23 17:00 11/12/23 08:44 Senna/Docusate Sodium Tablet PO 2 tab BID KATIUSKA Administration Simvastatin 20 mg 11/10/23 18:00 11/11/23 17:10 Simvastatin 20 Mg Tablet PO 20 mg QPM KATIUSKA Administration Tamsulosin HCl 0.4 mg 11/10/23 21:00 11/11/23 20:32 Tamsulosin Hcl 0.4 Mg Capsule PO 0.4 mg HS KATIUSKA Administration Radiology Results: ITS Impressions Knee X-Ray 11/10/23 12:10 IMPRESSION: 1. Recent left total knee arthroplasty. Labs Labs: Laboratory Results - last 24 hr 11/11/23 11/11/23 11/12/23 16:27 20:34 05:12 WBC RBC Hgb Hct MCV MCH MCHC RDW Plt Count MPV Sodium Potassium Chloride Carbon Dioxide Anion Gap BUN Creatinine Estim Creat Clear Calc Estimated GFR Glucose POC Capillary Glucose 114 H 131 H 87 Calcium 11/12/23 11/12/23 11/12/23 07:20 07:57 11:24 WBC 5.5 RBC 2.95 L Hgb 9.3 L Hct 27.5 L MCV 93.2 MCH 31.5 MCHC 33.8 RDW 13.2 Plt Count 269 MPV 8.0 Sodium 132 L Potassium 3.6 Chloride 98 Carbon Dioxide 27 Anion Gap 7 BUN 11 Creatinine 0.60 L Estim Creat Clear Calc 123 Estimated GFR > 60 Glucose 116 H POC Capillary Glucose 98 171 H Calcium 8.4
[2023-11-12 14:00] VITALS: BP 132/64; PULSE 83; RESP 18; TEMP 36.8; O2SAT 100
[2023-11-12 16:42] LABS: SARS-CoV-2 RNA PCR Negative (Negative)
[2023-11-12 17:09] LABS: Glucose Point of Care 91 mg/dl (65-105)
== END 2023-11-12 17:15 | DRG 468 ==
LOC: ANH3MEDSUR 11-11 10:58
PROVIDERS: Physician Assistant; Admitting Provider Orthopaedic Surgery; PCP Internal Medicine; Visit Provider Physician Assistant Surgical
PROC: 0SRD0J9 Replacement of Left Knee Joint with Synthetic Substitute, Cemented, Open Approach (ICD-10-PCS; CPT 27487; principal; 2023-11-10 07:30)
DX: T84.093A Other mechanical complication of internal left knee prosthesis, initial encounter (principal); E11.9 Type 2 diabetes mellitus without complications; E78.00 Pure hypercholesterolemia, unspecified; M17.12 Unilateral primary osteoarthritis, left knee; N40.0 Benign prostatic hyperplasia without lower urinary tract symptoms; K21.9 Gastro-esophageal reflux disease without esophagitis; F20.9 Schizophrenia, unspecified; E03.9 Hypothyroidism, unspecified; M10.9 Gout, unspecified; Z98.42 Cataract extraction status, left eye; Z98.41 Cataract extraction status, right eye; Z87.891 Personal history of nicotine dependence
CPT/HCPCS: 36415; 73560; 80048; 80076; 82948; 83735; 84439; 84443; 84480; 85025; 85027; 87635; 97110; 97116; 97161; 97166; 97530; 97535; A9270; C1713; C1776; J0171; J0690; J1100; J1170; J1815; J1885; J2250; J2270; J2405; J2704; J2795; J3010; J3370; J7120

== ENCOUNTER 2023-11-30 17:28 | Emergency (ER) | payer MEDICARE, MEDICAID, SELFPAY ==
[2023-11-30 17:41] VITALS: BP 140/63; PULSE 87; RESP 20; TEMP 36.7; O2SAT 100
[2023-11-30 21:38] VITALS: BP 146/76; PULSE 78; RESP 18; TEMP 36.4; O2SAT 100
--- NOTE | 2023-11-30 21:47 | ED.EXTPRO ---
HPI - Extremity Problem General Chief complaint: Extremity Problem,Nontraumatic Stated complaint: TX FROM [facility] FOR US TO R/O DVT Time Seen by Provider: 11/30/23 21:02 Source: patient Mode of arrival: ambulatory Limitations: no limitations History of Present Illness HPI Narrative: this is a 63-year-old male who presents to the ED for chief complaint of left lower extremity swelling for the past several days. Patient is 3 week s/p left TKA with Dr. Hinton. patient was seen at another facility today and referred here for ultrasound to rule out DVT. Patient states that the calf is painful and the left side is certainly more swollen than right. Denies fevers, chills, fall, injury, numbness, weakness, chest pain, shortness of breath. Related Data Home Medications Medication Instructions Recorded Confirmed allopurinol 100 mg tablet 100 mg PO DAILY 05/03/19 11/25/23 benztropine 1 mg tablet 1 mg PO BID 05/03/19 11/25/23 bupropion HCl 150 mg 24 hr tablet, See Rx Instructions .Route .COMPLEX 05/03/19 11/25/23 extended release ezetimibe 10 mg tablet (Zetia) 10 mg PO DAILY 05/03/19 11/25/23 omeprazole 20 mg capsule,delayed 20 mg PO DAILY 05/03/19 11/25/23 release risperidone 4 mg tablet 4 mg PO BID 05/03/19 11/25/23 simvastatin 20 mg tablet 20 mg PO QPM 05/03/19 11/25/23 mecobalamin (vitamin B12) 1,000 1,000 mcg PO DAILY 11/09/19 11/25/23 mcg chewable tablet tamsulosin 0.4 mg capsule 0.4 mg PO HS 11/09/19 11/25/23 insulin glargine 100 unit/mL (3 30 unit subcut QAM 11/03/23 11/25/23 mL) subcutaneous pen (Lantus Solostar U-100 Insulin) levothyroxine 25 mcg tablet 25 mcg PO QAM 11/03/23 11/25/23 metformin 500 mg tablet 1,000 mg PO QPM 11/03/23 11/25/23 Allergies Allergy/AdvReac Type Severity Reaction Status Date / Time sulfamethoxazole Allergy Severe Unknown Verified 11/25/23 12:47 [From Bactrim] trimethoprim [From Bactrim] Allergy Severe Unknown Verified 11/25/23 12:47 Review of Systems Review of Systems: All systems as dictated in [facility] Past Medical History Medical History Benign prostatic hyperplasia Dyslipidemia Gastroesophageal reflux disease Gout Hypothyroidism Insulin dependent type 2 diabetes mellitus Schizophrenia Surgical History Surgical History History of cataract extraction History of hand surgery left History of left knee replacement Left [place] partial knee replacement per Dr. Hinton with revision on 11/10/2023. Family History Family History Other Family history unknown Social History Social History Social History: Surrogate medical decision maker: Elise Hugo, friend. Code status: Full code. Smoking packs per day: 1.5 Smoking cigarettes per day: 30.0 Years smoked: 30 Smoking pack-years: 45.00 Smoking status: Former smoker Alcohol intake: former Substance use type: does not use Do You Feel Safe in your Home?: Yes Lack of Transportation: No Lack of Food: Never True Current Housing: I Have Housing Concerned About Future Housing: No Difficulty Paying Gas/Electric Bills: No Difficulty Paying for Meds: No Currently Unemployed: No Education: High School Diploma/GED Difficulty w/ Childcare or Family Care: No Living arrangements: alone Additional living arrangements comments: supervised housing Occupation/Education: unemployed Spiritual care concerns: No Exam Narrative: GENERAL: Well-appearing, well-nourished, and in no acute distress. HEAD: Normocephalic, atraumatic. EYES: PERRLA and EOMI. ENT: Nares clear, no rhinorrhea or epistaxis. Mucous membranes moist. Oropharynx without tonsillar hypertrophy exudate or other lesions. NECK: Supple. No adenopathy or masses. CHEST:
[2023-11-30 22:19] LABS: Basophils Percent Auto 0.7 % (0.2-1.2); Eosinophils Absolute Auto 0.2 K/mm3 (0-0.3); Eosinophils Percent Auto 3.3 % (0-4.4); Hematocrit 32.7 % (42.0-52.0); Hemoglobin 10.5 g/dL (14.0-18.0); Immature Granulocyte Absolute 0.01 K/mm3 (0.00-0.031); Immature Granulocyte Percent A 0.2 % (0-0.5); Lymphocytes Absolute Auto 1.48 K/mm3 (0.9-3.2); Lymphocytes Percent Auto 32.5 % (18.3-44.2); Mean Corpuscular HGB Conc 32.1 g/dl (32-36); Mean Corpuscular Hemoglobin 30.1 pg (26-34); Mean Corpuscular Volume 93.7 fl (80-100); Mean Platelet Volume 7.8 fl (7.4-10.4); Monocytes Absolute Auto 0.6 K/mm3 (0.1-0.6); Monocytes Percent Auto 13.6 % (2.6-8.5); Neutrophils Absolute Auto 2.3 K/mm3 (1.3-6.7); Neutrophils Percent Auto 49.7 % (45.5-73.1); Platelet Count Result 421 k/mm3 (150-375); Red Blood Count 3.49 M/mm3 (4.6-6.20); Red Cell Distribution Width 13.2 % (11.5-14.5); White Blood Count 4.6 K/mm3 (4.5-10.0)
[2023-11-30 22:34] LABS: Alanine Aminotransferase 16 U/L (6-50); Albumin Level 3.8 g/dL (3.5-5.1); Alkaline Phosphatase 121 U/L (38-126); Anion Gap 9 mmol/L (4-12); Aspartate Amino Transferase 24 U/L (17-59); Bilirubin,Total 0.6 mg/dL (0.2-1.3); Blood Urea Nitrogen 4 mg/dL (9-20); Calcium 8.7 mg/dL (8.4-10.2); Carbon Dioxide 24 mmol/L (22-30); Chloride 100 mmol/L (98-107); Estimated CRCL calculation 92 ml/min; Estimated Glomerular Filt Rate > 60; Glucose 89 mg/dL (65-110); Potassium 3.6 mmol/L (3.4-5.0); Sodium 133 mmol/L (137-145)
[2023-11-30 22:53] LABS: INR 1.2; Prothrombin Time 15.4 Seconds (11.1-14.7)
[2023-11-30 22:54] LABS: Partial Thromboplastin Time 34.1 Seconds (22.3-36.8)
[2023-11-30 23:01] LABS: D Dimer 2.57 ug/mL (<0.48)
[2023-12-01] MEDS: ENOXAPARIN 80 MG/0.8 ML SYRINGE 73 MG SUB-Q
[2023-12-01 00:02] VITALS: BP 140/74; PULSE 83; RESP 13; O2SAT 100
== END 2023-12-01 00:05 | disposition home or self-care (01) ==
PROVIDERS: Emergency Provider Physician Assistant; PCP Internal Medicine
DX: R22.43 Localized swelling, mass and lump, lower limb, bilateral (principal); M79.605 Pain in left leg; N40.0 Benign prostatic hyperplasia without lower urinary tract symptoms; E78.5 Hyperlipidemia, unspecified; K21.9 Gastro-esophageal reflux disease without esophagitis; E03.9 Hypothyroidism, unspecified; E11.9 Type 2 diabetes mellitus without complications; F20.9 Schizophrenia, unspecified; Z79.4 Long term (current) use of insulin
CPT/HCPCS: 36415; 80053; 85025; 85380; 85610; 85730; 93971; 96372; 99283; J1650

== ENCOUNTER 2023-12-01 07:18 | Outpatient (CLI) | payer MEDICARE, MEDICAID, SELFPAY ==
--- NOTE | ~2023-12-01 | US_ITS ---
Duplex Sonography of the left extremity: Indication: Pain Findings: Sagittal and transverse B-mode images as well as color-flow imaging were performed on the l eft femoral and popliteal veins. B-mode examination was done without and with compression in the tra nsverse plane. There is good visualization of the common femoral, proximal profunda femoral, superfi cial femoral, greater saphenous, and popliteal veins. Normal flow was seen on color-flow imaging. No rmal compressibility was demonstrated. Visualized calf veins are also patent. Impression: No evidence of deep vein thrombosis involving the left lower extremity. Reviewed, dictated and finalized at location M. Impression: No evidence of deep vein thrombosis involving the left lower extremity.
== END 2023-12-01 07:19 | disposition home or self-care (01) ==
PROVIDERS: PCP Internal Medicine; Visit Provider Physician Assistant
DX: M79.605 Pain in left leg (principal)
CPT/HCPCS: 93971

== ENCOUNTER 2024-07-05 01:11 | Day surgery (SDC) | payer MEDICARE, MEDICAID, SELFPAY ==
[2024-06-27 13:48] VITALS: BMI 27.3
--- OUTSIDE RECORDS SUMMARY | 2024-07-05 01:14 | XMS_ITS | Clinical Summary ---
Author Organization [facility] Address [address] [place] [id number] Care Team Providers Care Sequins Spooler Name Role Phone Unavailable Primary Care Provider Unavailabl e Social History Tobacco Use Types Packs/Day Years Used Date Smoking Tobacco: Never Assessed Sex and Gender Information Value Date Recorded Sex Assigned at Not on file Legal Sex Male 8:18 PM CDT Gender Identity Not on file Sexual Orientation Not on file Plan of Treatment Health Maintenance Due Date Last Done Comments Colorectal Cancer Screening Colonoscopy (10 Years) 1959 Annual Physical 1962 Hepatitis C 1977 DTaP, Tdap and Td Vaccines ( 1 - Tdap) 1978 Zoster Vaccines (1 of 2) 2009 COVID-19 Vaccine ( - 2023-2 5 season) 2023 Influenza Adult (#1) 2024 Pneumococcal Vaccine: 65+ Ye ars (1 of 1 - PCV) 2024 RSV Immunization or 60+ Years (1 - 1-dose 75+ series) 2034 Meningococcal B Vaccine Aged Out No l onger eligible based on patient's age to complete this topic Meningococcal Vaccine Aged Out No raven jolene eligible based on patient's age to complete this topic Pneumococcal Vaccine: Pediat rics (0 to 5 Years) and At-Risk Patients (6 to 64 Years) Aged Out No longer eligible b ased on patient's age to complete this topic RSV Immunizations Under 20 Months Aged Out No longer eligible based on patient's age to complete this topic
--- OUTSIDE RECORDS SUMMARY | 2024-07-05 01:14 | XMS_ITS | CONTINUITY OF CARE DOCUMENT ---
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 Robert Grover MD Schizophrenia active David Meza EMPHYSEMA-09/05 [place] active ? Tucker Sanabria Hypercholesterolemia, mixed active Shanthi chen MYOCARDIAL PERFUSION SCAN, W ITH STRESS TEST, ABNORMAL active - Robert Grover MD Bilateral Lower Extremity Edema active Andreas Grover MD Obesity active Robert Grover MD Tobacco use, quit active David Meza Shortness of breath active Robert Kim ENCOUNTERS Date Type Provider Location Encounter Diag nosis - In-person encounter Office Visit Robert Grover MD [facility] - In-person encounter Office Visit Robert Grover MD [facility] Shortness of breath - In-person encounter Office Visit Robert Grover MD [facility] - In-person encounter Office Visit Robert Grover MD [facility] CHEST PAIN - ANGIOGRAPHICALLY NORMAL CORONARIES 2012SchizophreniaObesity Tobacco use, quit - In-person encounter Office Visit Robert Grover MD [facility] - In-person encounter Office Visit Robert Grover MD [facility] Bilateral Lower Extremity Edema - In-person encounter Office Visit Robert Grover MD [facility] CHEST PAIN - ANGIOGRAPHICALLY NORMAL CORONARIES 2012EDEMAMYOCARDIAL PERFUSION SCAN, WITH STRESS TEST, ABNORMAL - In-person encounter Office Visit Robert Grover MD [facility] - In-person encounter Office Visit Robert Grover MD [facility] - In-person encounter Office Visit Robert Grover MD [facility] - In-person encounter Office Visit Robert Grover MD [facility] - In-person encounter Office Visit Robert Grover MD [facility] CHEST PAIN - ANGIOGRAPHICALLY NORMAL CORONARIES 2012DIABETES MELLITUSSchizophreniaEMP HYSEMA-09/05 [place] NLHypercholesterolemia, mixed VITAL SIGNS Date Observation Value Provider Body Mass Index (Ratio) 31.95 kg/m2 Rito santiago Camargo respiratory rate E&M 16 /min [facility] pressure, diastolic 70 mm[Hg] [facility], [facility] 124 mm[Hg] Edda stity Mirta oxygen saturation, oximetry 98 % [facility] pulse [facility] 95 /min [facility] weight E&M 192 [lb_av] [facility] [in_i] [facility] Body Mass Index (Ratio) 31.28 kg/m2 [facility] oxygen saturation, oximetry 98 % Chastity Mirta respiratory rate E&M 16 /min Chastit y Mirta pulse rate 74 /min Chastity Mirta weight E&M 188 [lb_av] Chastity Mirta blood pressure, diastolic 60 mm[Hg] Ch astity Mirta blood pressure, systolic 120 mm[Hg] Edda stity Mirta height E&M 65 [in_i] [facility] Mirta Body Mass Index (Ratio) 30.78 kg/m2 [facility] respiratory rate E&M 18 /min Yanelis Maradiaga blood pressure, cuff size regular Cy mckinley Maradiaga blood pressure, diastolic 60 mm[Hg] Cy mckinley Maradiaga blood pressure, systolic 105 mm[Hg] Amada chrissy Maradiaga oxygen saturation, oximetry 98 % Yanelis Maradiaga pulse rate 86 /min Yanelis Augustebel l weight E&M 185 [lb_av] Yanelis Campbel l height E&M 65 [in_i] Yanelis Campbel l blood pressure, resting No Joo naseem Meza Body Mass Index (Ratio) 31.95 kg/m2 Andreas Grover MD blood pressure, cuff size regular Ke rri Eliane blood pressure, diastolic 71 mm[Hg] Ke rri Eliane blood pressure, systolic 107 mm[Hg] Teresa Del Rio oxygen saturation, oximetry 95 % Shanthi Del Rio respiratory rate E&M 18 /min Shanthi desai pulse rate 84 /min Shanthi kwon weight E&M 192 [lb_av] Shanthi Tate lder height E&M 65 [in_i] Shanthi Fredchidiholgertanvir joie blood pressure, diastolic 74 mm[Hg] Laurita Dahl Martins blood pressure, systolic 116 mm[Hg] Argenis Parkinson Martins pulse rate 89 /min Nyasia saldivar oxygen saturation, oximetry 97 % Nyasia Martins respiratory rate E&M 16 /min Patti Martins Body Mass Index (Ratio) 30.35 kg/m2 Alina Martins weight E&M 182.4 [lb_av] Nyasia lukeon Body Mass Index (Ratio) 30.62 kg/m2 Anea amparo Leon blood pressure, diastolic 86 mm[Hg] An eatris Edward blood pressure, systolic 129 mm[Hg] Ane atris Brown pulse rate 92 /min Aneatris Brown oxygen saturation, oximetry 97 % Aneatris Brown respiratory rate E&M 18 /min Aneatri s Brown weight E&M 184 [lb_av] Aneatrtawny Leon blood pressure, diastolic, left arm 63 mm [Hg] Tucker Zelaya RN blood pressure, systolic, left arm 106 mm [Hg] Tucker Zelaya RN blood pressure, diastolic, right arm 70 m m[Hg] Tucker Zelaya RN blood pressure, systolic, right arm 106 m m[Hg] Tucker Zelaya RN blood pressure, diastolic 63 mm[Hg] Sanya Zelaya RN blood pressure, systolic 106 mm[Hg] Tucker Zelaya RN pulse rate 82 /min Tucker Zelaya RN oxygen saturation, oximetry 98 % Tucker Zelaya RN respiratory rate E&M 16 /min Tucker hodges RN Body Mass Index (Ratio) 30.23 kg/m2 Tucker Zelaya RN weight E&M 181 [lb_av] Tucker Zelaya RN blood pressure, diastolic, left arm 60 mm [Hg] Caitlin Stue blood pressure, systolic, left arm 84 mm[ Hg] Caitlin Stue blood pressure, diastolic, right arm 58 m m[Hg] Caitlin St blood pressure, systolic, right arm 98 mm [Hg] Caitlin Costello Body Mass Index (Ratio) 31.90 kg/m2 Alejandrina Nixue blood pressure, diastolic 60 mm[Hg] Wicho Nix blood pressure, systolic 84 mm[Hg] Heriberto Nix pulse rate 84 /min Caitlin Costello oxygen saturation, oximetry 98 % Caitlin Costello respiratory rate E&M 16 /min Caitlin Yang tyrone weight E&M 191.0 [lb_av] Caitlin Costello height E&M 65 [in_i] Caitlinuma Costello pulse rate #2 84 Maame George blood pressure, calloway tolic, second observation 50 mm[Hg] Maame George blood pressure, syst olic, second observation 74 mm[Hg] Maame George oxygen saturation, oximetry 97 % Maame George pulse rate 80 /min Maame George blood pressure, diastolic 69 mm[Hg] Angela George blood pressure, systolic 113 mm[Hg] Renetta George pulse rate #2 106 Maame George blood pressure, calloway tolic, second observation 68 mm[Hg] Kneecy Ariel blood pressure, syst olic, second observation 91 mm[Hg] Maame George oxygen saturation, oximetry 97 % Maame George pulse rate 77 /min Maame George blood pressure, diastolic 57 mm[Hg] Angela George blood pressure, systolic 87 mm[Hg] Renetta George pulse rate #2 80 Maame George blood pressure, calloway tolic, second observation 57 mm[Hg] [facility] blood pressure, syst olic, second observation 87 mm[Hg] [facility] Ariel oxygen saturation, oximetry 97 % [facility]el pulse rate 67 /min [facility] blood pressure, diastolic 61 mm[Hg] Angela zapata Ariel blood pressure, systolic 93 mm[Hg] Renetta guerrero Ariel pulse rate #2 84 [facility] blood pressure, calloway tolic, second observation 76 mm[Hg] [facility] blood pressure, syst olic, second observation 111 mm[Hg] [facility] oxygen saturation, oximetry 97 % [facility] pulse rate 80 /min [facility] blood pressure, diastolic 75 mm[Hg] Angela zapata Ariel blood pressure, systolic 126 mm[Hg] Renetta guerrero Ariel pulse rate #2 80 [facility] blood pressure, calloway tolic, second observation 66 mm[Hg] [facility] blood pressure, syst olic, second observation 104 mm[Hg] [facility] oxygen saturation, oximetry 97 % [facility] pulse rate 84 /min [facility] blood pressure, diastolic 66 mm[Hg] Angela zapata Ariel blood pressure, systolic 109 mm[Hg] Renetta janayfelton Ariel pulse rate #2 88 Saud Manacoandrew blood pressure, calloway tolic, second observation 64 mm[Hg] Saud Man[place] blood pressure, syst olic, second observation 97 mm[Hg] Saud [place] oxygen saturation, oximetry 99 % Saud [place] pulse rate 68 /min Saud [place] blood pressure, diastolic 73 mm[Hg] Yareli singleton [place] blood pressure, systolic 116 mm[Hg] Moo olmedo [place] pulse rate #2 79 Saud [place] blood pressure, calloway tolic, second observation 63 mm[Hg] Saud [place] blood pressure, syst olic, second observation 109 mm[Hg] Saud [place] oxygen saturation, oximetry 99 % Saud [place] pulse rate 75 /min Saud [place] blood pressure, diastolic 66 mm[Hg] Yareli seph [place] blood pressure, systolic 125 mm[Hg] Moo eph [place] pulse rate #2 86 Saud [place] blood pressure, calloway tolic, second observation 66 mm[Hg] Saud [place] blood pressure, syst olic, second observation 104 mm[Hg] Saud [place] oxygen saturation, oximetry 99 % Saud [place] pulse rate 69 /min Saud [place] blood pressure, diastolic 69 mm[Hg] Yareli seph [place] blood pressure, systolic 113 mm[Hg] Moo eph [place] pulse rate #2 87 Saud [place] blood pressure, calloway tolic, second observation 62 mm[Hg] Saud [place] blood pressure, syst olic, second observation 103 mm[Hg] Saud [place] oxygen saturation, oximetry 99 % Saud [place] pulse rate 78 /min Saud [place] blood pressure, diastolic 73 mm[Hg] Yareli seph [place] blood pressure, systolic 109 mm[Hg] Moo eph [place] pulse rate #2 90 Saud [place] blood pressure, calloway tolic, second observation 61 mm[Hg] Saud [place] blood pressure, syst olic, second observation 106 mm[Hg] Saud [place] oxygen saturation, oximetry 99 % Saud [place] pulse rate 80 /min Saud [place] blood pressure, diastolic 68 mm[Hg] Yareli seph [place] blood pressure, systolic 115 mm[Hg] Moo eph [place] pulse rate #2 83 Saud [place] blood pressure, calloway tolic, second observation 61 mm[Hg] Saud [place] blood pressure, syst olic, second observation 107 mm[Hg] Saud [place] oxygen saturation, oximetry 99 % Saud [place] pulse rate 77 /min Saud [place] blood pressure, diastolic 73 mm[Hg] Yareli seph [place] blood pressure, systolic 118 mm[Hg] Moo eph [place] pulse rate #2 73 Saud [place] blood pressure, calloway tolic, second observation 68 mm[Hg] Saud [place] blood pressure, syst olic, second observation 104 mm[Hg] Saud [place] oxygen saturation, oximetry 99 % Saud [place] pulse rate 63 /min Saud [place] blood pressure, diastolic 78 mm[Hg] Yareli seph [place] blood pressure, systolic 117 mm[Hg] Moo eph [place] pulse rate #2 61 Saud [place] blood pressure, calloway tolic, second observation 81 mm[Hg] Saud [place] blood pressure, syst olic, second observation 122 mm[Hg] Saud [place] oxygen saturation, oximetry 99 % Saud [place] pulse rate 63 /min Saud [place] blood pressure, diastolic 81 mm[Hg] Yareli seph [place] blood pressure, systolic 133 mm[Hg] Moo eph [place] pulse rate #2 77 Saud [place] blood pressure, calloway tolic, second observation 63 mm[Hg] Saud [place] blood pressure, syst olic, second observation 112 mm[Hg] Saud [place] oxygen saturation, oximetry 99 % Saud [place] pulse rate 72 /min Saud [place] blood pressure, diastolic 71 mm[Hg] Yareli seph [place] blood pressure, systolic 114 mm[Hg] Moo eph [place] pulse rate #2 80 Saud [place] blood pressure, calloway tolic, second observation 64 mm[Hg] Saud [place] blood pressure, syst olic, second observation 105 mm[Hg] Saud [place] oxygen saturation, oximetry 99 % Saud [place] pulse rate 68 /min Saud [place] blood pressure, diastolic 73 mm[Hg] Yareli seph [place] blood pressure, systolic 119 mm[Hg] Moo eph [place] respiratory rate E&M 71 /min Saud Man[place] pulse rate #2 74 Saud [place] blood pressure, calloway tolic, second observation 67 mm[Hg] Saud Man[place] blood pressure, syst olic, second observation 109 mm[Hg] Saud Man[place] oxygen saturation, oximetry 99 % Saud [place] pulse rate 70 /min Saud Man[place] blood pressure, diastolic 65 mm[Hg] Yareli seph [place] blood pressure, systolic 104 mm[Hg] Moo eph [place] pulse rate #2 76 Saud [place] blood pressure, calloway tolic, second observation 67 mm[Hg] Saud Man[place] blood pressure, syst olic, second observation 116 mm[Hg] Saud Man[place] oxygen saturation, oximetry 99 % Saud [place] pulse rate 68 /min Saud [place] blood pressure, diastolic 80 mm[Hg] Yareli seph [place] blood pressure, systolic 121 mm[Hg] Moo eph [place] pulse rate #2 76 Saud [place] blood pressure, calloway tolic, second observation 63 mm[Hg] Saud Man[place] blood pressure, syst olic, second observation 97 mm[Hg] Saud Man[place] oxygen saturation, oximetry 99 % Saud [place] pulse rate 70 /min Saud Man[place] blood pressure, diastolic 75 mm[Hg] Yareli seph [place] blood pressure, systolic 117 mm[Hg] Moo eph [place] pulse rate #2 85 Saud Man[place] blood pressure, calloway tolic, second observation 64 mm[Hg] Saud [place] blood pressure, syst olic, second observation 95 mm[Hg] Saud Man[place]op oxygen saturation, oximetry 99 % Saud [place] pulse rate 71 /min Saud Man[place] blood pressure, diastolic 75 mm[Hg] Yareli seph [place] blood pressure, systolic 119 mm[Hg] Moo eph [place] pulse rate #2 74 Saud [place] blood pressure, calloway tolic, second observation 67 mm[Hg] Saud Man[place] blood pressure, syst olic, second observation 103 mm[Hg] Saud Man[place]op oxygen saturation, oximetry 99 % Saud [place] pulse rate 61 /min Saud Man[place]op blood pressure, diastolic 76 mm[Hg] Yareli seph [place] blood pressure, systolic 113 mm[Hg] Moo eph [place] pulse rate #2 75 Saud [place] blood pressure, calloway tolic, second observation 73 mm[Hg] Saud [place] blood pressure, syst olic, second observation 126 mm[Hg] Saud [place] oxygen saturation, oximetry 99 % Suad [place] pulse rate 68 /min Saud [place] blood pressure, diastolic 71 mm[Hg] Yareli seph [place] blood pressure, systolic 118 mm[Hg] Moo eph [place] pulse rate #2 83 Saud [place] blood pressure, calloway tolic, second observation 70 mm[Hg] Saud [place] blood pressure, syst olic, second observation 114 mm[Hg] Saud Man[place] oxygen saturation, oximetry 99 % Saud [place] pulse rate 72 /min Saud [place] blood pressure, diastolic 79 mm[Hg] Yareli seph [place] blood pressure, systolic 129 mm[Hg] Moo eph [place] pulse rate #2 80 Saud Man[place]op blood pressure, calloway tolic, second observation 72 mm[Hg] Saud Man[place] blood pressure, syst olic, second observation 116 mm[Hg] Saud Man[place]op oxygen saturation, oximetry 99 % Saud [place] pulse rate 71 /min Saud Man[place]op blood pressure, diastolic 79 mm[Hg] Yareli seph [place] blood pressure, systolic 113 mm[Hg] Moo eph [place] pulse rate #2 82 Saud [place] blood pressure, calloway tolic, second observation 64 mm[Hg] Saud Man[place] blood pressure, syst olic, second observation 115 mm[Hg] Saud Man[place] oxygen saturation, oximetry 99 % Saud [place] pulse rate 77 /min Saud Man[place] blood pressure, diastolic 59 mm[Hg] Yareli seph [place] blood pressure, systolic 102 mm[Hg] Moo eph [place] pulse rate #2 88 Saud [place] blood pressure, calloway tolic, second observation 74 mm[Hg] Saud [place] blood pressure, syst olic, second observation 113 mm[Hg] Saud [place] oxygen saturation, oximetry 99 % Saud [place] pulse rate 69 /min Saud [place] blood pressure, diastolic 78 mm[Hg] Yareli seph [place] blood pressure, systolic 121 mm[Hg] Moo eph [place] pulse rate #2 68 Saud [place] blood pressure, calloway tolic, second observation 73 mm[Hg] Saud [place] blood pressure, syst olic, second observation 110 mm[Hg] Saud [place] oxygen saturation, oximetry 99 % Saud [place] pulse rate 65 /min Saud [place] blood pressure, diastolic 71 mm[Hg] Yareli seph [place] blood pressure, systolic 113 mm[Hg] Moo eph [place] pulse rate #2 84 Saud [place] blood pressure, calloway tolic, second observation 96 mm[Hg] Saud [place] blood pressure, syst olic, second observation 151 mm[Hg] Saud Man[place] oxygen saturation, oximetry 99 % Saud [place] pulse rate 78 /min Saud [place] blood pressure, diastolic 62 mm[Hg] Yareli seph [place] blood pressure, systolic 102 mm[Hg] Moo eph [place] pulse rate #2 93 Saud [place] blood pressure, calloway tolic, second observation 66 mm[Hg] Saud Man[place] blood pressure, syst olic, second observation 109 mm[Hg] Saud Man[place] oxygen saturation, oximetry 99 % Saud [place] pulse rate 85 /min Saud Man[place] blood pressure, diastolic 70 mm[Hg] Yareli seph [place] blood pressure, systolic 123 mm[Hg] Moo eph [place] pulse rate #2 82 Saud [place] blood pressure, calloway tolic, second observation 71 mm[Hg] Saud Man[place] blood pressure, syst olic, second observation 111 mm[Hg] Saud Man[place] oxygen saturation, oximetry 99 % Saud [place] pulse rate 74 /min Saud Man[place] blood pressure, diastolic 70 mm[Hg] Yareli seph [place] blood pressure, systolic 117 mm[Hg] Moo eph [place] oxygen saturation, oximetry 99 % Saud [place] pulse rate 78 /min Saud Man[place] blood pressure, diastolic 72 mm[Hg] Yareli seph [place] blood pressure, systolic 118 mm[Hg] Moo eph [place] pulse rate #2 77 Saud [place] blood pressure, calloway tolic, second observation 68 mm[Hg] Saud Man[place] blood pressure, syst olic, second observation 110 mm[Hg] Saud Man[place]op oxygen saturation, oximetry 99 % Saud Man[place] pulse rate 77 /min Saud Man[place] blood pressure, diastolic 70 mm[Hg] Yareli seph [place] blood pressure, systolic 116 mm[Hg] Moo eph [place] pulse rate #2 76 Saud Man[place] blood pressure, calloway tolic, second observation 67 mm[Hg] Saud Man[place]op blood pressure, syst olic, second observation 107 mm[Hg] Saud Manacop oxygen saturation, oximetry 99 % Saud Man[place] pulse rate 79 /min Saud Man[place] blood pressure, diastolic 69 mm[Hg] Yareli seph [place] blood pressure, systolic 105 mm[Hg] Moo eph [place] pulse rate #2 82 Saud [place] blood pressure, calloway tolic, second observation 68 mm[Hg] Saud Man[place] blood pressure, syst olic, second observation 102 mm[Hg] Saud Man[place] oxygen saturation, oximetry 99 % Saud Man[place] pulse rate 70 /min Saud Man[place] blood pressure, diastolic 71 mm[Hg] Yareli seph [place] blood pressure, systolic 112 mm[Hg] Moo eph [place] pulse rate #2 75 Saud Man[place] blood pressure, calloway tolic, second observation 63 mm[Hg] Saud Man[place] blood pressure, syst olic, second observation 93 mm[Hg] Saud Man[place] oxygen saturation, oximetry 99 % Saud [place] pulse rate 77 /min Saud Man[place] blood pressure, diastolic 66 mm[Hg] Yareli seph [place] blood pressure, systolic 104 mm[Hg] Moo eph [place] pulse rate #2 80 Saud [place] blood pressure, calloway tolic, second observation 68 mm[Hg] Saud Man[place] blood pressure, syst olic, second observation 107 mm[Hg] Saud Man[place] oxygen saturation, oximetry 99 % Saud [place] pulse rate 88 /min Saud [place] blood pressure, diastolic 68 mm[Hg] Yareli seph [place] blood pressure, systolic 120 mm[Hg] Moo eph [place] blood pressure, diastolic 63 mm[Hg] Sanya Zelaya RN blood pressure, systolic 100 mm[Hg] Tucker Zelaya RN pulse rate 83 /min Tucker Zelaya RN oxygen saturation, oximetry 99 % Tucker Zelaya RN respiratory rate E&M 18 /min Tucker hodges RN Body Mass Index (Ratio) 32.24 kg/m2 Tucker Zelaya RN weight E&M 199 [lb_av] Tucker Zelaya RN height E&M 66 [in_i] Tucker Zelaya RN blood pressure, diastolic, left arm 69 mm [Hg] Saud Manacop blood pressure, systolic, left arm 114 mm [Hg] Saud [place] blood pressure, diastolic, right arm 71 m m[Hg] Saud Man[place] blood pressure, systolic, right arm 104 m m[Hg] Saud Man[place] blood pressure, diastolic 71 mm[Hg] Yareli seph [place] blood pressure, systolic 104 mm[Hg] Moo eph [place] pulse rate 83 /min Saud [place] oxygen saturation, oximetry 98 % Saud Man[place] respiratory rate E&M 16 /min Saud [place] weight E&M 198.2 [lb_av] Saud Man[place] blood pressure, diastolic, left arm 65 mm [Hg] Saud Man[place] blood pressure, systolic, left arm 100 mm [Hg] Saud Man[place] blood pressure, diastolic, right arm 58 m m[Hg] Saud Man[place] blood pressure, systolic, right arm 106 m m[Hg] Saud Man[place] blood pressure, diastolic 58 mm[Hg] Yareli seph [place] blood pressure, systolic 106 mm[Hg] Moo eph [place] pulse rate 89 /min Saud [place] oxygen saturation, oximetry 97 % Saud [place] respiratory rate E&M 16 /min Saud Man[place] weight E&M 203 [lb_av] Saud Man[place] blood pressure, diastolic, left arm 74 mm [Hg] Saud [place] blood pressure, systolic, left arm 110 mm [Hg] Saud [place] blood pressure, diastolic, right arm 66 m m[Hg] Saud [place] blood pressure, systolic, right arm 100 m m[Hg] Saud [place] blood pressure, diastolic 66 mm[Hg] Yareli seph [place] blood pressure, systolic 100 mm[Hg] Moo eph [place] pulse rate 84 /min Saud [place] oxygen saturation, oximetry 98 % Saud [place] respiratory rate E&M 16 /min Saud [place] weight E&M 202 [lb_av] [place] ALLERGIES No Known Drug Allergies RESULTS Date Observation Value Provider Reference Range Interpretation Location 2 nitrate usage None Maame George 1 nitrate usage None Maame George 8 nitrate usage None Maame George 7 nitrate usage None Maame George 6 nitrate usage None Maame George 1 nitrate usage None [facility] 0 nitrate usage None [facility] 9 nitrate usage None [facility] 8 nitrate usage None [facility] 7 nitrate usage None [facility] 4 nitrate usage None [facility] 3 nitrate usage None [facility] 2 nitrate usage None [facility] 1 nitrate usage None [facility] 0 nitrate usage None [facility] 7 nitrate usage None [facility] 3 nitrate usage None [facility] 1 nitrate usage None [facility] 0 nitrate usage None [facility] 9 nitrate usage None [facility] 8 nitrate usage None [facility] 4 nitrate usage None [facility] 2 nitrate usage None [facility] 1 nitrate usage None [facility] 0 nitrate usage None [facility] 7 nitrate usage None [facility] 5 nitrate usage None [facility] 4 nitrate usage None [facility] 0 nitrate usage None [facility] 8 nitrate usage None [facility] 7 nitrate usage None [facility] 3 nitrate usage Note [facility] 2 nitrate usage None [facility] 1 nitrate usage None [facility] 0 nitrate usage None [facility] 1 international normalized ratio (INR) 1.0 [facility] 1 platelet count 313 10*3/mm3 [facility] 1 hematocrit, blood 40.6 % [facility] 1 creatinine, serum 0.84 mg/dL [facility] 1 potassium, serum 4.7 mmol/L [facility] 1 sodium, serum 134 mmol/L Sebas Tierney HISTORY OF MEDICATION USE Medication Status Instructions Dates Provider Indications Com ments ALLOPURINOL 100 MG ORAL TABLET active one tab once daily Chanoam Kirby PROAIR HFA 108 (90 BASE) MCG/ACT INHALATION AEROSOL SOLUTION active as needed Chastfeliciano Calderónue EC-NAPROXEN 500 MG ORAL TABLET DELAYED RELEASE active as needed [facility] MET[facility] 500 MG ORAL TABLET active take one pill a day Shanthi Del Rio ANUCORT-HC 25 MG RECTAL SUPPOSITORY active as needed Shanthi Del Rio CVS STOOL SOFTENER 100 MG ORAL CAPSULE active as needed up to 3 times a day Shanthi Del Rio WELLBUTRIN SR 150 MG ORAL TABLET EXTENDED RELEASE 12 HOUR active take one pill at night Shanthi Del Rio HUMALOG 100 UNIT/ML SUBCUTANEOUS SOLUTION active 15 units twice a day David Meza IBUPROFEN 800 MG ORAL TABLET active as needed for pain Shanthi Del Rio VITAMIN B-12 1000 MCG ORAL TABLET active One tablet daily Nyasia [facility] SEROQUEL 100 MG ORAL TABLET active 1 tab daily Aneatris Brown IBUPROFEN CAPSULE completed as needed - Shanthi Del Rio TRAMADOL HCL 50 MG ORAL TABLET completed daily - Aneatris Brown PROAIR HFA 108 (90 Base) MCG/ACT INHALATION AEROSOL SOLUTION completed 2 puffs bid - Aneatris Brown TRAMADOL HCL 50 MG ORAL TABLET completed 1 tab daily - Aneatris Brown IBUPROFEN TABLET completed 1 tab as needed - Shanthi Del Rio WELLBUTRIN TABLET completed daily - Shanthi Del Rio AMLODIPINE BESYLATE 2.5 MG ORAL TABLET completed one tab daily (replaces Ranexa) - Robert Grover MD RANEXA 500 MG ORAL TABLET EXTENDED RELEASE 12 HOUR completed ONE TAB. TWICE DAILY for chronic angina - Alina West RN NOVOLIN 70/30 (70-30) 100 UNIT/ML SUBCUTANEOUS SUSPENSION completed 100uts/ml 15 u in am and10 u pm - Shanthi Del Rio SAPHRIS 10 MG SUBLINGUAL TABLET SUBLINGUAL completed twice daily - Shanthi Del Rio RISPERDAL 4 MG ORAL TABLET active take one pill twice a day Shanthi Del Rio [facility] OMEPRAZOLE 20 MG ORAL TABLET DELAYED RELEASE active daily Tucker Zelaya RN NITROSTAT 0.4 MG SUBLINGUAL TABLET SUBLINGUAL active One tab. under tongue as needed. May repeat twice in 10 minutes. Robert Grover MD PROAIR HFA 108 (90 Base) MCG/ACT INHALATION AEROSOL SOLUTION completed 2 puffs by mouth 3 times daily as needed - Tucker Zelaya RN AMOXICILLIN 500 MG ORAL CAPSULE completed 1 capsule by mouth 3 times daily - Tucker Zelaya RN LANTUS 100 UNIT/ML SUBCUTANEOUS SOLUTION completed 30 units at bedtime - Tucker Zelaya RN VITAMIN E 400 UNIT ORAL CAPSULE active 1 capsule by mouth daily Saud López ASPIRIN 81 MG ORAL TABLET active 1 tablet by mouth daily Saud López POTASSIUM CHLORIDE ER 10 MEQ ORAL TABLET EXTENDED RELEASE active 1 tablet by mouth daily Saud López BENZTROPINE MESYLATE 1 MG ORAL TABLET active 1 tablet by mouth twice daily Saud López RISPERDAL 4 MG ORAL TABLET completed 1 tablet by mouth every evening - Tucker Zelaya RN RISPERDAL 2 MG ORAL TABLET completed 1 tablet by mouth in the morning - Tucker Zelaya RN CLONAZEPAM 0.5 MG ORAL TABLET active 1 tablet by mouth 3 times daily Saud López BUDEPRION XL 300 MG [id number] active 1 tablet by mouth daily Saud López JANUVIA 100 MG ORAL TABLET completed 1 tablet by mouth daily - Tucker Zelaya RN AMARYL 1 MG ORAL TABLET active one tab once daily Afsaneh Kirby ONGLYZA 5 MG ORAL TABLET completed 1 tablet by mouth daily - Aneatris Brown NIASPAN 1000 MG ORAL TABLET EXTENDED RELEASE active 1 tablet by mouth daily Saud López FUROSEMIDE 40 MG ORAL TABLET active 1 tablet by mouth daily Saud López SPIRONOLACTONE 50 MG ORAL TABLET active ONE TAB. DAILY Shanthi Eliane TAMSULOSIN HCL 0.4 MG ORAL CAPSULE active 1 capsule by mouth at bedtime Saud López NABUMETONE 500 MG ORAL TABLET completed 1 tablet by mouth daily for back pain - Tucker Zelaya RN ZETIA 10 MG ORAL TABLET active 1 tablet by mouth daily Saud López SIMVASTATIN 20 MG ORAL TABLET active 1 tablet by mouth daily Saud López SOCIAL HISTORY Date Observation Value Provider social history E&M Marital Statu s: Single Smoking History: Andrew cerda is a former smoker. Robert Grover MD social history reviewed E&M revi ewed - no changes required Robert Grover MD physical exercise, f requency, days per week yes Eddastity Mirta caffeine use, averag e drinks per day 1+ Chastity Mirta passive cigarette sm dominik exposure no Chastity Mirta smoking status Former smoker Eddastity Hog ue social history E&M Marital Statu s: Single Smoking History: Andrew cerda is a former smoker. Robert Grover MD social history reviewed E&M revi ewed - no changes required Robert Grover MD physical exercise, f requency, days per week yes Eddafeliciano Mirta caffeine use, averag e drinks per day 1+ Chastity Mirta passive cigarette sm dominik exposure no Chastity Mirta smoking status Former smoker Chastity Hog ue number of grandchildren Robert Grover MD social history E&M Marital Statu s: Single Smoking History: Andrew cerda is a former smoker. Robert Grover MD social history reviewed E&M revi ewed - no changes required Robert Grover MD physical exercise, f requency, days per week yes Yanelis Maradiaga alcohol use, average drinks per day none Yanelis Maradiaga alcohol use no Yanelis fritz caffeine use, averag e drinks per day 1+ Yanelis Maradiaga drug use no Yanelis fritz passive cigarette sm dominik exposure no Yanelis Maradiaga smoking status Former smoker Yanelis brown social history E&M Marital Statu s: Single Smoking History: Andrew cerda is a former smoker. Robert Grover MD social history reviewed E&M revi ewed - no changes required Robert Grover MD physical exercise, f requency, days per week yes Shanthi Del Rio alcohol use, average drinks per day none Shanthi Del Rio alcohol use no Shanthipayton kwon caffeine use, averag e drinks per day 1+ David Meza drug use no Shanthi Lea salterer passive cigarette sm dominik exposure no Shanthipayton Del Rio smoking status Former smoker Shanthi Gertrudis becerra social history reviewed E&M revi ewed - no changes required Robert Grover MD physical exercise, f requency, days per week yes Nyasia Martins alcohol use, average drinks per day none Nyasia Martins alcohol use no Nyasia saldivar caffeine use, averag e drinks per day yes Nyasia Martins drug use no Nyasia Lovee danielon passive cigarette sm dominik exposure no Nyasia Martins smoking status Former smoker Nyasia St rivera social history E&M Marital Statu s: Single Smoking History: Andrew cerda is a former smoker. Robert Grover MD smoking/tobacco cess ation, patient education and counseling No Robert Grover MD physical exercise, f requency, days per week yes Robert Grover MD alcohol use, average drinks per day none Robert Grover MD caffeine use, averag e drinks per day yes Robert Grover MD drug use no Robert Grover MD passive cigarette sm dominik exposure no Robert Grover MD smoking status Former smoker Robert garcia MD social history reviewed E&M revi ewed - no changes required Robert Grover MD social history reviewed E&M reviewed Tucker Zelaya RN social history reviewed E&M reviewed Tucker Zelaya RN drug use no Tucker Zelaya RN passive cigarette sm dominik exposure no uTcker Zelaya RN smoking history, tot al pack/year 39 Tucker Zelaya RN smoking, year quit 2009 Tucker yang RN social history reviewed E&M reviewed Tucker Zelaya RN smoking status former smoker Tucker Sanabria drug use none Robert Grover MD social history reviewed E&M reviewed Robert Grover MD social history reviewed E&M reviewed Tucker Zelaya RN social history E&M Marital Status: Single Tucker Zelaya RN social history reviewed E&M reviewed Tucker Zelaya RN physical exercise, f requency, days per week yes [employer] caffeine use, averag e drinks per day yes [employer] alcohol use, average drinks per day none [employer] smoking status [facility] MENTAL STATUS Date Observation Value Provider assessment of judgme nt and insight E&M Alert and oriented to time, place and person. Mood and affect are normal. Appears alittle mentally challenged Tucker Zelaya RN assessment of judgme nt and insight E&M Alert and oriented to time, place and person. Mood and affect are normal. Appears alittle mentally challenged Tucker Zelaya RN energy level yes Maame George energy level yes Kneemoises Ariel energy level yes Kneemoises Ariel energy level yes Kneemoises Ariel energy level yes Kneemoises George energy level yes Saud Manacop energy level yes Saud Manacop energy level yes Saud Man[place] energy level yes Saud Manacop energy level yes Saud Manacop energy level yes Saud Manacop energy level yes Saud Manac[place] energy level yes Saud Manacop energy level yes Saud [place] energy level yes Saud [place] energy level yes Saud Manac[place] energy level yes Saud [place] energy level yes Saud [place] energy level yes Saud [place]ac[place] energy level yes Saud Manac[place] energy level yes Saud Manac[place] energy level yes Saud [place] energy level yes Saud Manac[place] energy level yes Saud Manac[place] energy level yes Saud Manacop energy level yes Saud Manacop energy level yes Saud Manac[place] energy level no Saud [place]ac[place] energy level yes Saud [place] energy level yes Saud [place] energy level yes Saud [place] energy level yes Saud [place] energy level yes Saud [place] energy level no Saud [place] energy level no Saud Manacop assessment of judgme nt and insight E&M Alert and oriented to time, place and person. Mood and affect are normal. Appears alittle mentally challenged Tucker Zelaya RN assessment of judgme nt and insight E&M Alert and oriented to time, place and person. Mood and affect are normal. Appears alittle mentally challenged Robert Grover MD assessment of judgme nt and insight E&M Alert and oriented to time, place and person. Mood and affect are normal. Appears alittle mentally challenged Tucker Zelaya RN assessment of judgme nt and insight E&M Alert and oriented to time, place and person. Mood and affect are normal. 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 COMPLETE PPO) Other [id number] [facility] Medicaid 1 [id number] ADVANCE DIRECTIVES Name Date DISCUSSED - NO DECISION MADE TREATMENT PLAN Date Name Performer Cardiology:Weight lo ss advised. Effort tolerance limited by knee pain. Cardiology:Continues on multiple medications. Cardiology:Continues on oral agents and insulin. Reduced intake of carbohydrates and sugars advised. Cardiology:Continues on Simvastatin, Zetia, and Niaspan. Most recent LDL 42 which is satisfactory. Cardiology:No recurr ence. His stress test was normal and he has been reassured. He continues on Aspirin. No nitro since last seen. Cardiology :Continues on multipl e medications. Cardiology :Weight loss advised. Cardiology :Continue s on Metformin, Humalog, and Glimepiride. Cardiology :Continue s on Simvastatin, Zetia, and Niaspan. Will request labs from your office. Cardiology :Effort r elated shortness of breath in a patient with risk factors for CAD. His last cardiac workup was in 2011. Will arrange echocardiogram and stress test. Cardiology follow up :Weight los s advised. Robert Grover MD Cardiology follow up :Continues on Glimepiride, Humalog and Metformin. Robert Grover MD Cardiology follow up :Continues on Simvastatin and Zetia. Robert Grover MD Cardiology follow up :No recurrence. Continues on Aspirin. Robert Grover MD Cardiology Follow up:Weight loss advised. David Meza Cardiology Follow up :Continues on Simvastatin, Zetia and Niaspan. David Meza Cardiology Follow up :Well controlled and compliant with a diet. David Derrick Cardiology Follow up :Since his last visit, he has had no recurrence of chest pain and his effort tolerance remains stable. David Meza Cardiology:Resolved. Robert saldana MD Cardiology:Well cont rolled as per pt. On Novolin insulin and Glimepiride. Robert Grover MD Cardiology:No recurrence of ches t pain. Robert Grover MD Cardiology:On simvastatin, Zetia , and Niaspan. Robert Grover MD follow up: T he following medications were removed from the medication list: Onglyza 5 Mg Tabs (Saxagliptin hcl) ..... 1 tablet by mouth daily His updated medication list for this problem includes: Glimepiride 2 Mg Tabs (Glimepiride) ..... 1 tablet by mouth daily Aspirin 81 Mg Tabs (Aspirin) ..... 1 tablet by mouth daily Novolin 70/30 (70-30) 100 Unit/ml Susp (Insulin isophane & regular) ..... 100uts/ml 15 u in am and10 u pm Robert Grover MD follow up Robert Kim follow up: H is updated medication list for this problem includes: Aspirin 81 Mg Tabs (Aspirin) ..... 1 tablet by mouth daily Nitrostat 0.4 Mg Subl (Nitroglycerin) ..... One tab. under tongue as needed. may repeat twice in 10 minutes. Orders: E KG ([id number]) Robert Grover MD follow up: H is updated medication list for this problem includes: Simvastatin 20 Mg Tabs (Simvastatin) ..... 1 tablet by mouth daily Zetia 10 Mg Tabs (Ezetimibe) ..... 1 tablet by mouth daily Niaspan 1000 Mg Cr-tabs (Niacin (antihyperlipidemic)) ..... 1 tablet by mouth daily Robert Grover MD Date Name Complete Echo Stress Regadenoson ECP - Medicare Cardiac Cath - Left - GC X-Ray, Chest, PA & L ateral Cardiopulmonary Stre ss Test Spirometry Stress Test - Nuclea r Complete Echo HISTORY OF PROCEDURES Procedure Date Procedure Name Provider Procedure Notes S tatus EKG Robert Grover MD complet ed Regadenoson, 4 units Robert Grover MD completed Cardiolite, 2 units Robert Grover MD completed SPECT Images Robert Grover MD compl eted Stress EKG Robert Grover MD complet ed EKG Robert Grover MD complet ed EKG Robert Grover MD complet ed SNOMED-CT: [id number] Physical Exam, Performed: Pulse Exam of Foot Robert Grover MD completed EKG Robert Grover MD complet ed SNOMED-CT: [id number] Current Medications Documented Robert Grover MD completed SNOMED-CT: 289137007 Smoking Cessation Counseling Robert Grover MD completed SNOMED-CT: [id number] Physical Exam, Performed: Pulse Exam of Foot Robert Grover MD completed EKG Robert Grover MD complet ed SNOMED-CT: [id number] Current Medications Documented Robert Grover MD completed EKG Robert Grover MD complet ed ePrescribe - Check t his box if eRx is used Robert Grover MD completed EKG Robert Grover MD complet ed EKG Robert Grover MD complet ed
--- OUTSIDE RECORDS SUMMARY | 2024-07-05 01:14 | XMS_ITS | Data Portability ---
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 Plan of Treatment Reminders Order Date Submit Date Provider Last Modified By Organization Details Last Modified Time Details Appointments None recorded . Lab HbA1c (hemoglo bin A1c), blood 2020 021 [facility] In-Office Order, Internal Use Only DO Not Attach Compendium DO Not Attach Compendium, Do Not Delete/merge, [id number] 11:25:33 Referral neurolog ist referral 2020 021 CHRISTIE Trevizo, [address] [address], [address], [place], [address], 10:50:07 Procedures None recorded . Surgeries None recorded . Imaging None recorded . Medication Orders omeprazo le 20 mg capsule, delayed release 2021 [facility], [address] [place], [place] [address], [place], [place], [id number], 13:01:20 metformi n 500 mg tablet 2021 [facility], [address], [place], [place], [id number], 13:01:19 glimepir mohamud 1 mg tablet 2021 [facility], [address], [place], [place], [id number], 13:01:21 Humalog Mix 75-25 KwikPen U-100 insulin 100 unit/mL subcutan eous pen 2021 [facility], [address] [place] [address] [address], [place], [place], [id number], 13:01:21 spironol actone 50 mg tablet 2021 [facility], [address] [place] [address] , [address], [place], [place], [id number], 13:01:16 tamsulos in 0.4 mg capsule 2021 [facility], [address] [place] [address] , [address], [place], [place], [id number], 13:01:15 ezetimib e 10 mg tablet 2021 [facility], [address] [place] [address] , [address], [place], [place], [id number], 2 13:01:17 simvasta tin 20 mg tablet 2021 [facility], [address] [place] [address] , [address], [place], [place], [id number], 2 13:01:21 furosemi de 40 mg tablet 2021 [facility], [address] [place] [address] , [address], [place], [place], [id number], 13:01:19 levothyr oxine 25 mcg tablet 2021 [facility], [address] [place] [address] , [address], [place], [place], [id number], 13:01:15 Vitamin B-12 1,000 mcg tablet 2021 022 [facility], [address] [place] [address] , [address], [place], [place], [id number], 13:01:20 Bactrim DS 800 mg-160 mg tablet 2020 [email or web address], [address] [place] [address] , [address], [place], [place], [id number], 10:04:20 Patient TargetsNo targets recorded. Patient Instructions Encounter Date Encounter Id Patient Instructions Last Modified By Organization Details Last Modified Time 12/11/2020 [id number] dementia: care instructions [facility] Not available 12/11/2020 16:02:55 helping A person with dementia: care instructions [facility] Not available 12/11/2020 16:02:56 schizophrenia: care instructions [facility] Not available 12/11/2020 16:02:55 learning about high blood pressure [facility] Not available 12/11/2020 16:02:56 high cholesterol : care instructions [facility] Not available 12/11/2020 16:02:56 03/18/2021 [id number] leg and ankle edema: care instructions si Not available 03/18/2021 11:33:56 schizophrenia: care instructions [facility] Not available 03/18/2021 11:33:56 learning about high blood pressure [facility] Not available 03/18/2021 11:33:57 hypothyroidism: care instructions [facility] Not available 03/18/2021 11:33:56 high cholesterol : care instructions [facility] Not available 03/18/2021 11:33:56 06/13/2021 [id number] schizophrenia: care instructions sieh Not available 06/13/2021 13:00:35 learning about high blood pressure j[facility]ie[facility] Not available 06/13/2021 13:00:35 high cholesterol : care instructions sieh Not available 06/13/2021 13:00:36 07/23/2021 [id number] schizophrenia: care instructions si Not available 07/23/2021 16:06:50 high cholesterol : care instructions sieh Not available 07/23/2021 16:06:49 Reason for Referral Neurologist Referral for On examination - disorientated Referring Physician: Dagoberto Rico, Internal Medicine, Encounter Date: 12/11/2020 Results Created Date Observation Date Name Description Value Unit Range Abnormal Flag Note LastModifiedBy Organization Detail LastModifiedTime 12/12/19 21 12/11/2020 HbA1c (hemo globi n A1c), blood HbA1c 6.1% Not Available In-Office Order Internal Use Only DO Not Attach Compendium DO Not Attach Compendium, Do Not Delete/merge, [id number] 12/11/2020 15:53:49 11/06/19 21 11/05/2020 XR, hip + pelvi s, unila teral No observ ation record ed. [facility] (One Call Scheduling) [address] [place], [address], 11/23/2020 13:03:23 11/06/19 21 11/05/2020 XR, knee No observ ation record ed. [facility] (One Call Scheduling) [address] [place], [address], 11/23/2020 13:03:23 11/06/19 21 11/05/2020 CT, hip, w/o contr ast No observ ation record ed. [facility] (One Call Scheduling) [address] [place], [address], 11/23/2020 13:03:24 11/06/19 21 11/05/2020 XR, knee No observ ation record ed. [email or web address] [address] [place], [address], 11/23/2020 13:03:24 11/07/19 21 11/05/2020 MRI, knee, w/o contr ast No observ [facility] [address] [place], [address], 11/08/2020 12:54:48 12/09/19 21 12/08/2020 XR, knee, 3 view No observ ation record ed. [facility] (One Call Scheduling) [address] [place], [address], 12/10/2020 14:33:59 12/09/19 21 12/08/2020 CT, head, w/o contr ast No observ ation record ed. [facility] (One Call Scheduling) [address] [place], [address], 12/10/2020 14:33:38 11/16/19 22 11/15/2021 CT, head + brain , w/o contr ast No observ ation record ed. [facility] On Lab Orders [address] [place], [address], 11/18/2021 09:39:17 11/26/19 22 11/25/2021 XR, knee, 3 view No observ ation record ed. [facility] On Lab Orders [address] [place], [address], 11/25/2021 10:32:38 12/16/19 22 12/15/2021 XR, knee, 1 or 2 view No observ ation record ed. [facility] On Lab Orders [address] [place], [address], 12/16/2021 19:09:08 12/27/19 22 12/26/2021 imagi ng/di agnos tic resul t No observ ation record ed. [facility] Orders [address] [place], [address], 12/27/2021 18:41:44 08/30/19 23 08/29/2022 CT, head, w/o contr ast No observ ation record ed. [address] [place], [address], 08/29/2022 17:46:00 08/30/19 23 08/29/2022 XR, pelvi s No observ ation record ed. [address] [place], [address], 08/29/2022 17:46:23 08/30/19 23 08/29/2022 XR, lumba r spine No observ ation record ed. [address] [place], [address], 08/29/2022 17:46:59 08/30/19 23 08/29/2022 MRI, lumba r spine , w/o contr ast No observ ation record ed. [address] [place], [address], 08/29/2022 17:47:18 06/26/19 24 06/26/2023 XR, elbow , 2 view No observ ation record ed. [email or web address] [facility] [address] [place], [address], 06/30/2023 16:32:57 09/08/19 24 09/08/2023 XR, knee No observ ation record ed. [email or web address] [facility] [address] [place], [address], 09/14/2023 16:46:58 11/01/19 24 10/31/2023 CT, abdom en + pelvi s, w/ contr ast No observ ation record ed. [email or web address] [facility] [address] [place], [address], 05/04/2024 17:57:34 Result Notes None recorded. Problems Name Problem SNOMED Code Status Onset Date Resolution Date Notes Provider Name and Address Organization Details Recorded Time Dissociative confusion 365780520 Active Not Available [facility] 2 15:38:17 Dementia 91183518 Active Not Available [facility] 2 15:38:17 Essential hypertension 47891877 Active Not Available [facility] 2 15:38:17 Edema of lower extremity 648496486 Active Not Available [facility] 2 15:38:17 Mucous membrane dryness 812152388 Active Not Available [facility] 2 15:38:17 Diabetes mellitus 39021430 Active Not Available [facility] 2 15:38:17 Schizophrenia 67876560 Active Not Available [facility] 2 15:38:17 Hyperlipidemi a 55183056 Active Not Available [facility] 2 15:38:17 Cobalamin deficiency 996565444 Active Not Available [facility] 2 15:38:17 Ankle edema 20659949 Active Not Available [facility] 2 15:38:17 Notes:Some problems listed i n Documents: #[id number], #[id number], #[id number] could not be added to this patient's chart. Please review these documents and add these problems to the patient's chart manually as needed. Problem Notes None recorded. Procedures Surgical History None recorded. Imaging Results Imaging Date Name Status LastModified by [facility] Details LastModified Time 11/05/2020 XR, hip + pelvis, unilateral completed [facility] ([facility] Call Scheduling) [address] [place], [address], 11/23/2020 13:03:23 11/05/2020 XR, knee completed [facility] (One Call Scheduling) [address] [place], [address], 11/23/2020 13:03:23 11/05/2020 CT, hip, w/o contrast completed [facility] (One Call Scheduling) [address] [place], [address], 11/23/2020 13:03:24 11/05/2020 XR, knee completed [facility] (One Call Scheduling) [address] [place], [address], 11/23/2020 13:03:24 11/05/2020 MRI, knee, w/o contrast completed [facility] (Radiology) [address] [place], [address], 11/08/2020 12:54:48 12/08/2020 XR, knee, 3 view completed [facility] (One Call Scheduling) [address] [place], [address], 12/10/2020 14:33:59 12/08/2020 CT, head, w/o contrast completed [facility] (One Call Scheduling) [address] [place], [address], 12/10/2020 14:33:38 11/15/2021 CT, head + brain, w/o contrast completed [facility] [address] [place], [address], 11/18/2021 09:39:17 11/25/2021 XR, knee, 3 view completed [facility] [address] [place], [address], 11/25/2021 10:32:38 12/15/2021 XR, knee, 1 or 2 view completed [facility] [address] [place], [address], 12/16/2021 19:09:08 12/26/2021 imaging/diagnos tic result completed [facility] [address] [place], [address], 12/27/2021 18:41:44 08/29/2022 CT, head, w/o contrast completed [address] [place], [address], 08/29/2022 17:46:00 08/29/2022 XR, pelvis completed [address] [place], [address], 08/29/2022 17:46:23 08/29/2022 XR, lumbar spine completed [address] [place], [address], 08/29/2022 17:46:59 08/29/2022 MRI, lumbar spine, w/o contrast completed [address] [place], [address], 08/29/2022 17:47:18 06/26/2023 XR, elbow, 2 view completed [email or web address] [facility] [address] [place], [address], 06/30/2023 16:32:57 09/08/2023 XR, knee completed [email or web address] [facility] [address] [place], [address], 09/14/2023 16:46:58 10/31/2023 CT, abdomen + pelvis, w/ contrast completed [email or web address] [facility] [address] [place], [address], 05/04/2024 17:57:34 Procedure Notes None recorded. Medical Equipment None Reported. Allergies Allergen ID Allergen Name Allergen Category Reaction Reaction Severity Criticality Documentation Date Start Date Code Code System Note Provider Name and Address Organization Details Recorded Time 622597 Substance with sulfonami de structure and antibacte rial mechanism of action (substanc e) medicatio n confusion severe Not available 01/02/20212020 21462 8003 SNOMED Not Available Not Available Not Available Medications Name Sig Start Date Stop Date Status Note LastModified by Organization Details LastModified Time Prescript ion - Prior Authorshanona tibharti Request 06/17 completed Not Available Not Available Not Available celecoxib 200 mg capsule 03/12 completed Not Available Not Available Not Available fluoxetin e 40 mg capsule active Not Available Not Available Not Available cyclobenz aprine 10 mg tablet TAKE 1 TABLET BY MOUTH THREE TIMES A DAY NEEDED active Not Available Not Available No t Available furosemid e 40 mg tablet TAKE 1 TABLET BY MOUTH DAILY NEEDED FOR WATER RETENTIO N IN LEGS active Not Available Not Available No t Available metformin 500 mg tablet TAKE 1 TABLET BY MOUTH EVERY MORNING WITH BREAKFAS T AND 2 TABLET DAILY WITH SUPPER active Not Available Not Available No t Available bupropion HCl SR 150 mg tablet,12 hr sustained -release active Not Available Not Available Not Available Vitamin B-12 1,000 mcg/mL injection solution Inject 1 mL as needed by intramus cular route for 1 day. 04/03 completed Not Available Not Available Not Available niacin ER 1,000 mg tablet,ex tended release 24 hr TAKE 1 TABLET BY MOUTH DAILY 2021 active Not Available Not Available Not Avai lable azithromy steve 250 mg tablet 06/17 completed Not Available Not Available Not Available ibuprofen 800 mg tablet TAKE 1 TABLET BY MOUTH EVERY 8 HOURS NEEDED FOR PAIN CONTROL WITH FOOD 06/29 completed Not Available Not Available Not Available risperido ne 4 mg tablet active Not Available Not Available Not Available hydrocodo ne 5 mg-acetam inophen 325 mg tablet TAKE 1 TABLET BY MOUTH EVERY 6 HOURS NEEDED 03/18 completed Not Available Not Available Not Available clonazepa m 0.5 mg tablet 06/13 completed Not Available Not Available Not Available potassium chloride ER 10 mEq tablet,ex tended release TAKE 1 TABLET BY MOUTH DAILY 04/03 completed Not Available Not Available Not Available acetamino phen 300 mg-codein e 30 mg tablet 03/12 completed Not Available Not Available Not Available allopurin ol 100 mg tablet TAKE 1 TABLET BY MOUTH DAILY DIRECTED active Not Available Not Available No t Available tramadol 50 mg tablet active Not Available Not Available Not Available quetiapin e 100 mg tablet Take 1 tablet every day by oral route for 30 days. active Not Available Not Available No t Available risperido ne 3 mg tablet active Not Available Not Available Not Available triamcino lone acetonide 0.1 % topical cream APPLY A THIN LAYER TO THE AFFECTED AREA(S) BY TOPICAL ROUTE 2 TIMES PER DAY for itching. 01/22 completed Not Available Not Available Not Available spironola ctone 25 mg tablet active Not Available Not Available No t Available glimepiri de 2 mg tablet TAKE 1 TABLET BY MOUTH DAILY 06/17 completed Not Available Not Available Not Available levothyro xine 25 mcg tablet TAKE 1 TABLET BY MOUTH DAILY active Not Available Not Available No t Available glimepiri de 1 mg tablet Take 1 tablet every day by oral route as directed for 30 days. active Not Available Not Available No t Available pantopraz ole 20 mg tablet,de layed release TAKE 1 TABLET BY MOUTH DAILY 12/25 completed Not Available Not Available Not Available meloxicam 7.5 mg tablet 08/26 completed Not Available Not Available Not Available oxycodone -acetamin ophen 5 mg-325 mg tablet 03/12 completed Not Available Not Available Not Available tamsulosi n 0.4 mg capsule TAKE 1 CAPSULE BY MOUTH EVERY NIGHT AT BEDTIME active Not Available Not Available No t Available Triple Antibioti c 3.5 mg-400 unit-5,00 0 unit/gram topical ointment Apply 1 applicat ion every day by topical route as directed for 10 days. 03/12 completed Not Available Not Available Not Available Humalog U-100 Insulin 100 unit/mL subcutane ous solution Inject 16 units every day by subcutan eous route in the morning for 30 days. 06/17 completed Not Available Not Available Not Available meclizine 25 mg tablet 03/18 completed Not Available Not Available Not Available hydrocodo ne 7.5 mg-acetam inophen 325 mg tablet TAKE 1 TABLET BY MOUTH EVERY 6 HOURS NEEDED FOR PAIN 03/18 completed Not Available Not Available Not Available cephalexi n 500 mg capsule TAKE 1 CAPSULE BY MOUTH EVERY 6 HOURS FOR 7 DAYS 03/18 completed Not Available Not Available Not Available simvastat in 20 mg tablet TAKE 1 TABLET BY MOUTH DAILY AFTER DINNER active Not Available Not Available No t Available nystatin 100,000 unit/gram topical cream APPLY TO THE AFFECTED AREA(S) BY TOPICAL ROUTE 2 TIMES PER DAY 01/22 completed Not Available Not Available Not Available lidocaine 5 % topical patch active Not Available Not Available Not Available benztropi ne 1 mg tablet active Not Available Not Available Not Available omeprazol e 20 mg capsule,d elayed release TAKE 1 CAPSULE BY MOUTH DAILY BEFORE A MEAL active Not Available Not Available No t Available thiothixe ne 2 mg capsule active Not Available Not Available Not Available aspirin 81 mg tablet Take 1 tablet every day by oral route in the morning. active Not Available Not Available No t Available mupirocin 2 % topical ointment active Not Available Not Available Not Available furosemid e 20 mg tablet Take 1 tablet every day by oral route as directed for 30 days. 02/25 completed Not Available Not Available Not Available ibuprofen 600 mg tablet active Not Available Not Available Not Available polyethyl sandra glycol 3350 17 gram/dose oral powder Take 1 g as needed by oral route as directed for 30 days. 08/26 completed Not Available Not Available Not Available clotrimaz ole 1 % topical cream 06/29 completed Not Available Not Available Not Available naproxen 500 mg tablet TAKE 1 TABLET BY MOUTH DAILY needed. active Not Available Not Available No t Available spironola ctone 50 mg tablet TAKE 1 TABLET BY MOUTH DAILY active Not Available Not Available No t Available Vitamin B-12 1,000 mcg tablet Take 1 tablet every day by oral route as directed for 90 days. 2021 active Not Available Not Available Not Avai lable amoxicill in 500 mg-potass ium clavulana te 125 mg tablet Take 1 tablet every 12 hours by oral route with meals for 7 days. 05/31 completed Not Available Not Available Not Available Bactrim DS 800 mg-160 mg tablet Take 1 tablet every 12 hours by oral route after meals for 10 days. 03/18 completed Not Available Not Available Not Available enoxapari n 30 mg/0.3 mL subcutane ous syringe 01/22 completed Not Available Not Available Not Available Novolog Mix 70-30 FlexPen U-100 Insulin 100 unit/mL subcutane ous pen 03/18 completed Not Available Not Available Not Available ezetimibe 10 mg tablet TAKE 1 TABLET BY MOUTH EVERY EVENING AFTER DINNER active Not Available Not Available No t Available bupropion HCl XL 300 mg 24 hr tablet, extended release active Not Available Not Available Not Available Alcohol Prep Pads USE BEFORE TESTING BLOOD SUGAR AND BEFORE GIVING INSULIN active Not Available Not Available No t Available Novofine Autocover 30 gauge x 1/3 needle active Not Available Not Available Not Available ProAir HFA 90 mcg/actua tion aerosol inhaler 06/17 completed Not Available Not Available Not Available UltiCare Pen Needle 31 gauge x 16 USE WITH INSULIN INJECTIO NS TWICE A DAY 2021 active Not Available Not Available Not Avai lable Lantus Solostar U-100 Insulin 100 unit/mL (3 mL) subcutane ous pen active Not Available Not Available Not Available Humalog Mix 75-25 KwikPen U-100 insulin 100 unit/mL subcutane ous pen INJECT 20 UNITS SUBCUTAN EOUSLY TWICE A DAY WITH FOOD active Not Available Not Available No t Available Humalog KwikPen (U-100) Insulin 100 unit/mL subcutane ous Inject 15 units twice a day by subcutan eous route for 30 days. 08/26 completed Not Available Not Available Not Available Onglyza 5 mg tablet Take 1 tablet every day by oral route for 30 days. 04/03 completed D/C'd. Not covered by pts insuranc e. Not Available Not Available Not Available niacin ER 1,000 mg tablet,ex tended release one tablet daily 2014 active Not Available Not Available Not Avai lable OneTouch Verio test strips USE TO CHECK BLOOS SUGAR THREE TIMES DAILY active Not Available Not Available No t Available Saphris (black may) 10 mg sublingua l tablet active Not Available Not Available Not Available potassium chloride ER 20 mEq tablet,ex tended release 11/06 completed Not Available Not Available Not Available OneTouch Verio Flex Meter active Not Available Not Available Not Available OneTouch Ultra Blue Test Strip USE TO TEST THREE TIMES DAILY. active Not Available Not Available No t Available OneTouch Delica Plus Lancet 33 gauge USE TO TEST BLOOD SUGAR THREE TIMES DAILY active Not Available Not Available No t Available OneTouch Delica Plus Lancing Device kit active Not Available Not Available Not Available OneTouch Delica Plus Lancet 30 gauge USE TO CHECK BLOOD SUGAR THREE TIMES DAILY active Not Available Not Available No t Available Flucelvax Quad (PF) 60 mcg (15 mcg x 4)/0.5 mL IM syringe ADM 0.5ML IM UTD active Not Available Not Available No t Available Vitals Date Recorded Body height Body mass index (BMI) Body weight Body temperature Heart rate Oxygen saturation Oxygen saturation in Arterial blood by Pulse oximetry Systolic blood pressure Diastolic blood pressure Provider Name and Address Organization Details Last Updated DateTime 1 164.47 cm 28 kg/m2 56753.9 3 g 97.2 [degF] 78 /min 97 % 97 % 104 mm[Hg] 60 mm[Hg] Minerva Arteaga MA [facility] 1 15:45:39 Date Recorded Body height Oxygen saturation Oxygen saturation in Arterial blood by Pulse oximetry Heart rate Body mass index (BMI) Body weight Body temperature Provider Name and Address Organization Details Last Updated DateTime 1 164.47 cm 97 % 97 % 93 /min 27.5 kg/m2 67883.1 5 g 99.8 [degF] Eric Cedeño MA [facility] 1 15:32:06 Date Recorded Body height Body mass index (BMI) Body weight Body temperature Oxygen saturation Oxygen saturation in Arterial blood by Pulse oximetry Heart rate Systolic blood pressure Diastolic blood pressure Provider Name and Address Organization Details Last Updated DateTime 1 164.47 cm 27.7 kg/m2 02504.7 4 g 97.8 [degF] 97 % 97 % 75 /min 94 mm[Hg] 58 mm[Hg] Eric Cedeño MA [facility] 1 10:15:17 Date Recorded Body height Body mass index (BMI) Body weight Body temperature Oxygen saturation Oxygen saturation in Arterial blood by Pulse oximetry Heart rate Systolic blood pressure Diastolic blood pressure Provider Name and Address Organization Details Last Updated DateTime 2 164.47 cm 28.5 kg/m2 30579.9 8 g 97.6 [degF] 95 % 95 % 81 /min 110 mm[Hg] 64 mm[Hg] Eric Cedeño MA [facility] 2 12:30:40 Date Recorded Body height Body mass index (BMI) Body weight Heart rate Oxygen saturation Oxygen saturation in Arterial blood by Pulse oximetry Systolic blood pressure Diastolic blood pressure Provider Name and Address Organization Details Last Updated DateTime 2 164.47 cm 28.7 kg/m2 38853.3 g 88 /min 96 % 96 % 110 mm[Hg] 68 mm[Hg] Francine Souza [facility] 2 15:42:18 Social History Question Answer Notes LastModified by Organizat ion Details LastModified Time Tobacco Smoking Status [facility] 10:13:19 What Is Your Level Of Alcohol Consumption? None [email or web address] Information not available 12/11/2020 What Was The Date Of Your Most Recent Tobacco Screening? 07/23/2021 [email or web address] Information not available 07/23/2021 How Many Years Have You Smoked Tobacco? 35 [email or web address] Information not available 04/04/2014 Sex: Unknown Functional Status None recorded. Mental Status None recorded. Family History Nothing Reported. Medical History Condition Response Coronary Artery Disease N Other N Atrial Fibrillation N High Blood Pressure N Thyroid Problems N Kidney or Bladder Problems N Depression Y COPD N Blood Clots N GI Problems N Skin Problems N Anemia N Heart Attack ([place]) N Diabetes Y Anxiety Disorder N Muscle, Joint, or Bone Problems N Seizures/Epilepsy N Acid Reflux (GERD) N Cancer N Stroke N Allergies N Asthma N High Cholesterol N Hepatitis N Liver Disease N Headaches N Osteoporosis N Heart Failure N Immunizations Vaccine Type Date Status Note Provider Nam e and Address Organization Details Recorded Time COVID-19, mRNA, LNP-S, PF, 100 mcg/0.5mL dose or 50 mcg/0.25mL dose 1 completed Not Available [facility] 09/01/2022 18:39:34 Influenza, split virus, quadrivalent, preservative 7 completed Not Available [facility] 05/14/2019 02:34:25 Past Encounters Encounter ID Performer Location Encounter Start Date Encounter Closed Date Diagnosis/Indication Diagnosis SNOMED-CT Code Diagnosis ICD10 Code Diagnosis Note [id number] MD Adi Nolan (Adult Med) [facility] [place] [address] 04/04/2014 09:45:33 04/04/2014 11:19:05 Mucous membrane dryness [id number] Diabetes mellitus 59854510 Schizophrenia 57626378 Hyperlipidemia 73466597 [id number] BETHEL Gomez (Adult Med) [address] [place] [address] [phone] 0 05/16/2014 12:05:34 05/16/2014 13:57:26 Ankle edema 19636404 Diabetes mellitus 99140084 Hyperlipidemia 72246190 Schizophrenia 54629613 [id number] JOSE A Kenney (Adult Med) [address] [place] [address] 78655-620 0 09/05/2014 15:43:23 09/05/2014 18:05:50 Dissociative confusion 529391334 Dementia 18754033 Diabetes mellitus 36806914 Essential hypertension 85644451 Patient is no longer hypertensi ve. Schizophrenia 21771050 Edema of l ower extremity 427739064 [id number] MD Adi Nolan (Adult Med) [address] [place] [address] 65159-705 0 02/20/2015 11:38:30 02/20/2015 17:55:50 Diabetes mellitus 05873481 E13.65 Hyperlipidemia 72399587 E78.5 Ankle edema 47477778 R60 .0 Dissociati ve confusion 518878028 F44.89 Schizophrenia 92008198 F 20.9 Ex-smoker 8623636 Z87.89 1 Cobalamin deficiency 190 510869 E53.8 Administra tion of influenza vaccine 22021485 Z23 Screening for malignant neoplasm of colon 172964416 Z12.11 [id number] MD Adi Nolan (Adult Med) [address] [place] [address] 66584-987 0 05/21/2015 12:17:54 05/21/2015 12:54:24 Diabetes mellitus 68494265 E13.65 Ankle edema 65741957 R60 .0 Cobalamin deficiency 190 385362 E53.8 Ex-smoker 0631543 Z87.89 1 Hyperlipidemia 75428868 E78.5 Schizophrenia 02780763 F 20.9 [id number] Aaron Joshi (Adult Med) [address] [place] [address] 31519-965 0 08/20/2015 10:23:17 08/20/2015 11:36:57 Diabetes mellitus 62202048 E13.65 Ankle edema 41500383 R60 .0 Cobalamin deficiency 190 374096 E53.8 D51.1 Essential hypertension 66632754 I10 Patient is no longer hypertensi ve. Ex-smoker 3053463 Z87.89 1 Hyperlipidemia 70443248 E78.5 Schizophrenia 12422648 F 20.9 [id number] Aaron Joshi (Adult Med) [address] [place] [address] 50640-151 0 11/29/2015 10:13:31 11/29/2015 11:49:46 Diabetes mellitus 36566615 E13.65 Cobalamin deficiency 190 042775 E53.8 D51.1 [id number] MD Adi Nolan (Adult Med) [address] [place] [address] 83365-490 0 04/03/2016 12:20:01 04/03/2016 13:13:33 Diabetes mellitus 58705939 E13.65 Essential hypertension 40758878 I10 Patient is no longer hypertensi ve. Hyperlipidemia 77303758 E78.5 Edema of l ower extremity 049761051 R60.0 Dissociati ve confusion 298375552 F44.89 Cobalamin deficiency 190 721695 E53.8 D51.1 Acid reflux 286189415 K2 1.9 Benign pro static hyperplasia 330229051 N40.0 [id number] MD Adi Nolan (Adult Med) [address] [place] [address] 65432-527 0 04/14/2016 11:31:57 04/14/2016 12:14:08 Diabetes mellitus 94161659 E13.65 Contact dermatitis 92425 004 L25.9 Essential hypertension 63530301 I10 Patient is no longer hypertensi ve. Schizophrenia 77215381 F 20.9 [id number] MD Adi Nolan (Adult Med) [address] [place] [address] 23528-317 0 07/07/2016 11:42:33 07/07/2016 15:49:07 Diabetes mellitus 10049967 E13.65 Essential hypertension 41188319 I10 Patient is no longer hypertensi ve. Schizophrenia 78905599 F 20.9 He has been treated bt psychiatri st on the regular basis. Hyperlipidemia 95826719 E78.5 Dissociati ve confusion 224254502 F44.89 Edema of l ower extremity 925512197 R60.0 Benign pro static hyperplasia 099629016 N40.0 [id number] MD Adi Nolan (Adult Med) [address] [place] [address] [phone] 0 10/10/2016 09:52:53 10/10/2016 18:11:17 Diabetes mellitus 80336241 E13.65 Diabetic diet, exercise, lose weight. He has had annual eye ex. Essential hypertension 06751620 I10 Patient is no longer hypertensi ve. Schizophrenia 91350734 F 20.9 He has been treated bt psychiatri st on the regular basis. Hyperlipidemia 83102239 E78.5 Diabetic , low saturated fat diet, exercise and lose weight. Dementia 10622535 F03.90 Under the care of his psychiatri st. Dissociati ve confusion 468494184 F44.89 Under the care of his psychiatri st. Cobalamin deficiency 190 500967 E53.8 D51.1 On B 12 pill daily. Edema of l ower extremity 371297430 R60.0 No edema today. Acid reflux 051439243 K2 1.9 Stable. Benign pro static hyperplasia 786939774 N40.0 No symptoms. [id number] MD Adi Nolan (Adult Med) [address] [place] [address] 52814-930 0 01/27/2017 10:37:28 01/27/2017 12:39:12 Cellulitis of lower limb 509114067 L03.119 On cephalexin 500mg every 6 hours. Edema of l ower extremity 715134325 R60.0 Right leg edematous. Cobalamin deficiency 190 986001 E53.8 D51.1 On B 12 pill daily. Hyperlipidemia 08627958 E78.5 Diabetic , low saturated fat diet, exercise and lose weight. Schizophrenia 15179002 F 20.9 He has been treated bt psychiatri st on the regular basis. Diabetes mellitus 381129 09 E13.620 On lispro 75/25 100 unit/ml 15 units subcutaneo us twice/day. [id number] MD Adi Nolan (Adult Med) [address] [place] [address] [phone] 0 02/19/2017 10:24:05 02/24/2017 12:07:52 Diabetes mellitus 50217701 E11.9 postprandi al blood sugar today 02-19-2017 is 171 mg% , HgA1C is 7.3% in office. Cobalamin deficiency 190 510205 E53.8 D51.1 On B 12 pill daily. Hyperlipidemia 93271752 E78.5 Diabetic , low saturated fat diet, exercise and lose weight. Schizophrenia 88777484 F 20.9 [facility]. Essential hypertension 38127915 I10 Patient is no longer hypertensi ve. Administra tion of influenza vaccine 52757811 Z23 [id number] Dagoberto Rico MD [facility] (Adult Med) [address] [place] [address] [phone] 0 2017 10:23:00 2017 11:42:34 Diabetes mellitus 56114951 E11.9 postprandi al blood sugar today 02-19-2017 is 171 mg% , HgA1C is 7.3% in office. Cobalamin deficiency 190 773488 E53.8 D51.1 On B 12 pill daily. Hyperlipidemia 71873497 E78.5 Diabetic , low saturated fat diet, exercise and lose weight. Schizophrenia 96243578 F 20.9 [facility]. Essential hypertension 03612608 I10 Patient is no longer hypertensi ve. [id number] CLAIRE Méndez (Adult Med) [address] [place] [address] 91585-976 0 06/29/2017 16:24:45 06/30/2017 10:50:22 On examination - gynecomastia 555326222 N62 Lump on the left breast than the right, ? drug-induc ed? Diabetes mellitus 688806 09 E11.9 postprandi al blood sugar today 02-19-2017 is 171 mg% , HgA1C is 7.3% in office. [id number] MD Adi Nolan (Adult Med) [address] [place] [address] [phone] 0 08/14/2017 16:28:49 08/17/2017 11:07:42 Cobalamin deficiency 057250874 E53.8 D51.1 On B 12 pill daily. Dementia 41387493 F03.90 Under the care of his psychiatri . Hyperlipidemia 61609036 E78.5 Diabetic , low saturated fat diet, exercise and lose weight. On simvastati n. and Zetia. Schizophrenia 16131096 F 20.9 He has been treated by psychiatrestephanie ramirez on the regular basis. Essential hypertension 99569498 I10 Patient is no longer hypertensi ve. Diabetes mellitus 995574 09 E11.9 postprandi al blood sugar today 02-19-2017 is 171 mg% , HgA1C is 7.3% in office. On insulin shot and metformin. Ankle edema 58109178 R60 .0 On furosemide and spironolac tone. [id number] MD Adi Nolan (Adult Med) [address] [place] [address] [phone] 0 10/05/2017 11:55:28 10/06/2017 10:05:33 Type 2 diabetes mellitus 51702242 E11.9 Diabetic diet, well controlled , his random blood sugar today is 122 mg%. his HgA1C was 6.7 % on 06-29-2017 , he is on his DM medication s and insulin shots faithfully . Under the care of his endocrinol ogist. Diabetes mellitus 867592 09 E11.9 postprandi al blood sugar today 02-19-2017 is 171 mg% , HgA1C is 7.3% in office. On insulin shot and metformin. Dyslipidem ia due to type 2 diabetes mellitus 7692406722 02 E78.5 Under the care of his endocrinol ogist. Benign pro static hyperplasia 751112034 N40.0 No symptoms. On examina tion - edema of legs 910958509 R60.0 Osteoarthr itis of knee 666073336 M17.12 No objection for the left knee operation, Dr. Hitesh Hinton's office will be contacted. [id number] MD Adi Nolan (Adult Med) [address] [place] [address] [phone] 0 12/25/2017 15:05:05 12/29/2017 11:05:57 Tinea corporis 09382467 B35.4 Discussed with patient. Type 2 christine betes mellitus without complication 474437628 E11.9 Diabetes mellitus 889806 09 E11.9 [facility] blood sugar today 02-19-2017 is 171 mg% , HgA1C is 7.3% in office. On insulin shot and metformin. Under the care of his endocrinol ogist. Dyslipidem ia due to type 2 diabetes mellitus 0800879454 02 E78.5 Under the care of his endocrinol ogist. Acid reflux 171552394 K2 1.9 Stable. Benign pro static hyperplasia 729326844 N40.0 No symptoms. [id number] Dagoberto Rico MD [facility] (Adult Med) [address] [place] [address] 21425-733 0 01/22/2018 11:22:21 01/25/2018 13:00:46 Open wound of lower leg 682538028 S81.801A Wound care instructio ns given, he understood . Cobalamin deficiency 190 574698 E53.8 D51.1 On B 12 pill daily. Dementia 55140135 F03.90 Under the care of his psychiatri st. Hyperlipidemia 83104286 E78.5 Diabetic , low saturated fat diet, exercise and lose weight. On simvastati n. and Zetia. Schizophrenia 40166237 F 20.9 [facility]. Essential hypertension 96000721 I10 Patient is no longer hypertensi ve. Diabetes mellitus 583523 09 E11.9 [facility] blood sugar today 02-19-2017 is 171 mg% , HgA1C is 7.3% 06-29-2017 in office. On insulin shot and metformin. Under the care of his endocrinol ogist. Non fasting blood sugar is 156 mg%, patient is informed. HgA1c is 6.8% 01-22-2018 patient in formed. also on humalog 16 units /am, 12 units /PM. Dyslipidem ia due to type 2 diabetes mellitus 8077919532 02 E78.5 Under the care of his endocrinol ogist. Acid reflux 626130401 K2 1.9 Stable. On examina tion - edema of legs 538645437 R60.0 [id number] [facility] [address] [place] [address] [phone] 0 2018 09:51:16 2018 16:02:40 Cobalamin deficiency 832147009 E53.8 D51.1 On B 12 pill daily. Hyperlipidemia 70496172 E78.5 Diabetic , low saturated fat diet, exercise and lose weight. On simvastati n. and Zetia. Schizophrenia 38959748 F 20.9 He has been treated by psychiatrestephanie ramirez on the regular basis. Essential hypertension 30593877 I10 Patient is no longer hypertensi ve. Diabetes mellitus 903822 09 E11.9 postprandi al blood sugar today 02-19-2017 is 171 mg% , HgA1C is 7.3% 06-29-2017 in office. On insulin shot and metformin. Under the care of his endocrinol ogist. Non fasting blood sugar is 156 mg%, patient is informed. HgA1c is 6.8% 01-22-2018 patient in formed. also on humalog 16 units /am, 12 units /PM. On examina tion - edema of legs 197041385 R60.0 No edema of legs today. Dyslipidem ia due to type 2 diabetes mellitus 6525591329 02 E78.5 Under the care of his endocrinol ogist. Acid reflux 129125697 K2 1.9 Stable. Benign pro static hyperplasia 031371141 N40.0 No symptoms. Chronic constipation 236 357455 K59.09 [id number] CLAIRE Méndez (Adult Med) [address] [place] [address] 06/17/2018 11:40:46 06/18/2018 09:21:13 Type 2 diabetes mellitus 96498742 E11.9 Diabetic diet, well controlled , his random blood sugar today is 122 mg%. his HgA1C was 6.7 % on 06-29-2017 , he is on his DM medication s and insulin shots faithfully . Under the care of his endocrinol ogist. Cobalamin deficiency 190 780999 E53.8 D51.1 On B 12 pill daily. Essential hypertension 19399295 I10 Patient is no longer hypertensi ve. On examina tion - edema of legs 055162354 R60.0 No edema of legs today. Benign pro static hyperplasia 879623998 N40.0 No symptoms. [id number] MD Adi Nolan (Adult Med) [address] [place] [address] [phone] 0 08/26/2018 13:43:01 08/27/2018 12:58:33 Lumbar sprain 124044375 S33.5XXA Has walker at home. Cobalamin deficiency 190 975209 E53.8 D51.1 On B 12 pill daily. Essential hypertension 91817570 I10 Patient is no longer hypertensi ve. Diabetes mellitus 679668 09 E11.9 postprandi al blood sugar today 02-19-2017 is 171 mg% , HgA1C is 7.3% 06-29-2017 in office. On insulin shot and metformin. Under the care of his endocrinol ogist. Non fasting blood sugar is 156 mg%, patient is informed. HgA1c is 6.8% 01-22-2018 patient in formed. also on humalog 16 units /am, 12 units /PM. Acid reflux 749220433 K2 1.9 Stable. Benign pro static hyperplasia 029805265 N40.0 No symptoms. On examina tion - edema of legs 448279827 R60.0 No edema of legs today. Dyslipidem ia due to type 2 diabetes mellitus 6338550029 02 E78.5 Under the care of his endocrinol ogist. [id number] MD Adi Nolan (Adult Med) [address] [place] [address] [phone] 0 10/15/2018 10:10:44 10/18/2018 09:34:52 Diabetes mellitus 69933301 E11.9 postprandi al blood sugar today 02-19-2017 is 171 mg% , HgA1C is 7.3% 06-29-2017 in office. On insulin shot and metformin. Under the care of his endocrinol ogist. Non fasting blood sugar is 156 mg%, patient is informed. HgA1c is 6.8% 01-22-2018 patient in formed. also on humalog 16 units /am, 12 units /PM. Gout 81295064 M10.9 Avoid seafood, alcohol and red meats if possible. Type 2 christine betes mellitus 44429147 E11.9 Diabetic diet, well controlled , his random blood sugar today is 122 mg%. his HgA1C was 6.7 % on 06-29-2017 , he is on his DM medication s and insulin shots faithfully . Under the care of his endocrinol ogist. Dyslipidem ia due to type 2 diabetes mellitus 0122197143 02 E78.5 Under the care of his endocrinol ogist. Acid reflux 979847104 K2 1.9 Stable. On examina tion - edema of legs 423701251 R60.0 No edema of legs today. Benign pro static hyperplasia 192662718 N40.0 No symptoms. [id number] Dagoberto Rico MD [facility] (Adult Med) [address] [place] [address] [phone] 0 01/06/2019 16:15:14 01/07/2019 16:32:25 Acute bronchitis 72826788 J20.9 Edema of l ower extremity 068366580 R60.0 Right leg edematous. Essential hypertension 90761473 I10 Patient is no longer hypertensi ve. Diabetes mellitus 217730 09 E11.9 postprandi al blood sugar today 02-19-2017 is 171 mg% , HgA1C is 7.3% 06-29-2017 in office. On insulin shot and metformin. Under the care of his endocrinol ogist. Non fasting blood sugar is 156 mg%, patient is informed. HgA1c is 6.8% 01-22-2018 patient in formed. also on humalog 16 units /am, 12 units /PM. Under the care of his endocrinol ogist. On examina tion - edema of legs 534006718 R60.0 No edema of legs today. Acid reflux 057321847 K2 1.9 Stable. Dyslipidem ia due to type 2 diabetes mellitus 2699189458 02 E78.5 Under the care of his endocrinol ogist. Benign pro static hyperplasia 330927110 N40.0 No symptoms. Gout 58153395 M10.9 Avoid seafood, alcohol and red meats if possible. Cobalamin deficiency 190 773384 E53.8 D51.1 On B 12 pill daily. [id number] [facility] [address] [place] [address] 47171-537 0 03/11/2019 16:50:50 03/14/2019 12:08:30 Venous stasis syndrome 557401203 I87.8 Negative venous doppler recently , patient informed and discussed. Screening for malignant neoplasm of colon 445299784 Z12.11 Discussed with patient ,he agreed,. [id number] Dagoberto Rico MD [facility] (Adult Med) [address] [place] [address] [phone] 0 05/31/2019 11:21:38 06/01/2019 09:39:55 Ankle edema 18740222 R60.0 On furosemide and spironolac tone. Cobalamin deficiency 190 322517 E53.8 D51.1 On B 12 pill daily. Diabetes mellitus 857608 09 E11.9 postprandi al blood sugar today 02-19-2017 is 171 mg% , HgA1C is 7.3% 06-29-2017 in office. On insulin shot and metformin. Under the care of his endocrinol ogist. Non fasting blood sugar is 156 mg%, patient is informed. HgA1c is 6.8% 01-22-2018 patient in formed. also on humalog 16 units /am, 12 units /PM. Under the care of his endocrinol ogist. Hyperlipidemia 25228061 E78.5 Diabetic , low saturated fat diet, exercise and lose weight. On simvastati n. and Zetia. [id number] Dagoberto Rico MD [facility] (Adult Med) [address] [place] [address] [phone] 0 11/07/2019 09:45:26 11/09/2019 12:38:38 Ankle edema 63020072 R60.0 On furosemide and spironolac tone. Cobalamin deficiency 190 115254 E53.8 D51.1 On B 12 pill daily. Diabetes mellitus 951895 09 E11.9 postprandi al blood sugar today 02-19-2017 is 171 mg% , HgA1C is 7.3% 06-29-2017 in office. On insulin shot and metformin. Under the care of his endocrinol ogist. Non fasting blood sugar is 156 mg%, patient is informed. HgA1c is 6.8% 01-22-2018 patient in formed. also on humalog 16 units /am, 12 units /PM. Under the care of his endocrinol ogist. Essential hypertension 20514125 I10 Patient is no longer hypertensi ve. Hyperlipidemia 43938856 E78.5 Diabetic , low saturated fat diet, exercise and lose weight. On simvastati n. and Zetia. Schizophrenia 90534054 F 20.9 [facility]. Type 2 christine betes mellitus without complication 344836680 E11.65 Acid reflux 697414681 K2 1.9 Stable. History of gout 12570153 4 Z87.39 avoid alcohol, seafood and be on low purine diet. Benign pro static hyperplasia 545322826 N40.0 No symptoms. [id number] MD Adi Nolan (Adult Med) [address] [place] [address] [phone] 0 03/09/2020 09:43:41 2020 17:21:34 Macromastia 704738831 N62 As below. Screening mammography 24 153022 Z12.31 Dementia 28273294 F03.90 [facility] Diabetes mellitus 554502 09 E11.9 postprandi al blood sugar today 02-19-2017 is 171 mg% , HgA1C is 7.3% 06-29-2017 in office. On insulin shot and metformin. Under the care of his endocrinol ogist. Non fasting blood sugar is 156 mg%, patient is informed. HgA1c is 6.8% 01-22-2018 patient in formed. also on humalog 16 units /am, 12 units /PM. Under the care of his endocrinol ogist. Dissociati ve confusion 989302136 F44.89 [facility] Essential hypertension 78465805 I10 Patient is no longer hypertensi ve. Hyperlipidemia 36781609 E78.5 Diabetic , low saturated fat diet, exercise and lose weight. On simvastati n. and Zetia. Schizophrenia 11834496 F 20.9 [facility]. [id number] [facility] [address] [place] [address] [phone] 0 06/21/2020 08:19:48 06/22/2020 20:40:29 Gynecomastia 1232377 N62 He wants annual mammogram. Cobalamin deficiency 190 137783 E53.8 D51.1 On B 12 pill daily. Diabetes mellitus 935988 09 E11.9 postprandi al blood sugar today 02-19-2017 is 171 mg% , HgA1C is 7.3% 06-29-2017 in office. On insulin shot and metformin. Under the care of his endocrinol ogist. Non fasting blood sugar is 156 mg%, patient is informed. HgA1c is 6.8% 01-22-2018 patient in formed. also on humalog 16 units /am, 12 units /PM. Under the care of his endocrinol ogist. Essential hypertension 15503471 I10 Patient is no longer hypertensi ve. Hyperlipidemia 53608539 E78.5 Diabetic , low saturated fat diet, exercise and lose weight. On simvastati n. and Zetia. Schizophrenia 46558503 F 20.9 He has been treated by psychiatri on the regular basis. [id number] Dagoberto Rico MD [facility] ([facility]) [address] [place] [address] [phone] 0 09/26/2020 10:05:13 09/27/2020 10:11:16 Cobalamin deficiency 374323086 E53.8 D51.1 On B 12 pill daily. Diabetes mellitus 485089 09 E11.9 postprandi al blood sugar today 02-19-2017 is 171 mg% , HgA1C is 7.3% 06-29-2017 in office. On insulin shot and metformin. Under the care of his endocrinol ogist. Non fasting blood sugar is 156 mg%, patient is informed. HgA1c is 6.8% 01-22-2018 patient in formed. also on humalog 16 units /am, 12 units /PM. Under the care of his endocrinol ogist. Dissociati ve confusion 718385714 F44.89 Under the care of his psychiatri st. Essential hypertension 69646016 I10 Patient is no longer hypertensi ve. Hyperlipidemia 48495079 E78.5 Diabetic , low saturated fat diet, exercise and lose weight. On simvastati n. and Zetia. Schizophrenia 27976241 F 20.9 He has been treated by psychiatri on the regular basis. Hyperuricemia 87825301 E 79.0 Low purin diet, avoid alcohol. sea food, or red meat if possible. Lumbar sprain 575687931 S33.5XXA Has walker at home. Type 2 christine betes mellitus without complication 513473760 E11.65 Diabetic diet, exercise and keep the weight down. Acid reflux 460419957 K2 1.9 Stable. Benign pro static hyperplasia 039153634 N40.0 No symptoms. Edema of l ower extremity 874919603 R60.0 Right leg edematous. Hypothyroidism 76331099 E03.9 Stable. [id number] MD Adi Nolan (Adult Med) [address] [place] [address] [phone] 0 12/06/2020 15:15:26 12/07/2020 12:03:06 Cellulitis of left knee 1676282000 6281995 L03.116 Left knee still swollen and warm feeling. will resume ABX. [id number] MD Adi Nolan (Adult Med) [address] [place] [address] 02408-082 0 12/11/2020 15:01:54 12/12/2020 08:51:24 Diabetes mellitus 46136763 E11.9 postprandi al blood sugar today 02-19-2017 is 171 mg% , HgA1C is 7.3% 06-29-2017 in office. On insulin shot and metformin. Under the care of his endocrinol ogist. Non fasting blood sugar is 156 mg%, patient is informed. HgA1c is 6.8% 01-22-2018 patient in formed. also on humalog 16 units /am, 12 units /PM. Under the care of his endocrinol ogist. On examina tion - disorientated 248394942 R41.0 Will refer to neurologis t. Neurocogni tive disorder 243551098 R41.9 Neurologis t referral. Dementia 54737642 F03.90 Under the care of his psychiatri . Essential hypertension 33546012 I10 Patient is no longer hypertensi ve. Hyperlipidemia 11999575 E78.5 Diabetic , low saturated fat diet, exercise and lose weight. On simvastati n. and Zetia. Schizophrenia 07449779 F 20.9 He has been treated by psychiatrestephanie ramirez on the regular basis. [id number] MD Adi Nolan (Adult Med) [address] [place] [address] [phone] 03/18/2021 09:52:58 03/19/2021 11:17:54 Essential hypertension 56721389 I10 Patient is no longer hypertensi ve. BP is 94/58 mm Hg 03-18-2021 . Hyperlipidemia 20731053 E78.5 Diabetic , low saturated fat diet, exercise and lose weight. On simvastati n. and Zetia. Schizophrenia 43985710 F 20.9 [facility]. Edema of l ower extremity 061229492 R60.0 Right leg edematous. On furosemide and spironolac tone. Dissociati ve confusion 174985145 F44.89 Under the care of his psychiatri . Diabetes mellitus 637490 09 E11.9 On diabetic diet. exercise and keep the weight down. On metformin and glimepirid e. On humalog mix 75-25 insulin 20 units twice /day, will D/C novolog from his list. Dr Rico had checked with [facility] today 03-17-2022 . Cobalamin deficiency 190 916787 E53.8 D51.1 On B 12 pill daily. Hypothyroidism 11946766 E03.9 Stable. On thyroid hormone replacemen t. At [facility] risk of polypharmacy 341989107 Z91.89 Allopurino l, cyclobenza usama, novolog mix, hydrocodon e and meclizine after confirmed with patient and his pharmacy Adly,are deleted, current he is on 17 kinds of medication s according to our files. [id number] Dagoberto Rico MD [facility] (Adult Med) [address] [place] [address] [phone] 0 06/13/2021 11:42:17 06/14/2021 08:21:17 Ankle edema 40863095 R60.0 On furosemide and spironolac tone. No edema today. Cobalamin deficiency 190 117925 E53.8 D51.1 On B 12 pill daily. Diabetes mellitus 375841 09 E11.9 On diabetic diet. exercise and keep the weight down. On metformin and glimepirid e. On humalog mix 75-25 insulin 20 units twice /day, will D/C novolog from his list. Dr Rico had checked with [facility] today 03-17-2022 . Dissociati ve confusion 084041762 F44.89 Under the care of his psychiatri . Essential hypertension [id number] I10 Patient is no longer hypertensi ve. BP is 94/58 mm Hg 03-18-2021 . Hyperlipidemia 88003167 E78.5 Diabetic , low saturated fat diet, exercise and lose weight. On simvastati n. and Zetia. Schizophrenia 30617517 F 20.9 He has been treated by psychiatri on the regular basis. Hyperuricemia 91266497 E 79.0 Low purin diet, avoid alcohol. sea food, or red meat if possible. Edema of l ower extremity [id number] R60.0 Right leg edematous. On furosemide and spironolac tone. Hypothyroidism 91680459 E03.9 Stable. On thyroid hormone replacemen t. Type 2 christine betes mellitus [id number] E11.9 Diabetic diet, well controlled , his random blood sugar today is 122 mg%. his HgA1C was 6.7 % on 06-29-2017 , he is on his DM medication s and insulin shots faithfully . Under the care of his endocrinol ogist. Acid reflux [id number] K2 1.9 Stable. Renewal of prescription [id number] Z76.0 Benign pro static hyperplasia [id number] N40.0 No symptoms. [id number] Dagoberto Rico MD [facility] (Adult Med) [address] [place] [phone] 07/23/2021 15:22:38 07/24/2021 12:45:21 Diabetes mellitus 07482720 E11.9 On diabetic diet. exercise and keep the weight down. On metformin and glimepirid e. On humalog mix 75-25 insulin 20 units twice /day, will D/C novolog from his list. Dr Rico had checked with [facility] today 03-17-2022 . Has enough insulin, will refill insulin pen needles. Dissociati ve confusion [id number] F44.89 Under the care of his psychiatri st. Hyperlipidemia 84182452 E78.5 Diabetic , low saturated fat diet, exercise and lose weight. On simvastati n. and Zetia. Schizophrenia 58311837 F 20.9 He has been treated by psychiatri on the regular basis. Health Concerns Section Related Observation LastModified by Organization Detai ls LastModified Time None Recorded Concern Status LastModified by Organization Details LastModified Time None Recorded Advance Directives Directive None Recorded Payers Encounter Date Sequence Insurance Name Policy Number Policy Brunson Covered Member ID Brunson Member ID Guarantor Name 12/06/2020 2 [place]ARE OR MEDICARE REPLACEMENT PRIMARY) Emiliano Lovelace [id number] Emilianosofya Lovelace 12/06/2020 1 [facility] (MEDICARE REPLACEMENT/AD VANTAGE - PPO) [id number] Emilianosofya Lovelace [id number] Emilianosofya Lovelace 12/11/2020 2 [place] OR MEDIC[place] REPLACEMENT PRIMARY) Emilianosofya Lovelace [id number] Emilianosofya Lovelace 12/11/2020 1 [facility] (MEDICARE REPLACEMENT/AD VANTAGE - PPO) [id number] Emilianosofya Lovelace [id number] Emilianosofya Lovelace 03/18/2021 2 [place] OR MEDICARE REPLACEMENT PRIMARY) Emilianosofya Lovelace [id number] Emilianosofya Lovelace 03/18/2021 1 [facility] (MEDICARE REPLACEMENT/AD VANTAGE - PPO) [id number] Emiliano Lovelace [id number] Emiliano Lovelace 06/13/2021 2 [place] OR MEDICARE REPLACEMENT PRIMARY) Emilianosofya Lovelace [id number] Emilianosofya Lovelace 06/13/2021 1 [facility] (MEDICARE REPLACEMENT/AD VANTAGE - PPO) [id number] Emiliano Lovelace [id number] Emilianosofya Lovelace 07/23/2021 2 [place] WHEN [place] OR MEDICARE REPLACEMENT PRIMARY) Emilianosofya Lovelace [id number] Emilianosofya Lovelace 07/23/2021 1 [facility] (MEDICARE REPLACEMENT/AD VANTAGE - PPO) [id number] Emiliano Lovelace [id number] Emiliano Lovelace Notes Date Note Type Note Provider Name and Address Organization Details Recorded Time 12/06/2020 text/html Office visit, accidental fall , left knee swelling and red, warm, had been evaluated bt orthopedic DR Mendel Jackman. Being treated with ABX. Dagoberto Rico MD Attn: Accounting,[address] [facility], [place], [address], [place] 12/06/2020 16:48:40 12/11/2020 text/html ER F/U , he was sent home 3-4 days ago rom ER with meclizine. came in with case manger, patient was noticed to be disoriented, unsteady gait, uses walker, has to site on the wheel chair. dose not know to cook or drive , on lots of medications, and sometimes he forget to take. NKDA. No pain, no fever. No special complaints from himself. possible poly pharmacy. Dagoberto Rico MD Attn: Accounting,[address] [facility], [place], [address], [facility] - [facility] 12/11/2020 16:03:03 03/18/2021 text/html Office visit, allergic to sulfa, history of B12 deficiency, type 2 DM, dissociated confusion, intermittent edema of lower extremities, hypertension, dyslipidemia and schizophrenia. went thru lists of medications with him, also will contact his pharmacy to double check. Dagoberto Rico MD Attn: Accounting,[address] [facility], [place], [address], [facility] - [facility] 03/18/2021 11:43:06 06/13/2021 text/html Officer visit, allergic to sulfa, history of edema, B12 deficiency, type 2 DM, confusion, hypertension and schizophrenia. No special complaints, wants refill all medical med. Dagoberto Rico MD Attn: Accounting,[address] [facility], [place], [address], [facility] - [facility] 06/13/2021 13:00:46 07/23/2021 text/html Office visit, ty pe 2 DM on insulin shot twice /day, needs insulin pen to be refilled. allergic to sulfa. Dagoberto Rico MD Attn: Accounting[address] [place], [address], [facility] - [facility] 07/23/2021 16:26:23
--- OUTSIDE RECORDS SUMMARY | 2024-07-05 01:14 | XMS_ITS | Clinical Summary ---
Author Organization [facility] [address] [place] [address] Care Team Providers Care Washing Machine Repairer Name Role Phone Dagoberto Rico MD Primary Care Provider [phone] Allergies Active Allergy Reactions Criticality Noted Date Comments Sulfamethoxazole-Tr imethoprim Other (See comments) High 01/17/2021 Increased tremors confusion disturbance of gait and balance Venom-Honey Bee Other (See comments) Low 09/12/2023 Medications aspirin 81 mg enteric coated tablet ASPIRIN 81 MG ORAL TABLET 0 Active buPROPion XL (WELLBUTRIN XL) 300 mg 24 hr tablet 1 Active furosemide (LASIX) 40 mg tablet 1 Active omeprazole (PriLOSEC) 20 mg capsule omeprazole 20 mg capsule,delayed release Active spironolactone (ALDACTONE) 50 mg tablet 1 Active vitamin E (vitamin E) 400 unit capsule VITAMIN E 400 UNIT ORAL CAPSULE 0 Active allopurinoL (ZYLOPRIM) 100 mg tablet 1 Active benztropine (COGENTIN) 1 mg tablet 1 Active metFORMIN (GLUCOPHAGE) 500 mg tablet 1 Active HumaLOG 75/25 100 unit/mL 100 unit/mL pen for injection 1 Active risperiDONE (RisperDAL) 4 mg tablet 1 Active clonazePAM (KlonoPIN) 0.5 mg tablet 1 Active levothyroxine (SYNTHROID) 25 mcg tablet levothyroxine 25 mcg tablet Active buPROPion SR (WELLBUTRIN SR) 150 mg 12 hr tablet 1 Active cyanocobalamin (Vitamin B-12) 1,000 mcg tablet Take by mouth 0 Active ezetimibe (ZETIA) 10 mg tablet 1 Active tamsulosin (FLOMAX) 0.4 mg extended release capsule 1 Active simvastatin (ZOCOR) 20 mg tablet 1 Active naproxen (NAPROSYN) 500 mg tablet naproxen 500 mg tablet Active niacin ER (NIASPAN) 1,000 mg CR tablet niacin ER 1,000 mg tablet,extended release 24 hr 0 Active albuterol HFA (ProAir HFA) 90 mcg/actuation inhaler Inhale 9 Active lidocaine (LIDODERM) 5 % Place 1 patch on the skin daily Place patch on the left knee. Remove & discard patch within 12 hours or as directed by . 14 patch 4 Active Active Problems No known active problems Medical History Medical History Date Comments Depression Diabetes mellitus (HCC) Social History Tobacco Use Types Packs/Day Years Used Date Smoking Tobacco: Former AUDIT-C Answer Date Recorded Q1: How often do you have a drink containing alc ohol? Never 01/17/2021 Average Number of Drinks Not on file 021 Frequency of Binge Drinking Not on file 12/27 Personal Safety Answer Date Recorded Have you ever been in or are you currently in a harmful physical or emotional relationship or is someone making you feel afraid or unsafe? 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 Gender Identity Not on file Sexual Orientation Not on file Obstetrics History Last Filed Vital Signs Vital Sign Reading Time Taken Comments Blood Pressure 138/71 09/12/2023 5:30 PM CDT Pulse 77 09/12/2023 5:30 PM CDT Temperature 36.6 C (97.9 F) 09/12/2023 9:29 AM CDT Respiratory Rate 18 09/12/2023 5:30 PM CDT Oxygen Saturation 99% 09/12/2023 5:30 PM CDT Inhaled Oxygen Concentration - - Weight 75.8 kg (167 lb) 09/12/2023 9:29 AM CDT Height 165.1 cm (5' 5 ) 09/12/2023 9:29 AM CDT Body Mass Index 27.79 09/12/2023 9:29 AM CDT Plan of Treatment Health Maintenance Due Date Last Done Comments Colon Cancer Screening-Colonoscopy 1959 Depression Screening 1959 Fall Risk Assessment 1959 Hepatitis C Screening 1959 Prostate Cancer Screening-PSA 1959 DTaP/Tdap/Td Vaccine (1 - Tdap) 1970 Hepatitis B Screening 1977 Pneumococcal vaccine 65+ (1 of 2 - PCV) 1978 Zoster Vaccine (1 of 2) 2009 Covid-19 Vaccine (3 - 2023-2 5 season) 2023 05/24/2020, 04/26/2020 Influenza Vaccine (#1) 2023 , 01/21/2020, 12/21/2018, Additional history exists Abdominal Aortic Aneurysm (A AA) Screen 2024 Well Visit 65+ 2024 Insurance [place] [address] [employer] MEDICARE SOLUTIONS [facility] MEDICARE SOLUTIONS Care Teams Washing Machine Repairer Relationship Specialty Start Date End Date Dagoberto Rico MD [address] [place], [place] [id number] PCP - General Internal Medicine 12/18/20
--- OUTSIDE RECORDS SUMMARY | 2024-07-05 01:14 | XMS_ITS | Continuity of Care Document ---
Author Organization [facility] Address [address] [place] [address] Phone Care Team Providers Care Assistant Professor Of Theater Name Role Phone Chavo Samuels MD Unavailable Unavailable Procedures Procedure Date Office/outpatient Visit, Est Dilated Retinal Exam W Interpretation No IOLMaster Eye Exam & Treatment BF Plastic Sphcyl [place] To +/-4d .12-2d Frames Deluxe Tint Photochromatic, Plastic Tax - Medical Eye Exam, New Patient Dilated Retinal Exam W Interpretation Ju No Script Refraction Advance Directives Directive Yes / No Effective Date File Name No Information Encounters Encounter Description Practice Location Reason(s) For Visit Diagnoses Date Provider Providers Copied on Encounter Office/outpat ient Visit, Est [facility], [address], [place], [place], [id number], [place] tel:[phone] [facility] No Information 4-201 0 Arvind Tony. [address] [place], [place], [id number], [place]. tel:[phone] Referring Provider: Kirby Jacob, [address], [place], [address]. tel:[phone] [facility], [address], [place], [place], [id number], [place] tel:[phone] [facility] No Information Feb- 0-201 0 Robert OD Kirby. [address] [place] [address] Dr, [address], [place], [place], [facility] [place], [place]. tel:[phone] [facility], [address], [place], [place], [id number], tel:[phone] [facility] No Information [place]-2 2-200 9 [facility] [employer]. [address] [facility], [address], [place], [place], [id number], [place]. tel:[phone] Referring Provider: Po ya, [address] [place] [address] 102, [place], [place], [facility]. tel:[phone] sulting Provider: Aaron Bowling, [address] [place] [address], [place], [facility] [place]. tel:[phone] [facility], [address], [place], [place], [id number], [place] tel:[phone] [facility] No Information [place]-0 2-200 9 Penny Fontenot. [address] [place] [address] 102, [place], [place], [facility] [place], [place]. tel:[phone] Family History Family Member Type Diagnosis Age At Onset No Information Payers Payer name Insurance type Covered libertarian ID Authoriza tion(s) Medicare [facility] [id number] Medicaid [facility] [id number] Social History Type Description Quantity Date Captured [...]
--- OUTSIDE RECORDS SUMMARY | 2024-07-05 01:15 | XMS_ITS | Referral Summary ---
Author Organization [facility] Address [address] [place] [address] Care Team Providers Care Count Room Clerk Name Role Phone Unknown, Provider Primary Care Provider Unavaila ble Source Comments [facility],non-owned Affiliates and Associated Physician Practices is amultiple site organization consisting of ambulatory clinics and hospital sitesin [place], [place], [place] and [place]. This disclosure is being madepursuant to the Care Everywhere program and may not contain all information available regarding this patient. Last updated 18.[facility] Lookback Allergies Active Allergy Reactions Criticality Noted Date Comments Sulfamethoxazole W-Trimethoprim Other High 01/17/2021 Increased tremors confusion disturbance of gait and balance Medications * Be aware that medications may not be up to date on this document. Alwaysverify current medications with the patient. Medication Sig Dispensed Refills Start Date End Date Status Aspirin 81 MG CAPS ASPIRIN 81 MG ORAL TABLET Active buPROPion HCl (BUDEPRION XL PO) Take 300 mg by mouth once daily Active niacin CR (Niaspan) 1000 MG tablet NIASPAN 1000 MG ORAL TABLET EXTENDED RELEASE Active benztropine (Cogentin) 1 MG tablet BENZTROPINE MESYLATE 1 MG ORAL TABLET Active clonazePAM (KlonoPIN) 0.5 MG tablet CLONAZEPAM 0.5 MG ORAL TABLET Active cyanocobalamin (Vitamin B-12) 1000 MCG tablet Active ezetimibe (Zetia) 10 MG tablet ZETIA 10 MG ORAL TABLET Active levothyroxine (Synthroid) 25 MCG tablet levothyroxine 25 mcg tablet Active naproxen (Naprosyn) 500 MG tablet naproxen 500 mg tablet Active omeprazole EC ([facility] Omeprazole) 20 MG tablet [facility] OMEPRAZOLE 20 MG ORAL TABLET DELAYED RELEASE Active QUEtiapine (SEROquel) 100 MG tablet SEROQUEL 100 MG ORAL TABLET Active simvastatin (Zocor) 20 MG tablet SIMVASTATIN 20 MG ORAL TABLET Active tamsulosin (Flomax) 0.4 MG capsule TAMSULOSIN HCL 0.4 MG ORAL CAPSULE Active vitamin E (Tocopheryl) 400 UNIT capsule VITAMIN E 400 UNIT ORAL CAPSULE Active Active Problems No known active problems Social History Tobacco Use Types Packs/Day Years Used Date Smoking Tobacco: Former Cigarettes Smokeless Tobacco: Never Tobacco Cessation:Counseling Given: Not Answered Alcohol Use Standard Drinks/Week Comments Never 0 (1 standard drink = 0.6 oz pur e alcohol) PHQ-2 Answer Date Recorded Patient Health Questionnaire-2 Score 0 07/06/2023 Sex and Gender Information Value Date Recorded Sex Assigned at Not on file Gender Identity Not on file Sexual Orientation Not on file Last Filed Vital Signs Vital Sign Reading Time Taken Comments Blood Pressure - - Pulse - - Temperature - - Respiratory Rate - - Oxygen Saturation - - Inhaled Oxygen Concentration - - Weight 75.8 kg (167 lb) 07/27/2023 1:21 PM CDT Height 165.1 cm (5' 5 ) 07/27/2023 1:21 PM CDT Body Mass Index 27.79 07/27/2023 1:21 PM CDT Plan of Treatment Not on file Care Teams Count Room Clerk Relationship Specialty Start Date End Date Unknown, Provider PCP - General 06/28/23
--- OUTSIDE RECORDS SUMMARY | 2024-07-05 01:15 | XMS_ITS | Data Portability ---
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 We have not seen him for several years. He came in today complaining of pain in both knees. He complains that when he twists on his knees he gets pain. Typically the right knee is more painful than the left. He has no pain with walking flat level ground. He has some discomfort with stairs or getting up from seated position. Most of his pain is in the anterior and anterior medial aspect of the right knee and occasionally in the anterior aspect of the left knee. He has had no recent injuries or traumas. Patient at this point is on no anti-inflammatori es. He does live at an assisted living place and is going to talk with his caregiver about taking Aleve or ibuprofen. Physical exam: 63-year-old male he is 5 ft 3 and 180 lb. He has chronic venous stasis skin changes in both lower extremities with mild edema in both lower extremities. He has a mild effusion in the right knee with range of motion of 5-135. He has moderate medial joint line tenderness and mild pain with patellofemoral grind on the right. His left knee has no effusion. Range of motion is from 0-135 degrees. There is no tenderness about the left knee. Hip range of motion is full without discomfort bilaterally. He walks well without limp or assistance today. After ChloraPrep was used on the skin 20 mg Kenalog and 3 cc of 0.5% ropivacaine was injected into the right knee. Impression: Patient has moderate to moderately severe medial compartment osteoarthritis of the right knee. His [place] partial knee replacement on the left seems to be functioning well he has excellent range of motion x-rays look excellent. He is having a little bit of anterior knee pain in that knee. Again he is going to talk with his caregiver and see if he is able to take some Aleve or ibuprofen as this may help with the symptoms in the left. I discussed the option of cortisone injection in the right which he would like to proceed with. He can repeat these often is every 3 months. He is going to see how this injection works for him and he will call when he feels he needs additional injection is needed. At some point due to the fact that he is having advancement of the medial compartment osteoarthritis on the right knee he may need surgical intervention in the future we discussed this briefly as well. 20 minutes was spent in treatment patient more half this [id number] conversation [email or web address] Not available 06/12/2023 09:55:04 08/27/2023 08/27/2023 This note is dictated and transcribed by [employer]. Av Specialist variances may occur. Despite proofreading, typographical errors may occur. Occasional wrong-word or 'houqy-v-njqh' substitutions may have occurred due to the inherent limitations of voice recording. Read the chart carefully and recognize, using context, where substitutions have occurred. Not available 08/27/2023 12:10:26 11/26/2023 11/26/2023 This note is dictated and transcribed by [employer]. Av Specialist variances may occur. Despite proofreading, typographical errors may occur. Occasional wrong-word or 'woncw-f-hbml' substitutions may have occurred due to the inherent limitations of voice recording. Read the chart carefully and recognize, using context, where substitutions have occurred. Not available 11/26/2023 13:55:59 03/03/2024 03/03/2024 This note is dictated and transcribed by [employer]. Av Specialist variances may occur. Despite proofreading, typographical errors may occur. Occasional wrong-word or 'ekmgl-o-ukwt' substitutions may have occurred due to the inherent limitations of voice recording. Read the chart carefully and recognize, using context, where substitutions have occurred. Not available 03/03/2024 11:59:42 06/22/2024 06/22/2024 This note is dictated and transcribed by [employer]. Av Specialist variances may occur. Despite proofreading, typographical errors may occur. Occasional wrong-word or 'ocvju-c-jnsp' substitutions may have occurred due to the inherent limitations of voice recording. Read the chart carefully and recognize, using context, where substitutions have occurred. Not available 06/22/2024 15:24:04 Plan of Treatment Reminders Order Date Submit Date Provider Last Modified By Organization Details Last Modified Time Details Appointments Establish ed Patient 15 2024 09:30A M Bruce Blanton DPM Not available Not available Not available Lab None recorded. Referral None recorded. Procedures injection /aspirati on joint/bur sa (PROC) - in office procedure , administe red by provider 2023 024 [email or web address] In-Office Order, Internal Use Only DO Not Attach Compendium DO Not Attach Compendium, Do Not Delete/merge, 22017 06/11/2023 13:57:22 Surgeries None recorded. Imaging XR, knee 2023 024 [email or web address] [facility] [place], [facility], [place], [address], 06/12/2023 15:49:20 Medication Orders Kenalog 10 mg/mL suspensio n for injection [email or web address] [place] [address] , [address], [place], [place], [id number], 03/03/2024 11:35:02 ropivacai ne (PF) 5 mg/mL (0.5 %) injection solution [email or web address] , [address], [place], [place], [id number], 03/03/2024 11:35:10 Patient TargetsNo targets recorded. Patient Instructions Encounter Date Encounter Id Patient Instructions Last Modified By Organization Details Last Modified Time 08/27/2023 [id number] diabetes foot health: care instructions Not available 08/27/2023 12:10:27 Reason for Referral None Reported. Results Created Date Observation Date Name Description Value Unit Range Abnormal Flag Note LastModifiedBy Organization Detail LastModifiedTime 06/11/19 24 XR, knee No observ ation record ed. [email or web address] [facility] [address], [place], [address], 06/12/2023 09:51:21 Result Notes None recorded. Problems Name Problem SNOMED Code Status Onset Date Resolution Date Notes Provider Name and Address Organization Details Recorded Time Impacted cerumen of bilateral ears 6487912847898 108 Active 2021 Not Available [facility] 3 02:51:07 Impacted cerumen in left ear 1244629724798 101 Active 2021 Not Available [facility] 3 02:51:07 Closed fracture of left patella 1222482055782 9105 Active 2021 Not Available [facility] 3 02:51:07 Hammer toe 530396502 Active 2018 Not Available [facility] 3 02:51:07 Hearing loss 33779347 Active 2021 Not Available [facility] 3 02:51:07 Pain of right ankle joint 4235135923932 9106 Active 2018 Not Available [facility] 3 02:51:07 Radiothera py follow-up 221896559 Active Not Available [facility] 3 02:51:07 Herreid - lesion 951690862 Active 2019 Not Available [facility] 3 02:51:08 Localized, primary osteoarthr itis of the hand 803831169 Active Not Available [facility] 3 02:51:08 Peripheral venous insufficie ncy 02886662 Active 2020 Not Available [facility] 3 02:51:08 Venous insufficie ncy of leg 261538923 Active 2017 Not Available [facility] 3 02:51:08 Osteoarthr itis of knee 953258069 Active Not Available [facility] 3 02:51:08 Closed Colles' fracture 388342282 Active Not Available [facility] 3 02:51:08 Hemarthros is of left knee 9717192505108 01 Active 2021 Not Available [facility] 3 02:51:08 Depressive disorder 91664211 Active 2017 Not Available [facility] 3 02:51:08 Osteoarthr itis 499009559 Active Not Available [facility] 3 02:51:08 Onychomyco sis of toenails 135421160 Active 2017 Not Available [facility] 3 02:51:08 Hematochez ia 734125570 Active Not Available [facility] 3 02:51:08 Obesity 443443678 Active 2017 Not Available [facility] 3 02:51:08 Diabetic peripheral neuropathy 030122085 Active 2017 Not Available [facility] 3 02:51:08 Arthropath y of joint of hand 611970981 Active Not Available [facility] 3 02:51:09 Pain of right knee joint 3647842686010 00 Active 2021 Not Available [facility] 3 02:51:09 Pain of left knee joint 3504811552395 07 Active 2021 Not Available [facility] 3 02:51:09 Diabetes mellitus 56070523 Active 2017 Not Available [facility] 3 02:51:09 Dystrophia unguium 77548847 Active 2022 Bruce Blanton, BRIAN [address] [facility], [facility] [address], [place], [address] , [facility] [employer] 3 13:59:22 Bilateral osteoarthr itis of knees 4112746758648 07 Active 2023 BOO [employer] null, [facility] 4 12:26:57 Bowel problem 670680857 Active 2023 Radha Zulma em, [facility] 4 11:28:37 Disorder of eye 931642161 Active 2023 Radha Zulma em, [facility] 4 11:28:54 Hyperchole sterolemia 46667546 Active 2023 Radha Zulma em, [facility] 4 11:29:07 Bunion 978348914 Active 2023 Bruce Blanton DPM [address], [place], [address] , [facility] 4 11:59:39 Notes:URINARY/BLADDER/KIDNEY PROBLEMS use of blood thinners, Problem Notes None recorded. Procedures Surgical History Date Name Laterality Status Provider Name and Address Organization Details Recorded Time 5 Nail Debridement completed Bruce Blanton DPM [address], [place], [address], [facility] 06/22/2024 15:23:59 4 Nail Debridement completed Bruce Blanton DPM [address], [address], [place], [address], [facility] 03/03/2024 13:54:02 4 Nail Debridement completed Bruce Blanton DPM [address], [address], [place], [address], [facility] 11/26/2023 13:55:44 4 Nail Debridement completed Bruce Blanton DPM [address], [address], [place], [address], [facility] 08/27/2023 12:09:46 4 Nail Debridement completed Bruce Blanton DPM [address], [place], [address], [facility] 05/26/2023 13:50:55 3 Nail Debridement completed Bruce Blanton DPM [address], [place], [address], [employer] [facility] [employer] 02/03/2023 16:05:39 3 Callus Debridement, One completed Bruce Blanton DPM [address], [place], [address], [employer] [facility] [employer] 02/03/2023 16:05:54 3 Nail Debridement completed Bruce Blanton DPM [address], [place], [address], [employer] [facility] [employer] 11/04/2022 14:54:58 3 Nail Debridement completed Bruce Blanton DPM [address], [place], [address], [employer] [facility] 08/20/2022 13:57:57 Imaging Results Imaging Date Name Status LastModified by Organiz ation Details LastModified Time 06/11/2023 XR, knee completed [email or web address] [facility] [place] [address], [place], [address], 06/12/2023 09:51:21 Procedure Notes None recorded. Medical Equipment None Reported. Allergies Allergen ID Allergen Name Allergen Category Reaction Reaction Severity Criticality Documentation Date Start Date Code Code System Note Provider Name and Address Organization Details Recorded Time 4767 honey bee venom medicatio n Not available Not available Not available 06/25/2022 77452 7 RxNorm Not Available [facility] 3 03:00:33 Medications Name Sig Start Date Stop Date Status Note LastModified by Organization Details LastModified Time celecoxib 200 mg capsule 07/17 completed Not Available Not Available Not Available fluoxetine 40 mg capsule 06/11 completed Not Available Not Available Not Available cyclobenzap rine 10 mg tablet 12/03 completed Not Available Not Available Not Available furosemide 40 mg tablet 06/11 completed Not Available Not Available Not Available fluconazole 100 mg tablet 07/17 completed Not Available Not Available Not Available metformin 500 mg tablet active Not Available Not Available Not Available bupropion HCl SR 150 mg tablet,12 hr sustained-r elease active Not Available Not Available Not Available niacin ER 1,000 mg tablet,exte nded release 24 hr Take 1 tablet every day by oral route. 06/11 completed Not Available Not Available Not Available azithromyci n 250 mg tablet 07/17 completed Not Available Not Available Not Available ibuprofen 800 mg tablet 07/17 completed Not Available Not Available Not Available risperidone 4 mg tablet active Not Available Not Available Not Available hydrocodone 5 mg-acetamin ophen 325 mg tablet TAKE 1 TABLET BY MOUTH EVERY 6 TO 8 HOURS NEEDED FOR PAIN 06/11 completed Not Available Not Available Not Available clonazepam 0.5 mg tablet 06/11 completed Not Available Not Available Not Available Lantus U-100 Insulin 100 unit/mL subcutaneou s solution 07/17 completed Not Available Not Available Not Available potassium chloride ER 10 mEq tablet,exte nded release 07/17 completed Not Available Not Available Not Available acetaminoph en 300 mg-codeine 30 mg tablet 07/17 completed Not Available Not Available Not Available amlodipine 5 mg tablet 07/17 completed Not Available Not Available Not Available allopurinol 100 mg tablet active Not Available Not Available Not Available sulfamethox azole 800 mg-trimetho prim 160 mg tablet Take 1 tablet every 12 hours by oral route. 03/03 completed Not Available Not Available Not Available tramadol 50 mg tablet 07/17 completed Not Available Not Available Not Available quetiapine 100 mg tablet Take 1 tablet twice a day by oral route. 12/03 completed Not Available Not Available Not Available risperidone 3 mg tablet 07/17 completed Not Available Not Available Not Available triamcinolo ne acetonide 0.1 % topical cream 07/17 completed Not Available Not Available Not Available spironolact one 25 mg tablet 07/17 completed Not Available Not Available Not Available glimepiride 2 mg tablet 12/03 completed Not Available Not Available Not Available levothyroxi ne 25 mcg tablet active Not Available Not Available Not Available glimepiride 1 mg tablet 06/11 completed Not Available Not Available Not Available pantoprazol e 20 mg tablet,cruz yed release 07/17 completed Not Available Not Available Not Available risperidone 2 mg tablet 07/17 completed Not Available Not Available Not Available meloxicam 7.5 mg tablet 07/17 completed Not Available Not Available Not Available oxycodone-a cetaminophe n 5 mg-325 mg tablet 07/17 completed Not Available Not Available Not Available famotidine 20 mg tablet 06/11 completed Not Available Not Available Not Available Nitrostat 0.4 mg sublingual tablet 07/17 completed Not Available Not Available Not Available aspirin 325 mg tablet,cruz yed release TK 1 T PO QD START DAY AFTER LAST LOVENOX SHOT 07/17 completed Not Available Not Available Not Available tamsulosin 0.4 mg capsule active Not Available Not Available Not Available Humalog U-100 Insulin 100 unit/mL subcutaneou s solution 07/17 completed Not Available Not Available Not Available Kenalog 10 mg/mL suspension for injection in office procedure , administe red by provider 03/03 completed [facility]: [phone] 20 Not Available Not Available Not Available meclizine 25 mg tablet 12/03 completed Not Available Not Available Not Available hydrocodone 7.5 mg-acetamin ophen 325 mg tablet TAKE 1 TABLET BY MOUTH EVERY 6 HOURS NEEDED FOR PAIN 12/03 completed Not Available Not Available Not Available cephalexin 500 mg capsule Take 1 capsule every 6 hours by oral route for 7 days. 06/11 completed Not Available Not Available Not Available simvastatin 20 mg tablet active Not Available Not Available Not Available erythromyci n 5 mg/gram (0.5 %) eye ointment APPLY 1 STRIP TOPICALLY TO BOTH UPPER EYELIDS EVERY DAY FOR 2 MONTHS 06/11 completed Not Available Not Available Not Available nystatin 100,000 unit/gram topical cream 07/17 completed Not Available Not Available Not Available lidocaine 5 % topical patch active Not Available Not Available Not Available benztropine 1 mg tablet active Not Available Not Available Not Available omeprazole 20 mg capsule,del ayed release active Not Available Not Available Not Available thiothixene 2 mg capsule 07/17 completed Not Available Not Available Not Available mupirocin 2 % topical ointment 03/03 completed Not Available Not Available Not Available furosemide 20 mg tablet 03/03 completed Not Available Not Available Not Available ibuprofen 600 mg tablet 07/17 completed Not Available Not Available Not Available polyethylen e glycol 3350 17 gram/dose oral powder 07/17 completed Not Available Not Available Not Available clotrimazol e 1 % topical cream 07/17 completed Not Available Not Available Not Available naproxen 500 mg tablet TAKE 1 TABLET BY MOUTH TWICE DAILY WITH FOOD active Not Available Not Available No t Available spironolact one 50 mg tablet 06/11 completed Not Available Not Available Not Available nabumetone 500 mg tablet 07/17 completed Not Available Not Available Not Available amoxicillin 500 mg-potassiu m clavulanate 125 mg tablet 07/17 completed Not Available Not Available Not Available oxycodone 5 mg tablet 03/03 completed Not Available Not Available Not Available enoxaparin 30 mg/0.3 mL subcutaneou s syringe 07/17 completed Not Available Not Available Not Available pen needle, diabetic 31 gauge x 09/09 completed Not Available Not Available Not Available Novolog Mix 70-30 FlexPen U-100 Insulin 100 unit/mL subcutaneou s pen 07/17 completed Not Available Not Available Not Available ezetimibe 10 mg tablet active Not Available Not Available Not Available bupropion HCl XL 300 mg 24 hr tablet, extended release active Not Available Not Available Not Available Alcohol Prep Pads active Not Available Not Available No t Available Sure Comfort Insulin Syringe 0.3 mL 31 gauge x 16 07/17 completed Not Available Not Available Not Available Novofine Autocover 30 gauge x 1/3 needle 07/17 completed Not Available Not Available Not Available acetaminoph en active Not Available Not Available Not Available aspirin 2020 active Not Available Not Available Not Avai lable vitamin E 2020 active Not Available Not Available Not Avai lable ibuprofen 12/03 completed Not Available Not Available Not Available Ranexa 500 mg tablet,exte nded release 07/17 completed Not Available Not Available Not Available ProAir HFA 90 mcg/actuati on aerosol inhaler active Not Available Not Available Not Available Januvia 100 mg tablet 07/17 completed Not Available Not Available Not Available Lantus Solostar U-100 Insulin 100 unit/mL (3 mL) subcutaneou s pen active Not Available Not Available Not Available Humalog Mix 75-25 KwikPen U-100 insulin 100 unit/mL subcutaneou s pen 06/11 completed Not Available Not Available Not Available Humalog KwikPen Insulin 12/03 completed Not Available Not Available Not Available Onglyza 5 mg tablet 07/17 completed Not Available Not Available Not Available Senexon-S 8.6 mg-50 mg tablet TK 2 TS PO BID TO PREVENT CONSITPAT ION. HOLD FOR LOOSE STOOLS 07/17 completed Not Available Not Available Not Available B12 2020 active Not Available Not Available Not Avai lable sodium,pota ssium,mag sulfates 17.5 gram-3.13 gram-1.6 gram oral soln active Not Available Not Available Not Available ropivacaine (PF) 5 mg/mL (0.5 %) injection solution in office procedure , administe red by provider 03/03 completed [facility] [id number] -[phone] [phone] Not Available Not Available Not Available OneTouch Verio test strips USE TO CHECK BLOOD SUGAR THREE TIMES DAILY active Not Available Not Available No t Available Saphris (black may) 10 mg sublingual tablet 07/17 completed Not Available Not Available Not Available potassium chloride ER 20 mEq tablet,exte nded release 07/17 completed Not Available Not Available Not Available Fluvirin 6701-8989 45 mcg (15 mcg x 3)/0.5 mL intramuscul ar suspension 07/17 completed Not Available Not Available Not Available OneTouch Verio Flex Meter active Not Available Not Available Not Available OneTouch Ultra Blue Test Strip USE TO TEST THREE TIMES DAILY. active Not Available Not Available No t Available Afluria Quad (PF) 60 mcg (15 mcg x 4)/0.5 mL IM syringe ADM 0.5ML IM UTD 07/17 completed Not Available Not Available Not Available OneTouch Delica Plus Lancet 33 gauge USE TO TEST BLOOD SUGAR THREE TIMES DAILY 06/11 completed Not Available Not Available Not Available OneTouch Delica Plus Lancing Device kit 06/11 completed Not Available Not Available Not Available OneTouch Delica Plus Lancet 30 gauge USE TO CHECK BLOOD SUGAR THREE TIMES DAILY 06/11 completed Not Available Not Available Not Available Afluria Qd 2018- (36 mos up)(PF)60 mcg (15 mcg x4)/0.5 mL IM syringe ADM 0.5ML IM UTD 07/04 completed Not Available Not Available Not Available Proair Digihaler 12/03 completed Not Available Not Available Not Available Flucelvax Quad (PF) 60 mcg (15 mcg x 4)/0.5 mL IM syringe ADM 0.5ML IM UTD 07/04 completed Not Available Not Available Not Available Vitals Date Recorded Body height Body mass index (BMI) Body weight Provider Name and Address Organization Details Last Updated DateTime 06/11/2023 160.02 cm 31.9 kg/m2 22651.63 g BOO Pal[employer] [facility] [employer] [facility] 06/11/2023 12:29:11 Date Recorded Body height Body mass index (BMI) Body weight Heart rate Respiratory rate Oxygen saturation Oxygen saturation in Arterial blood by Pulse oximetry Provider Name and Address Organization Details Last Updated DateTime 4 160.02 cm 31.9 kg/m2 95114.6 3 g 89 /min 14 /min 98 % 98 % Roberta Flores [facility] [employer] [facility] 4 11:21:43 Date Recorded Body height Body mass index (BMI) Body weight Provider Name and Address Organization Details Last Updated DateTime 11/26/2023 160.02 cm 31.9 kg/m2 06967.63 g Radha Maya [facility] [employer] [facility] 11/26/2023 11:19:10 Date Recorded Body height Body mass index (BMI) Body weight Heart rate Respiratory rate Oxygen saturation Oxygen saturation in Arterial blood by Pulse oximetry Provider Name and Address Organization Details Last Updated DateTime 4 160.02 cm 31.9 kg/m2 33810.6 3 g 84 /min 14 /min 98 % 98 % Roberta Flores [facility] [employer] [facility] 4 11:32:54 Date Recorded Body height Heart rate Respiratory rate Body temperature Oxygen saturation Oxygen saturation in Arterial blood by Pulse oximetry Systolic blood pressure Diastolic blood pressure Provider Name and Address Organization Details Last Updated DateTime 5 160.02 cm 78 /min 18 /min 97.7 [degF] 97 % 97 % 135 mm[Hg] 71 mm[Hg] Stone Walker RN [facility] [employer] [facility] 14:59:25 Social History Question Answer Notes LastModified by Organizat ion Details LastModified Time Tobacco Smoking Status Former Smoker Radha Maya em, [facility] [employer] [facility] 11/25/2023 11:30:26 What Is Your Level Of Alcohol Consumption? None Information not available 11/25/2023 In The 14 Days Before Symptom Onset, Have You Had Close Contact With A Laboratory-confirm ed COVID-19 While That Case Was Ill? No [id number] Information not available 06/25/2022 In The 14 Days Before Symptom Onset, Have You Had Close Contact With A Person Who Is Under Investigation For COVID-19 While That Person Was Ill? No [id number] Information not available 06/25/2022 What Was The Date Of Your Most Recent Tobacco Screening? 08/23/2020 [id number] Information not available 06/25/2022 How Many Years Have You Smoked Tobacco? 10 Information not available 11/25/2023 Have You Recently Traveled Abroad? No [id number] Information not available 06/25/2022 Sex: Unknown Functional Status None recorded. Mental Status None recorded. Family History Nothing Reported Notes:Patient was adopted Medical History Condition Response ARTHRITIS Y HEART DISEASE/HEART PROBLEMS Y DIABETES, TYPE Y USE OF NSAIDS Y OBESITY Y DEPRESSION (INCLUDING POST ) Y BLOOD CLOTS Y HIGH CHOLESTEROL / HYPERLIPIDEMIA Y Past Encounters Encounter ID Performer Location Encounter Start Date Encounter Closed Date Diagnosis/Indication Diagnosis SNOMED-CT Code Diagnosis ICD10 Code Diagnosis Note [id number] [facility] [address] [place] [address] 07/05/2020 00:00:00 07/05/2020 14:33:58 [id number] [facility] [address] [facility], [address] [place] [address] 07/24/2020 00:00:00 07/24/2020 16:37:32 [id number] [facility] [address] [place] [address] 07/26/2020 00:00:00 07/26/2020 10:25:17 [id number] [facility] [address] [place] [address] 08/23/2020 00:00:00 08/23/2020 10:24:08 [id number] [facility] [address] [place] [address] 09/06/2020 00:00:00 09/06/2020 14:10:05 [id number] [facility] [address] [place] [address] 09/13/2020 00:00:00 09/13/2020 14:52:40 [id number] [facility] [address] [place] [address] 10/04/2020 00:00:00 10/04/2020 10:55:22 [id number] [facility] [address] [facility], [facility] 4 [place] [address] 10/23/2020 00:00:00 10/23/2020 13:40:44 [id number] [facility] [address] [place] [address] 10/25/2020 00:00:00 10/25/2020 10:10:34 [id number] [facility] [address] [place] [address] 11/08/2020 00:00:00 11/08/2020 10:41:31 [id number] [facility] [address] [place] [address] 11/13/2020 00:00:00 11/13/2020 14:53:25 [id number] [facility] [address] [place] [address] 11/20/2020 00:00:00 11/20/2020 11:05:45 [id number] [facility] [address] [facility], [address] [address] 02/07/2021 00:00:00 02/07/2021 13:37:28 [id number] [facility] [address] [facility], [address] [address] 05/23/2021 00:00:00 05/27/2021 18:37:41 [id number] _ATHENA_M IGRATION_ DEFAULT_1 _1 , 06/19/2021 00:00:00 06/19/2021 12:38:04 [id number] [facility] [address] [facility], [address] [address] 09/12/2021 00:00:00 09/12/2021 11:32:32 [id number] [facility] [address] [place] [address] 12/19/2021 00:00:00 12/19/2021 11:12:16 [id number] [facility] [address] [place] [address] 01/02/2022 00:00:00 01/02/2022 11:06:18 [id number] [facility] [address] [place] [address] 01/09/2022 00:00:00 01/09/2022 10:01:57 [id number] [facility] [address] [address] 03/06/2022 00:00:00 03/06/2022 09:50:01 [id number] Bruce Blanton DPM [facility] [address] [place] [address] 08/05/2022 14:59:08 08/20/2022 16:43:36 Diabetic peripheral neuropathy 079946999 E11.42 Patient educated on neuropathy , diabetes, diabetic diet, and daily foot exams. Patient is to check feet daily for new wounds, blisters, redness to prevent infection and ulceration s to the feet. Patient will return to clinic in 3 months for diabetic foot workup. Hammer toe [id number] M20 .41 M20.42 continue supportive shoe gear and offloading Denies surgical interventi on Dystrophia unguium 23649 009 L60.3 Nails 1 through 10 were debrided with sharp mechanical debridemen t without incident. Nails were debrided and greater than 50% length and thickness where needed. [id number] Bruce Blanton DPM [facility] [address], [place] [address] 11/04/2022 14:17:58 11/04/2022 15:14:14 Diabetic peripheral neuropathy 184617737 E11.42 PCP recommenda tions for diabetic controlRev iewed diabetic foot care instructio nsCheck feet daily for wounds infectionC ontinue supportive diabetic shoe gearFollow -up in 3 months Dystrophia unguium 72483 009 L60.3 Nails 1 through 10 were debrided with sharp mechanical debridemen t without incident. Nails were debrided and greater than 50% length and thickness where needed. [id number] Bruce Blanton DPM [facility] [address], [place] [address] 02/03/2023 15:43:49 02/03/2023 16:14:00 Herreid - lesion 087016311 L84 distal right 2nd toeDebride d without incidentRe commend offloading to prevent wounds infection Hammer toe 507341105 M20 .41 M20.42 continue supportive shoe gear and offloading Denies surgical interventi onfollow-u p in 3 months Diabetic p eripheral neuropathy 885930814 E11.42 PCP recommenda tions for diabetic controlRev iewed diabetic foot care instructio nsCheck feet daily for wounds infectionC ontinue supportive diabetic shoe gearFollow -up in 3 months Onychomyco sis of toenails 144757904 B35.1 Nails 1 through 10 were debrided with sharp mechanical debridemen t without incident. Nails were debrided and greater than 50% length and thickness where needed. [id number] Bruce Blanton DPM [facility] [address] [facility], [facility] 4 [place] [address] 05/05/2023 15:44:13 05/27/2023 07:27:23 Diabetic peripheral neuropathy 767133063 E11.42 PCP recommenda tions for diabetic controlRev iewed diabetic foot care instructio nsFollow-u p in 3 months Dystrophia unguium 44987 009 L60.3 Nails debrided with sharp mechanical debridemen t without incident. [id number] JCARLOS Bonds [facility] [address] [place] [address] 06/11/2023 11:39:02 06/12/2023 15:49:20 Bilateral osteoarthritis of knees [id number] 62360 M17.0 [id number] Bruce Blanton DPM [facility] [address] [place] [address], [address] [address] 08/27/2023 11:17:58 08/27/2023 15:17:26 Diabetic peripheral neuropathy 640909251 E11.42 PCP recommenda tions for diabetic controlRev iewed diabetic foot care instructio nsFollow-u p in 3 months Dystrophia unguium 27387 009 L60.3 Nails debrided with sharp mechanical debridemen t without incident. [id number] Bruce Blanton DPM [facility] [address] [place] [address], [address] [address] 11/26/2023 11:01:50 11/27/2023 08:27:58 Diabetes mellitus 07725866 E11.9 Continue diabetic control per PCP recommenda tion Diabetic p eripheral neuropathy 756514141 E11.42 PCP recommenda tions for diabetic controlRev iewed diabetic foot care instructio nsFollow-u p in 3 months Dystrophia unguium 81196 009 L60.3 Nails debrided with sharp mechanical debridemen t without incident. [id number] Bruce Blanton DPM [facility] [place] [address] [place] [address], [address] [address] 03/03/2024 11:24:51 04/22/2024 11:50:59 Diabetes mellitus 50772895 E11.9 Continue diabetic control per PCP recommenda tion Diabetic p eripheral neuropathy 576057723 E11.42 PCP recommenda tions for diabetic controlRev iewed diabetic foot care instructio nsFollow-u p in 3 months Hammer toe 955472324 M20 .41 M20.42 continue supportive shoe gear and offloading Denies surgical interventi onfollow-u p in 3 months Dystrophia unguium 79611 009 L60.3 Nails debrided with sharp mechanical debridemen t without incident. Bunion 888362215 M21.61 9 bilaterala s above- continue conservati ve offloading [id number] Bruce Blanton DPM [facility] [address] [place] [address] 06/22/2024 14:45:15 06/22/2024 15:52:44 Diabetes mellitus 61977231 E11.9 Continue diabetic control per PCP recommenda tion Diabetic p eripheral neuropathy 740058012 E11.42 PCP recommenda tions for diabetic controlRev iewed diabetic foot care instructio nsFollow-u p in 3 months Dystrophia unguium 28153 009 L60.3 Nails debrided with sharp mechanical debridemen t without incident. Health Concerns Section Related Observation LastModified by Organization Detai ls LastModified Time None Recorded Concern Status LastModified by Organization Details LastModified Time None Recorded Advance Directives Directive None Recorded Payers Encounter Date Sequence Insurance Name Policy Number Policy Brunson Covered Member ID Brunson Member ID Guarantor Name 06/11/2023 1 [facility] (MEDICARE REPLACEMENT/A DVANTAGE - PPO) [id number] Emiliano Lovelace [id number] Emiliano Lovelace 06/11/2023 2 [place]ARE OR MEDICARE REPLACEMENT PRIMARY) Emiliano Lovelace [id number] Emiliano Lovelace 08/27/2023 1 [facility] (MEDICARE REPLACEMENT/A DVANTAGE - PPO) [id number] Emiliano Lovelace [id number] Emiliano Lovelace 08/27/2023 2 [place] OR MEDICARE REPLACEMENT PRIMARY) Emiliano Lovelace [id number] Emiliano Lovelace 11/26/2023 1 [facility] (MEDICARE REPLACEMENT/A DVANTAGE - PPO) [id number] Emiliano Lovelace [id number] Emiliano Lovelace 11/26/2023 2 [place] OR MEDICARE REPLACEMENT PRIMARY) Emiliano Lovelace [id number] Emiliano Lovelace 03/03/2024 1 [facility] (MEDICARE REPLACEMENT/A DVANTAGE - PPO) [id number] Emiliano Lovelace [id number] Emiliano Lovelace 03/03/2024 2 [place] OR MEDICARE REPLACEMENT PRIMARY) Emiliano Lovelace [id number] Emiliano Lovelace 06/22/2024 1 [facility] (MEDICARE REPLACEMENT/A DVANTAGE - PPO) [id number] Emiliano Lovelace [id number] Emiliano Lovelace 06/22/2024 2 [place] OR MEDICARE REPLACEMENT PRIMARY) Emiliano Lovelace [id number] Emiliano Lovelace Notes Date Note Type Note Provider Name and Address Organization Details Recorded Time 08/27/2023 text/html . Patient is a 63-year-old male diabetic who returns the office for routine foot care. Patient states overall he is doing well denies any open wounds or infection. Patient denies any foot pain walking. Patient continues to have numbness and tingling of both feet. Patient denies any other Bruce Blanton DPM [address], [place], [address], [employer] 08/27/2023 14:49:22 11/26/2023 text/html . Patient is a 63-year-old male who is diabetic he states overall he is doing well he denies any open wounds or infection to the foot. Patient states he continues to have numbness and tingling of the feet he states it has not worsened. Patient denies any intermittent claudication with walking or rest pain. Patient continues have venous insufficiency of the lower legs but denies any open wounds or significant swelling. Patient does not wear chronic compression daily. Patient denies any other complaints. Bruce Blanton DPM [address], [place], [address], [employer] 11/26/2023 13:57:52 03/03/2024 text/html . Patient is a 63-year-old male he returns for diabetic foot care he denies any new complaints denies any open wounds or infection he does have bilateral hammertoes and bunions which he denies any pain he denies any calluses to the foot. Patient denies any foot pain with walking. Patient denies any recent open wounds. Patient states his nails are thick elongated and dystrophic he would like to have them cut. Patient denies any other complaints. Bruce Blanton DPM [address], [facility] [address], [place], [address], [employer] [facility] [employer] 03/03/2024 13:54:22 06/22/2024 text/html . Patient is a 64-year-old male diabetic he returns for diabetic foot care he denies any new complaints he states his nails are thickened elongated to which he is unable to cut them. Patient denies any recent wounds or injury of the foot. Patient continues have mild neuropathy. Bruce Blanton DPM [address], [place], [address], [employer] [facility] [employer] 06/22/2024 15:24:18
--- OUTSIDE RECORDS SUMMARY | 2024-07-05 01:15 | XMS_ITS | Clinical Summary ---
Author Organization [facility] Address [address] [place] [address] Care Team Providers Care Bus Inspector Name Role Phone Unknown, Provider Primary Care Provider Unavaila ble Source Comments [facility],non-owned Affiliates and Associated Physician Practices is amultiple site organization consisting of ambulatory clinics and hospital sitesin [place], [place], [place] and [place]. This disclosure is being madepursuant to the Care Everywhere program and may not contain all information available regarding this patient. Last updated 18.[facility] trippiece Allergies Active Allergy Reactions Criticality Noted Date [...] 07/27/2023 1:21 PM CDT Plan of Treatment Health Maintenance Due Date Last Done Comments COLOGUARD (AGES 45-75) - COL ON CA SCREENING 1959 COLON MONITORING 1959 COLONOSCOPY - COLON CA SCREENING 1959 CT COLONOGRAPHY - COLON CA SCREENING 1959 Colorectal Cancer Screening 1959 FIT - COLON CA SCREENING 1959 FLEX SIG - COLON CA SCREENING 1959 HIV SCREENING 1974 HEPATITIS C SCREENING 03/07/1977 DTAP/TDAP/TD VACCINES (1 - Tdap) 1978 PNEUMOCOCCAL VACCINE 50+ (1 of 1 - PCV) 2009 ZOSTER VACCINE (1 of 2) 2009 Respiratory Syncytial Virus (RSV) Vaccine Pt: or over 60 yrs (1 - Risk 60-74 years 1-dose series) 2019 SCREENING FOR DIABETES 07/06/2023 COVID-19 VACCINE (1 - 2023-2 5 season) 2023 INFLUENZA VACCINE (#1) 2023 AAA SCREENING 2024 DEPRESSION SCREENING 04/27/2024 06/29/2023 MEDICARE AWV CALENDAR YEAR 2024 HEPATITIS B VACCINE Aged Out No longe r eligible based on patient's age to complete this topic HIB VACCINE Aged Out No longer eligi ble based on patient's age to complete this topic HPV VACCINE Aged Out No longer eligi ble based on patient's age to complete this topic MENINGOCOCCAL (Group B) VACCINE Aged Out No longer eligible based on patient's age to complete this topic MENINGOCOCCAL VACCINE Aged Out No raven jolene eligible based on patient's age to complete this topic Care Teams Bus Inspector Relationship Specialty Start Date End Date Unknown, Provider PCP - General 06/28/23
--- OUTSIDE RECORDS SUMMARY | 2024-07-05 01:15 | XMS_ITS | Patient Health Summary ---
Author Organization [facility] Address [address] [place] [address] Care Team Providers Care Hospital Cna Name Role Phone Unknown, Provider Primary Care Provider Unavaila ble Note from [facility],non-owned Affiliates and Associated Physician Practices is amultiple site organization consisting of ambulatory clinics and hospital sitesin [place], [place], [place] and [place]. This disclosure is being madepursuant to the Care Everywhere program and may not contain all information available regarding this patient. Last updated 18.[facility] Allergies * Sulfamethoxazole W-Trimethoprim(Other) -High Criticality Medications * Be aware that medications may not be up to date on this document. Alwaysverify current medications with the patient. * Aspirin 81 MG CAPS ASPIRIN 81 MG ORAL TABLET * buPROPion HCl (BUDEPRION XL PO) Take 300 mg by mouth once daily * niacin CR (Niaspan) 1000 MG tablet NIASPAN 1000 MG ORAL TABLET EXTENDED RELEASE * benztropine (Cogentin) 1 MG tablet BENZTROPINE MESYLATE 1 MG ORAL TABLET * clonazePAM (KlonoPIN) 0.5 MG tablet CLONAZEPAM 0.5 MG ORAL TABLET * cyanocobalamin (Vitamin B-12) 1000 MCG tablet * ezetimibe (Zetia) 10 MG tablet ZETIA 10 MG ORAL TABLET * levothyroxine (Synthroid) 25 MCG tablet levothyroxine 25 mcg tablet * naproxen (Naprosyn) 500 MG tablet naproxen 500 mg tablet * omeprazole EC ([facility] Omeprazole) 20 MG tablet [facility] OMEPRAZOLE 20 MG ORAL TABLET DELAYED RELEASE * QUEtiapine (SEROquel) 100 MG tablet SEROQUEL 100 MG ORAL TABLET * simvastatin (Zocor) 20 MG tablet SIMVASTATIN 20 MG ORAL TABLET * tamsulosin (Flomax) 0.4 MG capsule TAMSULOSIN HCL 0.4 MG ORAL CAPSULE * vitamin E (Tocopheryl) 400 UNIT capsule VITAMIN E 400 UNIT ORAL CAPSULE Active Problems No known active problems Social [...] Mass Index 27.79 07/27/2023 1:21 PM CDT Procedures * XR KNEE LEFT 4VW OR MORE(Performed 07/27/2023) Performed for Orthopedic aftercare * XR ELBOW LEFT 3VW OR MORE(Performed 07/27/2023) Performed for Orthopedic aftercare * XR ELBOW LEFT 3VW OR MORE(Performed 07/06/2023) Performed for Orthopedic aftercare * CT ELBOW LEFT WO CONTRAST(Performed 06/29/2023) Performed for Nondisplaced fracture of coronoid process of left ulna, initial encounter for closed fracture Results * XR KNEE LEFT 4VW OR MORE (07/27/2023 1:31 PM CDT) Anatomical Region Laterality Modality Lower Extremity Radiographic Nora ging 07/27/2023 1:58 PM CDT Impressions 07/27/2023 1:59 PM CDT IMPRESSION: There is a left knee medial compartment hemiarthroplasty in near-anatomic position. There is no periprosthetic fracture or osteolysis. There is mild osteoarthritis of the other compartments of the knee. There is a small knee effusion. > Interpreting Provider: Preston Esqueda MD on 07/27/2023 1:59 PM Narrative 07/27/2023 1:59 PM CDT PROCEDURE: XR KNEE LEFT 4VW OR MORE DATE/TIME OF EXAM: 07/27/2023 1:31 PM CLINICAL INFORMATION: None relevant/not provided if blank. Indication: Z47.89: Orthopedic aftercare Additional History: COMPARISON: None. Procedure Note Preston Esqueda MD - 07/27/2023 PROCEDURE: XR KNEE LEFT 4VW OR MORE DATE/TIME OF EXAM: 07/27/2023 1:31 PM CLINICAL INFORMATION: None relevant/not provided if blank. Indication: Z47.89: Orthopedic aftercare Additional History: COMPARISON: None. IMPRESSION: There is a left knee medial compartment hemiarthroplasty innear-anatomic position. There is no periprosthetic fracture or osteolysis. There ismild osteoarthritis of the other compartments of the knee. There is a smallknee effusion. > Interpreting Provider: Preston Esqueda MD on 07/27/2023 1:59 PM Qasim Guerra REAL ESTATE APPRAISER SUPERVISOR-TRUCK CRANE OPERATOR DIAGNOSTIC IMAGIN G ORDERABLES * XR ELBOW LEFT 3VW OR MORE (07/27/2023 1:21 PM CDT) Only the most recent of2 resultswithin the time period is included. Anatomical Region Laterality Modality Upper Extremity Radiographic Nora ging 07/27/2023 1:56 PM CDT Impressions 07/27/2023 1:58 PM CDT IMPRESSION: There has been interval no substantial change in a mildly displaced comminuted intra-articular fracture of the coronoid process of the ulna when accounting for differences in positioning. There is an elbow effusion. > Interpreting Provider: Preston Esqueda MD on 07/27/2023 1:58 PM Narrative 07/27/2023 1:58 PM CDT PROCEDURE: XR ELBOW LEFT 3VW OR MORE DATE/TIME OF EXAM: 07/27/2023 1:21 PM CLINICAL INFORMATION: None relevant/not provided if blank. Indication: Z47.89: Orthopedic aftercare Additional History: COMPARISON: 07/06/2023 Procedure Note Preston Esqueda MD - 07/27/2023 PROCEDURE: XR ELBOW LEFT 3VW OR MORE DATE/TIME OF EXAM: 07/27/2023 1:21 PM CLINICAL INFORMATION: None relevant/not provided if blank. Indication: Z47.89: Orthopedic aftercare Additional History: COMPARISON: 07/06/2023 IMPRESSION: There has been interval no substantial change in a mildly displaced comminuted intra-articular fracture of the coronoid process of the ulna when accounting for differences in positioning. There is an elboweffusion. > Interpreting Provider: Preston Esqueda MD on 07/27/2023 1:58 PM Qasim Guerra [employer] ESTATE APPRAISER SUPERVISOR-TRUCK CRANE OPERATOR DIAGNOSTIC IMAGIN G ORDERABLES * CT ELBOW LEFT WO CONTRAST (06/29/2023 1:58 PM [employer]) Anatomical Region Laterality Modality Upper Extremity Computed Tomogra phy 06/29/2023 2:09 PM [employer] Impressions 06/29/2023 3:50 PM [employer] IMPRESSION: 1.Acute comminuted displaced fracture of the coronoid process with intra-articular extension . 2.Moderate elbow joint effusion. I, Preston Esqueda MD have personally reviewed and interpreted this examination/study. > Interpreting Provider: Preston Esqueda MD on 06/29/2023 3:50 PM Narrative 06/29/2023 3:50 PM [employer] PROCEDURE: CT ELBOW LEFT WO CONTRAST, DATE/TIME OF EXAM: 06/29/2023 1:59 PM, LOCATION [facility] INDICATION: S52.045A: Nondisplaced fracture of coronoid process of left ulna, initial encounter for closed fracture ADDITIONAL CLINICAL INFORMATION: Ordering Provider Reason For Exam: fracture COMPARISON: None. TECHNIQUE: CT of the left elbow was performed utilizing standard protocol. CT dose reduction technique was used, including Automated Exposure Control. FINDINGS: Splint material is noted along the posterior aspect of the elbow. Acute comminuted and mildly displaced fracture of the coronoid process of the ulna with intra-articular extension. Moderate effusion present. The radius and distal humerus appear intact without evidence of acute fracture. No evidence of dislocation. No significant soft tissue swelling. Procedure Note Preston Esqueda MD - 06/29/2023 PROCEDURE: CT ELBOW LEFT WO CONTRAST, DATE/TIME OF EXAM: 06/29/2023 1:59 PM, LOCATION [facility] INDICATION: S52.045A: Nondisplaced fracture of coronoid process of left ulna,initial encounter for closed fracture ADDITIONAL CLINICAL INFORMATION: Ordering Provider Reason For Exam: fracture COMPARISON: None. TECHNIQUE: CT of the left elbow was performed utilizing standard protocol. CT dose reduction technique was used, including Automated ExposureControl. FINDINGS: Splint material is noted along the posterior aspect of the elbow. Acute comminuted and mildly displaced fracture of the coronoid processof the ulna with intra-articular extension. Moderate effusion present. The radius and distal humerus appear intact without evidence of acute fracture. No evidence of dislocation. No significant soft tissue swelling. IMPRESSION: 1.Acute comminuted displaced fracture of the coronoid process with intra-articular extension . 2.Moderate elbow joint effusion. I, Preston Esqueda MD have personally reviewed and interpreted this examination/study. > Interpreting Provider: Preston Esqueda MD on 06/29/2023 3:50 PM Denice Garland MD CT ORDERABLES Care Teams Hospital Cna Relationship Specialty Start Date End Date Unknown, Provider PCP - General 06/28/23
--- OUTSIDE RECORDS SUMMARY | 2024-07-05 01:15 | XMS_ITS | Referral Summary ---
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
[2024-07-05 07:40] VITALS: BP 142/79; PULSE 81; RESP 18; TEMP 36.9; O2SAT 100
[2024-07-05 07:44] LABS: Glucose Point of Care 88 mg/dl (65-105)
[2024-07-05] MEDS: LACTATED RINGERS 1,000 ML 150 ML IV CONT (07:47)
--- NOTE | 2024-07-05 08:23 | P.PNAN_ITS ---
Anes - Initial Pre Proc Eval Procedure: Operation Date: 07/05/24 09:00 Proposed Procedures p Screening Colonoscopy - Salbador Lynn MD Date/Time: 07/05/24 08:23 Surgeon: Salbador Lynn MD Pre Op Diagnosis: screening colon Patient Data Age: 64 Gender: M Height: 1.65 m Weight: 77.1 kg Last Vital Signs Temp 36.9 C 07/05/24 07:40 Pulse 81 07/05/24 07:40 Resp 18 07/05/24 07:40 BP 142/79 H 07/05/24 07:40 Pulse Ox 100 07/05/24 07:40 O2 Del Method Room Air 07/05/24 07:40 Allergies Allergy/AdvReac Type Severity Reaction Status Date / Time sulfamethoxazole (From AdvReac Severe Confusion Verified 07/05/24 07:38 Bactrim) trimethoprim (From Bactrim) AdvReac Intermediate Confusion Verified 07/05/24 07:38 Home Medications ?Medication ?Instructions ?Recorded ?Confirmed ?Type allopurinol 100 mg tablet 100 mg PO DAILY 05/03/19 07/05/24 History benztropine 1 mg tablet 1 mg PO BID 05/03/19 07/05/24 History bupropion HCl 150 mg 24 hr tablet, See Rx Instructions .Route .COMPLEX 05/03/19 07/05/24 History extended release ezetimibe 10 mg tablet (Zetia) 10 mg PO DAILY 05/03/19 07/05/24 History omeprazole 20 mg capsule,delayed 20 mg PO DAILY 05/03/19 07/05/24 History release risperidone 4 mg tablet 4 mg PO BID 05/03/19 07/05/24 History simvastatin 20 mg tablet 20 mg PO QPM 05/03/19 07/05/24 History mecobalamin (vitamin B12) 1,000 1,000 mcg PO DAILY 11/09/19 07/05/24 History mcg chewable tablet tamsulosin 0.4 mg capsule 0.4 mg PO HS 11/09/19 07/05/24 History blood sugar diagnostic #300 ea 07/02/21 12/09/23 Rx lancets 33 gauge (OneTouch Delica #300 ea 10/30/22 12/09/23 Rx Plus Lancet) insulin glargine 100 unit/mL (3 30 unit subcut QAM 11/03/23 07/05/24 History mL) subcutaneous pen (Lantus Solostar U-100 Insulin) levothyroxine 25 mcg tablet 25 mcg PO QAM 11/03/23 07/05/24 History metformin 500 mg tablet 1,000 mg PO QPM 11/03/23 07/05/24 History aspirin 81 mg tablet,delayed 81 mg PO DAILY 12/30/23 07/05/24 History release (Adult Low Dose Aspirin) Laboratory Tests 07/05/24 07:42 POC Capillary Glucose 88 mg/dl (65-105) Patient hx anesthesia problems: none Family hx anesthesia problems: none Results Review: All pre-operative results and documents have been reviewed as part of the pre- operative evaluation. [facility] Past Medical History Medical History Gout Gastroesophageal reflux disease Schizophrenia Benign prostatic hyperplasia Hypothyroidism Dyslipidemia Insulin dependent type 2 diabetes mellitus Surgical History Surgical History History of left knee replacement Left [place] partial knee replacement per Dr. Hinton with revision on 11/10/2023. History of cataract extraction History of hand surgery left Family History Family History Other Family history unknown Social History Social History Social History: Surrogate medical decision maker: Elise Hugo, friend. Code status: Full code. Smoking packs per day: 1.5 Smoking cigarettes per day: 30.0 Years smoked: 40 Smoking pack-years: 60.00 Smoking status: Former smoker Second hand tobacco smoke exposure: Yes Alcohol intake: former Substance use: never Substance use type: does not use Do You Feel Safe in your Home?: Yes Lack of Transportation: No Lack of Food: Never True Current Housing: I Have Housing Concerned About Future Housing: No Difficulty Paying Gas/Electric Bills: No Difficulty Paying for Meds: No Currently Unemployed: No Education: High School Diploma/GED Difficulty w/ Childcare or Family Care: No Living arrangements: alone Additional living arrangements comments: supervised housing Occupation/Education: unemployed Additional occupation/education comments: disabled Gender identity (if verbalized by the patient): Male Spiritual care concerns: No Anes - Eval Final PreProcedure Day of Procedure 07/05/24 08:23 Patient weight: overweight Heart: regular rate and rhythm Lungs: clear to auscultation Airway: Mallampati scale class III Neurological: alert and oriented Last oral intake: >/= 8 hours ASA classification: III Emergent: no Anesthetic plan: proceed Anesthesia type and monitoring: general GIVS and standard monitoring Results Review: All pre-operative results and documents have been reviewed as part of the pre- operative evaluation. Informed Consent: The patient's anesthetic plan and its attendant risks and benefits were discussed with the patient/family/POA. Questions were solicited and answers provided to the satisfaction of the patient/family/POA.
--- NOTE | 2024-07-05 08:51 | PM.HPGS ---
History of Present Illness History of Present Illness Consent: Risks, benefits, and alternatives have been discussed and questions answered. Patient agrees to proceed with procedure. Chief complaint: screening colon Narrative: Emiliano Lovelace is a 64 year old male with history of colon polyp Review of Systems Review of Systems: All systems reviewed & are unremarkable except as noted in HPI and below PMFSH Past Medical History Medical History (Updated 07/05/24 @ 08:51 by Salbador Lynn MD) Colon polyp Gout Gastroesophageal reflux disease Schizophrenia Benign prostatic hyperplasia Hypothyroidism Dyslipidemia Insulin dependent type 2 diabetes mellitus Surgical History Surgical History History of left knee replacement Left [place] partial knee replacement per Dr. Hinton with revision on 11/10/2023. History of cataract extraction History of hand surgery left Family History Family History Other Family history unknown Social History Social History Social History: Surrogate medical decision maker: Elise Hugo, friend. Code status: Full code. Smoking packs per day: 1.5 Smoking cigarettes per day: 30.0 Years smoked: 40 Smoking pack-years: 60.00 Smoking status: Former smoker Second hand tobacco smoke exposure: Yes Alcohol intake: former Substance use: never Substance use type: does not use Do You Feel Safe in your Home?: Yes Lack of Transportation: No Lack of Food: Never True Current Housing: I Have Housing Concerned About Future Housing: No Difficulty Paying Gas/Electric Bills: No Difficulty Paying for Meds: No Currently Unemployed: No Education: High School Diploma/GED Difficulty w/ Childcare or Family Care: No Living arrangements: alone Additional living arrangements comments: supervised housing Occupation/Education: unemployed Additional occupation/education comments: disabled Gender identity (if verbalized by the patient): Male Spiritual care concerns: No Meds Home Medications and Allergies Home Medications ?Medication ?Instructions ?Recorded ?Confirmed ?Type allopurinol 100 mg tablet 100 mg PO DAILY 05/03/19 07/05/24 History benztropine 1 mg tablet 1 mg PO BID 05/03/19 07/05/24 History bupropion HCl 150 mg 24 hr tablet, See Rx Instructions .Route .COMPLEX 05/03/19 07/05/24 History extended release ezetimibe 10 mg tablet (Zetia) 10 mg PO DAILY 05/03/19 07/05/24 History omeprazole 20 mg capsule,delayed 20 mg PO DAILY 05/03/19 07/05/24 History release risperidone 4 mg tablet 4 mg PO BID 05/03/19 07/05/24 History simvastatin 20 mg tablet 20 mg PO QPM 05/03/19 07/05/24 History mecobalamin (vitamin B12) 1,000 1,000 mcg PO DAILY 11/09/19 07/05/24 History mcg chewable tablet tamsulosin 0.4 mg capsule 0.4 mg PO HS 11/09/19 07/05/24 History blood sugar diagnostic #300 ea 07/02/21 12/09/23 Rx lancets 33 gauge (OneTouch Delica #300 ea 10/30/22 12/09/23 Rx Plus Lancet) insulin glargine 100 unit/mL (3 30 unit subcut QAM 11/03/23 07/05/24 History mL) subcutaneous pen (Lantus Solostar U-100 Insulin) levothyroxine 25 mcg tablet 25 mcg PO QAM 11/03/23 07/05/24 History metformin 500 mg tablet 1,000 mg PO QPM 11/03/23 07/05/24 History aspirin 81 mg tablet,delayed 81 mg PO DAILY 12/30/23 07/05/24 History release (Adult Low Dose Aspirin) Allergies Allergy/AdvReac Type Severity Reaction Status Date / Time sulfamethoxazole (From AdvReac Severe Confusion Verified 07/05/24 07:38 Bactrim) trimethoprim (From Bactrim) AdvReac Intermediate Confusion Verified 07/05/24 07:38 Vital Signs Vital Signs - 24 hr 07/05/24 07:40 Temperature 98.4 F Pulse Rate 81 Respiratory Rate 18 Blood Pressure 142/79 H Pulse Oximetry 100 Oxygen Delivery Room Air Exam Const: General: comfortable and no acute distress HENMT: Face/Nose/Sinus: Normal nares present Eyes: General: appearance normal, both eyes and all related structures Neck: Neck: no JVD Resp: Auscultation: clear to auscultation bilaterally Cardio: Rate: regular rate Rhythm: regular rhythm GI: Inspection: non-distended GI Palp: Yes Soft to palpation Skin: General skin exam: normal color Neuro: Speech: normal speech Extrem: General: normal to inspection Psych: Mental Status: mental status grossly normal Assessment and Plan Assessment and plan (1) Colon polyp: Code(s): K63.5 - Polyp of colon Status: Acute Assessment and Plan: colonoscopy
[2024-07-05 09:13] VITALS: BP 105/59; PULSE 63; RESP 20; O2SAT 97
[2024-07-05 09:23] VITALS: BP 107/60; PULSE 62; RESP 18; O2SAT 98
[2024-07-05 09:33] VITALS: BP 129/67; PULSE 72; RESP 14; O2SAT 100
[2024-07-05 09:46] LABS: Glucose Point of Care 76 mg/dl (65-105)
== END 2024-07-05 09:49 | disposition home or self-care (01) ==
PROVIDERS: PCP Internal Medicine; Referring Provider Nurse Practitioner Family; Visit Provider Internal Medicine Gastroenterology
PROC: 0DJD8ZZ Inspection of Lower Intestinal Tract, Via Natural or Artificial Opening Endoscopic (ICD-10-PCS; CPT 45378; principal; 2024-07-05 09:00)
DX: Z12.11 Encounter for screening for malignant neoplasm of colon (principal); Z86.0100 Personal history of colon polyps, unspecified; E11.9 Type 2 diabetes mellitus without complications; Z87.891 Personal history of nicotine dependence
CPT/HCPCS: G0105; 82948; J2704; J7120

== ENCOUNTER 2025-01-30 13:46 | Outpatient (CLI) | payer MEDICARE, MEDICAID, SELFPAY ==
--- OUTSIDE RECORDS SUMMARY | 2010-03-20 04:30 | XMS_ITS | Continuity of Care Document ---
Author Organization [facility] Address [address] [place] [address] Phone Care Team Providers Care Soldering Inspector Name Role Phone Chavo Samuels MD Unavailable Unavailable Procedures Procedure Date Office/outpatient Visit, Est Dilated Retinal Exam W Interpretation No IOLMaster Eye Exam & Treatment BF Plastic Sphcyl Sacul To +/-4d .12-2d Frames Deluxe Tint Photochromatic, Plastic Tax - Medical Eye Exam, New Patient Dilated Retinal Exam W Interpretation Ju No Script Refraction Advance Directives Directive Yes / No Effective Date File Name No Information Encounters Encounter Description Practice Location Reason(s) For Visit Diagnoses Date Provider Providers Copied on Encounter Office/outpat ient Visit, Est [facility], [address], [place], [place], [id number], [place] tel:[phone] [facility] No Information 4-201 0 Arvind Tony. [address], [place], [id number], [place]. tel:[phone] Referring Provider: Kirby Jacob, [address], [place], [address]. tel:[phone] [facility], [address], [place], [place], [id number], [place] tel:[phone] [facility] No Information Feb- 0-201 0 Robert OD Kirby. [address] [place] [address] Dr, [address], [place], [place], [facility], [place]. tel:[phone] [facility], [address], [place], [place], [id number], tel:[phone] [facility] No Information [place]-2 2-200 9 [facility]. [address] [facility], [address], [place], [place], [id number], [place]. tel:[phone] Referring Provider: Po ya, [address] [place] [address] [address], [place], [place], [facility]. tel:[phone] sulting Provider: Aaron Bowling, [address] [place] [address], [place], [place], [facility]. tel:[phone] [facility], [address], [place], [place], [id number], [place] tel:[phone] [facility] No Information [place]-0 2-200 9 Penny Fontenot. [address] [place] [address] [address], [place], [place], [facility], [place]. tel:[phone] Family History Family Member Type Diagnosis Age At Onset No Information Payers Payer name Insurance type Covered alliance party ID Authoriza tion(s) Medicare [facility] [id number] Medicaid [facility] [id number] Social History Type Description Quantity Date Captured Comments Sex Male Smoking Status No Information Chief Complaint And Reason For Visit No Information Reason For Referral Reason For Referral No Information History Of Present Illness Encounter Date Complaint History Of Prese nt Illness No Information Functional Status Date Functional Assessmen t No Information Instructions Date Instruction Additional Infor mation No Information Assessments Type Assessment Date No Information Patient Care Teams Name Effective Dates (start - stop) Status Members No Information
--- NOTE | ~2025-01-30 | DEXA_ITS ---
Bone Density Report Name: LIZ BLACKMAN Age: 64 Sex: Male Ethnicity: White Date of : 1960 Indication: prior fracture; Referring Provider: PARVIZ SNOW Study: Bone densitometry was performed. Exam Date: January 30, 2025 Accession number: [id number] Bone Density: Region BMD T-score Z-score Classification AP Spine(L1-L4) 0.802 -2.6 -1.8 Osteoporosis Femoral Neck (Left) 0.534 -2.9 -1.9 Osteoporosis Total Hip (Left) 0.919 -0.8 -0.2 Normal Femoral Neck (Right) 0.555 -2.8 -1.7 Osteoporosis Total Hip (Right) 0.869 -1.1 -0.6 Osteopenia Total Hip Mean 0.894 -1.0 -0.4 Normal World Health Organization criteria for BMD impression classify patients as: Normal (T-score at or above -1.0), Osteopenia (T-score between -1.0 and -2.5), or Osteoporosis (T-score at or below -2.5). 10-year Fracture Risk: FRAX not reported because: Some T-score for Spine Total or Hip Total or Femoral Neck at or below -2.5 Prior hip or vertebral fracture Clinical Information Provided by Patient: Have had a previous hip or vertebral fracture Has had a low trauma fracture Patient maximum height was 65.0 Does not regularly consume dairy products Drinks caffeinated beverages Impression: The patient has established osteoporosis, based on the Left Femoral Neck T-score and the existence of a prior fracture. The patient has risk factors, including: previous fracture. Discussion: HIGH RISK OF FRACTURE. BONE DENSITY IS UNDESIRABLY LOW AT ONE OR MORE SKELETAL SITES, CONSISTENT WITH OSTEOPOROSIS. This patient's lowest T-score, in a patient who has previously fractured, meets the World Health Organization's (WHO) criteria for severe osteoporosis. In untreated patients, the risk of osteoporotic fracture increases approximately two-fold for each 1.0 SD decrease in T-score. Low bone density is not the only risk factor for fracture; also consider factors such as patient's age, frailty or poor health, risk of falling, risk of injury, previous osteoporotic fracture, family history of osteoporosis, cigarette smoking, low body weight, etc. Not everyone with low bone mineral density has osteoporosis; osteomalacia and other metabolic bone disorders should also be considered. Patients who have osteoporosis should be evaluated for specific diseases and conditions (secondary causes) that may cause or contribute to bone loss. The National Osteoporosis Foundation (NOF) recommends pharmacologic intervention for men with BMD at this level (a T-score of -2.5 or below). The patient should follow a healthful lifestyle (good nutrition with adequate calcium and vitamin D, and appropriate weight-bearing exercise). Follow-Up: Consider a repeat BMD and Vertebral Fracture Assessment (VFA) exam in 2 years or sooner if medically necessary, to reassess this patient's status. Reported by: TEDDY on 01/30/2025 2:54:00 PM. Reviewed, dictated and finalized at location A.
--- OUTSIDE RECORDS SUMMARY | 2025-01-30 14:39 | XMS_ITS | Patient Health Record ---
Author Organization [facility] Address [address] [facility] [address] [facility] [address] [place] [address] Care Team Providers Care Lithopone Mill Worker Name Role Phone Jesus Velez Unavailable [phone] Reason For Referral No Information Plan Of Treatment No Information
--- OUTSIDE RECORDS SUMMARY | 2025-01-30 14:39 | XMS_ITS | Clinical Summary ---
Author Organization [facility] Address [address] [place] [id number] Care Team Providers Care Lighting Adviser Name Role Phone Unavailable Primary Care Provider [...] Colorectal Cancer Screening Colonoscopy (10 Years) 1959 Hepatitis C 1977 DTaP, Tdap and Td Vaccines ( 1 - Tdap) 1978 Pneumococcal Vaccine: 50+ Ye ars (1 of 1 - PCV) 2009 Zoster Vaccines (1 of 2) 2009 COVID-19 Vaccine ( - 2023-2 5 season) 2024 RSV Immunization or 60+ Years (1 [...]
--- OUTSIDE RECORDS SUMMARY | 2025-01-30 14:39 | XMS_ITS | Clinical Summary ---
Author Organization [facility] Address [address] [place] [address] Care Team Providers Care It Business Analyst Name Role Phone Unknown, Provider Primary Care Provider Unavaila ble Source Comments [facility],non-owned Affiliates and Associated Physician Practices is amultiple site organization consisting of ambulatory clinics and hospital sitesin [place], [place], [place] and [place]. This disclosure is being madepursuant to the Care Everywhere program and may not contain all information available regarding this patient. Last updated 18.[facility] [email or web address] Allergies Active Allergy Reactions Criticality Noted Date Comments Sulfamethoxazole W-Trimethoprim Other High 01/17/2021 Increased tremors confusion disturbance of gait and balance Medications * Be aware that medications may not be up to date on this document. Alwaysverify current medications with the patient. 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 Gender Identity Not on file Sexual Orientation Not on file Last Filed Vital Signs Vital Sign Reading Time Taken Comments Blood Pressure - - Pulse - - Temperature - - Respiratory Rate - - Oxygen Saturation - - Inhaled Oxygen Concentration - - Weight 75.8 kg (167 lb) 07/27/2023 1:21 PM CDT Height 165.1 cm (5' 5) 07/27/2023 1:21 PM CDT Body Mass Index [...] 2009 ZOSTER VACCINE (1 of 2) 2009 SCREENING FOR DIABETES 07/06/2023 AAA SCREENING 2024 DEPRESSION SCREENING 04/27/2024 06/29/2023 MEDICARE AWV CALENDAR YEAR 2024 COVID-19 VACCINE (1 - 2023-2 5 season) 2024 INFLUENZA VACCINE (#1) 2024 Respiratory Syncytial Virus (RSV) Vaccine Pt: or over 60 yrs (1 - 1-dose 75+ series) 2034 HEPATITIS B VACCINE Aged Out No longe r eligible based on patient's age to complete this topic HIB VACCINE Aged Out No longer eligi ble based on patient's age to complete this topic HPV VACCINE Aged Out No longer eligi ble based on patient's age to complete this topic MENINGOCOCCAL (Group B) VACC INE SHARED DECISION-MAKING Aged Out No longer eligibl e based on patient's age to complete this topic MENINGOCOCCAL GROUPS A/C/Y/W VACCINE Aged Out No longer eligible b ased on patient's age to complete this topic Insurance MEDICAID - [place] [facility] MANAGED MEDICARE ADV Care Teams It Business Analyst Relationship Specialty Start Date End Date Unknown, Provider PCP - General 06/28/23
--- OUTSIDE RECORDS SUMMARY | 2025-01-30 14:39 | XMS_ITS | Clinical Summary ---
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 Gender Identity Not on file Sexual Orientation [...] 9:29 AM CDT Height 165.1 cm (5' 5) 09/12/2023 9:29 AM CDT Body Mass Index [...] 1978 Zoster Vaccine (1 of 2) 2009 Abdominal Aortic Aneurysm (A AA) Screen 2024 Well Visit 65+ 2024 Covid-19 Vaccine (3 - 2024-2 6 season) 2024 05/24/2020, 04/26/2020 Influenza Vaccine (#1) 2024 , 01/21/2020, 12/21/2018, Additional history exists Insurance [facility] [employer] [facility] [place] [employer] Address: [facility] [address] [place] [address] [employer] [facility] [place] [employer] Address: [address] [address] [place] [address] [employer] [id number] [place] [address] MEDICARE [employer] [facility] [place] [employer] Address: [address] [address] [place] [address] Care Teams Investigative Research Specialist Relationship Specialty Start Date End Date Dagoberto Rico MD [address] [place] [id number] PCP - General Internal Medicine 12/18/20
== END 2025-01-30 13:47 | disposition home or self-care (01) ==
LOC: ANHFOHIMG 13:49
PROVIDERS: PCP Internal Medicine; Visit Provider Internal Medicine
DX: M81.0 Age-related osteoporosis without current pathological fracture (principal); M85.851 Other specified disorders of bone density and structure, right thigh
CPT/HCPCS: 77080